=== PATIENT | female | born 2005 | race Caucasian/White ===

== ENCOUNTER 2024-10-26 13:47 | Outpatient (AMB) | payer MEDICAID, SELFPAY ==
--- NOTE | 2024-10-26 14:05 | OBCLNT_ITS ---
<Statement entered by Priya Jennings MD - 10/26/24 17:58> This patient was not seen today. She was sent to the lab and to have a transvaginal ultrasound as I had to go to attend the patient at the hospital. She will be rescheduled for 4 weeks. Vital Signs 10/26/24 14:06 Height 1.73 m Height Method Stated Weight 86.693 kg Weight Measurement Method Standing Scale BMI 29.0 BP 110/61 Blood Pressure Source Automatic Cuff Blood Pressure Location Left Upper Arm Position Sitting Respiration 14 Pulse 65 Pulse Source Monitor Temp 96.8 F Temp Source Oral Pulse Oximetry (%) 98 Oxygen Delivery Method Room Air Allergies/Home Meds Allergies & Medications Allergies No Known Allergies Allergy (Verified 10/26/24 14:08) Medication Reconciliation ferrous sulfate 300 mg (60 mg iron)/5 mL oral liquid 300 mg PO QDAY 10/26/24 [History Confirmed 10/26/24] folic acid 400 mcg tablet 0.4 mg PO QDAY 10/26/24 [History Confirmed 10/26/24] Intake Visit Data Collection New Patient or Established: New Patient (never been to [facility]) Reason for Visit:: care Seen by Clinical Staff ONLY (RN/MA): No Bull Driver Required: Yes Do You Feel Safe at Home: Yes Authorities Contacted: N/A PCP or OBGYN visit in last 3 months: No Hx Now: Yes Are you currently on any form of Control: No Last menstrual period: 08/21/24 Pain Present Currently: No Pain Scale Used: Caceres-Lomas/Numerical Pain scale:: 0 Smoking Status Smoking Status: Never smoker Questionnaires Covid-19 Vaccine Questionnaire Has patient been vacinated for Covid-19 Have you been vacinated for Covid-19: No PHQ-9 PHQ-2 Over the last 2 weeks, how often have you been bothered by any of the following problems? 1. Little interest or pleasure in doing things: not at all 2. Feeling down, depressed, or hopeless: not at all Total score: 0 PHQ-9 3. Trouble falling or staying asleep, or sleeping too much: Not at all 4. Feeling tired or having little energy: Not at all 5. Poor appetite or overeating: Not at all 6. Feeling bad about yourself - or that you are a failure or have let yourself or your family down: Not at all 7. Trouble concentrating on things, such as reading the newspaper or watching television: Not at all 8. Moving or speaking so slowly that other people could have noticed? - Or the opposite - being so fidgety or restless that you have been moving around a lot more than usual: not at all 9. Thoughts that you would be better off or of hurting yourself in some way: Not at all Total score: 0 Source: Developed by Drs. Miki Leigh, Smitha Nichole, Kenneth Moya and colleagues, with an educational miladis from [employer]. Depression screen completed yes Social History Living Situation History Marital Status: Lives With: Family Housing: House Tobacco History Smoking Status: Never smoker Second Hand Smoke Exposure: No Alcohol History Alcohol Intake: Former Alcohol Intake Frequency: holidays/special occasions only Substance Use History Substance Use: none Domestic Abuse History Do You Feel Safe at Home: Yes Past Medical History Past Medical History Have you ever been diagnosed with any of the following: Neurological Problems Cerebrovascular Accident (CVA): No Transient Ischemic Attacks (TIA): No Dementia: No Alzheimer's Disease: No Parkinson's Disease: No Brain Tumor: No Meningitis: No Seizures: No Epilepsy: No Multiple Sclerosis: No Cerebral Palsy: No Amyotrophic Lateral Sclerosis (ALS/Esperanza Gehrig's): No Guillain-[place] Syndrome: No Spina Bifida: No Paralysis: No Peripheral Neuropathy: No Teixeira's Palsy: No Subdural Hematoma: No Migraine: No Head Trauma: No Spinal Cord Injury: No Traumatic Brain Injury: No Cardiology Problems Myocardial Infarction: No Cardiac Arrhythmia: No Atrial Fibrillation: No Angina: No Heart Murmur: No Coronary Artery Disease: No Atherosclerotic Heart Disease: No Peripheral Vascular Disease: No Hypercholesterolemia: No Aneurysm: No Congestive Heart Failure: No Congenital Heart Disease: No Valvular Heart Disease: No Rheumatic Fever: No Cardiomyopathy: No Edema: No Pericarditis: No Cellulitis: No Hypertension: No Hypotension: No Varicose Veins: No Respiratory Problems Chronic Obstructive Pulmonary Disease (COPD): No Asthma: No Bronchitis: No Emphysema: No Pneumonia: No Pulmonary Fibrosis: No Tuberculosis: No Pulmonary Embolism: No Pulmonary Edema: No Sleep Apnea: No CPAP Dependent: No Respiratory Aspiration: No Dyspnea: No Orthopnea: No Hx Cough: No Cough: No Wheezing: No Chest Deformities: No Smoking: No Smoking Cessation Counseling: No Smoking Exposure: No Tobacco Use: No Clubbing: No Exposure to Respiratory Irritants: No Intubation: No Stomache/Intestinal Problems Liver Cancer: No Hepatitis: No Cirrhosis: No Pancreatic Cancer: No Pancreatitis: No Celiac Disease: No Gall Bladder Disease: No Gastrointestinal Bleed: No Esophageal Varices: No Justin's Esophagus: No Colitis: No Ulcerative Colitis: No Diverticulitis: No Diverticulosis: No Ulcer: No Colorectal Cancer: No Irritable Bowel: No Crohn's Disease: No Obstructive Bowel: No Hiatal Hernia: No Hemorrhoids: No Gastroesophageal Reflux Disease: No Polyps: No Obesity: No Genital/Urinary Problems Chronic Kidney Disease: No Renal Disease: No Kidney Stones: No Polycystic Kidney Disease: No Neurogenic Bladder: No Inguinal Hernia: No Dialysis: No Prostate Cancer: No Benign Prostatic Hyperplasia: No Reproductive Problems Breast Cancer: No Endometriosis: No Fibroids: No Genital Herpes: No Gonorrhea: No Pelvic Inflammatory Disease: No Polycystic Ovarian Syndrome: No Previous Pregnancies: No Syphilis: No Testicular Cancer: No Uterine Prolapse: No Musculoskeletal Problems Muscular Dystrophy: No Myasthenia Gravis: No Marfan's Syndrome: No Bone Cancer: No Arthritis: No Rheumatoid Arthritis: No Osteoporosis: No Degenerative Disk Disease: No Gout: No Scoliosis: No Carpal Tunnel Syndrome: No Fibromyalgia: No Fractures: No Degenerative Joint Disease: No Osteomyelitis: No Poliovirus: No Head,Eye,Nose,Throat Problems Cataracts: No Glaucoma: No Blind: No Retinal Detachment: No Macular Degeneration: No Chronic Ear Infections: No Deafness: No Eye Prosthesis: No Endocrine Problems Diabetes Mellitus Type 2: Yes (mother, father and grandfather) Hypoglycemia: No [place]'s Syndrome: No Art's Disease: No Hyperthyroidism: No Hypothyroidism: No Thyroid Cancer: No Parathyroid Disease: No Pituitary Disease: No Systemic Lupus Erythematosus: No Syndrome of Inappropriate Antidiuretic Hormone: No Adrenal Disease: No Graves' Disease: No Blood Problems Anemia: Yes (mother) Leukemia: No Hemophilia: No Thalassemia: No Sickle Cell Disease: Yes (mother) Clotting Problems: No Psychologic Problems Schizophrenia: No Recreational Drug Use: No Bipolar Disorder: No Depression: No Anxiety: No Behavior Problems: No Self-Mutilation: No Attention Deficit Disorder: No Attention Deficit Hyperactivity Disorder: No Depression: No Post Traumatic Stress Disorder: No Eating Disorder: No Other Problems Hospitalization: No Autoimmune Disease: No Down Syndrome: No Autism: No Developmental Delay: No Cosmetic Surgery: No Shingles: No Falls: No Blood Transfusions: No Blood Transfusion Reaction: No Anesthesia Reactions: No Organ Transplant: No Chemotherapy: No Radiation Therapy: No Hyperbaric Therapy: No MRSA: No VRSA: No Vancomycin-Resistant Enterococci: No Human Immunodeficiency Virus (HIV): No Chicken Pox: No Measles: No Mumps: No Rubella (Monegasque Measles): No Pertussis: No Klebsiella Pneumoniae Carbapenemase Producing Bacteria: No Clostridium Difficile: No Hepatitis A: No Hepatitis B: No Hepatitis C: No Communicable Disease: No Cancer: No Cervical Cancer: No Lung Cancer: No Ovarian Cancer: No Surgical History Angioplasty: No Appendectomy: No Bariatric Surgery: No Breast Surgery: No Cancer Surgery: No Carotid Endarterectomy: No Cholecystectomy: No Colectomy: No Colostomy: No Coronary Artery Bypass Graft: No Valve Replacement: No Herniorrhaphy: No Total Hip Replacement: No Total Knee Replacement: No Hysterectomy: No Pacemaker: No Sinus Surgery: No Splenectomy: No TAHBSO-Total Abdominal Hysterectomy: No Thyroidectomy: No Ureter Stent: No OB Initial Visit Menstrual History Menstrual reliability: definite Flow: normal Menstrual regularity: regular Monthly: Yes Age at menarche: 10 On control pills at conception: No Date of positive home test: 09/23/24 Associated symptoms (LMP): Reports vomiting OB History : 1 Para: 0 Hx # Pregnancies: 0 Hx Total # of Abortions (Spontaneous & Elective): 0 # of Living Children: 0 Infection History & Risk Evaluation History of STDs: none Varicella/chicken pox status: immunized Genetic Screening & History Genetic Screening/Teratology Counseling - Includes patient, baby's father, or anyone in either family with: 1. Patient's age 35 years or older as of estimated date of delivery: No 2. Thalassemia (Macedonian, Scottish, Mediterranean, or Background); MCV less than 80: No 3. Neural Tube Defect (Meningomyelocele, Spina Bifida, or Anencephaly): No 4. Congenital Heart Defect: No 5. Down Syndrome: No 6. Deangelo-Sachs (Ashkenazi Roman Catholic, Cajun, [place]awk [place]): No 7. Deya Disease (Ashkenazi Roman Catholic): No 8. Familial Dysautonomia (Ashkenazi Roman Catholic): No 9. Sickle Cell Disease or Trait (): No 10. Hemophilia or other blood disorders: No 11. Muscular Dystrophy: No 12. Cystic Fibrosis: No 13. Ayo's Chorea: No 14. Mental Retardation/Autism: No 15. Other inherited genetic or chromosomal disorder: No 16. Maternal Metabolic Disorder (EG,TYPE 1 Diabetes, PKU): No 17. Patient or baby's father had a child with defects not listed above: No 18. Recurrent loss or a stillbirth: No 19. Medications (including supplements, vitamins, herbs or otc drugs)/illicit/recreational drugs/alcohol since last menstrual period: No 20. Any other: No Infection History 1. Live with someone with TB or exposed to TB: No 2. Rash or viral illness since last menstrual period: No 3. Hepatitis B,C: No Other (see comments) Source: [employer] Review of Systems Gastrointestinal Gastrointestinal: Reports vomiting Office Procedures OB Clinic LOC & Office Proc's Nursing/Assessment Patient Status: Initial/New Patient OB Clinic Nursing Assessment: Medication Reconciliation, Update PMH in EMR and Vital Signs OB Clinic Coordination of Care: Complex Care and Chronic Disease 1-5, Consent,records obtained, informed consent, Education Simp Pt/Fam, Lab and Imaging orders, Results/Orders obtained and Staff clarify orders New Patient Charge New Patient Point Assignment: 1104 New Patient Point Charge: ASSISTANT GUEST SERVICES MANAGER Level 3 ([id number])
[2024-10-26 14:06] VITALS: BP 110/61; PULSE 65; RESP 14; TEMP 36; O2SAT 98; BMI 29.0
== END 2024-10-26 14:17 | disposition home or self-care (01) ==
LOC: HODSOBC 13:47
PROVIDERS: Supervising Provider Obstetrics & Gynecology; Visit Provider Obstetrics & Gynecology
DX: Z76.89 Persons encountering health services in other specified circumstances (principal)
CPT/HCPCS: 99203; G0463

== ENCOUNTER 2024-10-30 13:02 | Outpatient (AMB) | payer MEDICAID, SELFPAY ==
[2024-10-30 13:11] VITALS: BP 115/76; PULSE 69; RESP 14; TEMP 36.5; O2SAT 98; BMI 29.1
--- NOTE | 2024-10-30 13:11 | OBCLNT_ITS ---
Vital Signs 10/30/24 13:11 Height 1.73 m Height Method Stated Weight 87.146 kg Weight Measurement Method Standing Scale BMI 29.1 BP 115/76 Blood Pressure Source Automatic Cuff Blood Pressure Location Left Upper Arm Position Sitting Respiration 14 Pulse 69 Pulse Source Monitor Temp 97.7 F Temp Source Oral Pulse Oximetry (%) 98 Oxygen Delivery Method Room Air Allergies/Home Meds Allergies & Medications Allergies No Known Allergies Allergy (Verified 10/30/24 13:12) Medication Reconciliation ferrous sulfate 300 mg (60 mg iron)/5 mL oral liquid 300 mg PO QDAY 10/26/24 [History Confirmed 10/30/24] folic acid 400 mcg tablet 0.4 mg PO QDAY 10/26/24 [History Confirmed 10/30/24] Intake Visit Data Collection New Patient or Established: Established Patient (seen at [facility] within 3 years) Reason for Visit:: CARE Seen by Clinical Staff ONLY (RN/MA): No Mixing Machine Attendant Required: Yes Mixing Machine Attendant's name/title: Suzette Devries Do You Feel Safe at Home: Yes Authorities Contacted: N/A PCP or OBGYN visit in last 3 months: No Hx Now: Yes Are you currently on any form of Control: No Last menstrual period: 08/21/24 Pain Present Currently: No Pain Scale Used: Caceres-Lomas/Numerical Pain scale:: 0 Smoking Status Smoking Status: Never smoker Questionnaires Covid-19 Vaccine Questionnaire Has patient been vacinated for Covid-19 Have you been vacinated for Covid-19: No PHQ-9 PHQ-2 Over the last 2 weeks, how often have you been bothered by any of the following problems? 1. Little interest or pleasure in doing things: not at all 2. Feeling down, depressed, or hopeless: not at all Total score: 0 PHQ-9 3. Trouble falling or staying asleep, or sleeping too much: Not at all 4. Feeling tired or having little energy: Not at all 5. Poor appetite or overeating: Not at all 6. Feeling bad about yourself - or that you are a failure or have let yourself or your family down: Not at all 7. Trouble concentrating on things, such as reading the newspaper or watching television: Not at all 8. Moving or speaking so slowly that other people could have noticed? - Or the opposite - being so fidgety or restless that you have been moving around a lot more than usual: not at all 9. Thoughts that you would be better off or of hurting yourself in some way: Not at all Total score: 0 Source: Developed by Drs. Miki Leigh, Smitha Nichole, Kenneth Moya and colleagues, with an educational miladis from [employer]. Depression screen completed yes Social History Living Situation History Marital Status: Lives With: Family Housing: House Tobacco History Smoking Status: Never smoker Second Hand Smoke Exposure: No Alcohol History Alcohol Intake: Former Alcohol Intake Frequency: holidays/special occasions only Substance Use History Substance Use: none Domestic Abuse History Do You Feel Safe at Home: Yes Past Medical History Past Medical History Have you ever been diagnosed with any of the following: Neurological Problems Cerebrovascular Accident (CVA): No Transient Ischemic Attacks (TIA): No Dementia: No Alzheimer's Disease: No Parkinson's Disease: No Brain Tumor: No Meningitis: No Seizures: No Epilepsy: No Multiple Sclerosis: No Cerebral Palsy: No Amyotrophic Lateral Sclerosis (ALS/Esperanza Gehrig's): No Guillain-[place] Syndrome: No Spina Bifida: No Paralysis: No Peripheral Neuropathy: No Teixeira's Palsy: No Subdural Hematoma: No Migraine: No Head Trauma: No Spinal Cord Injury: No Traumatic Brain Injury: No Cardiology Problems Myocardial Infarction: No Cardiac Arrhythmia: No Atrial Fibrillation: No Angina: No Heart Murmur: No Coronary Artery Disease: No Atherosclerotic Heart Disease: No Peripheral Vascular Disease: No Hypercholesterolemia: No Aneurysm: No Congestive Heart Failure: No Congenital Heart Disease: No Valvular Heart Disease: No Rheumatic Fever: No Cardiomyopathy: No Edema: No Pericarditis: No Cellulitis: No Hypertension: No Hypotension: No Varicose Veins: No Respiratory Problems Chronic Obstructive Pulmonary Disease (COPD): No Asthma: No Bronchitis: No Emphysema: No Pneumonia: No Pulmonary Fibrosis: No Tuberculosis: No Pulmonary Embolism: No Pulmonary Edema: No Sleep Apnea: No CPAP Dependent: No Respiratory Aspiration: No Dyspnea: No Orthopnea: No Hx Cough: No Cough: No Wheezing: No Chest Deformities: No Smoking: No Smoking Cessation Counseling: No Smoking Exposure: No Tobacco Use: No Clubbing: No Exposure to Respiratory Irritants: No Intubation: No Stomache/Intestinal Problems Liver Cancer: No Hepatitis: No Cirrhosis: No Pancreatic Cancer: No Pancreatitis: No Celiac Disease: No Gall Bladder Disease: No Gastrointestinal Bleed: No Esophageal Varices: No Justin's Esophagus: No Colitis: No Ulcerative Colitis: No Diverticulitis: No Diverticulosis: No Ulcer: No Colorectal Cancer: No Irritable Bowel: No Crohn's Disease: No Obstructive Bowel: No Hiatal Hernia: No Hemorrhoids: No Gastroesophageal Reflux Disease: No Obesity: No Genital/Urinary Problems Renal Disease: No Kidney Stones: No Polycystic Kidney Disease: No Neurogenic Bladder: No Inguinal Hernia: No Dialysis: No Prostate Cancer: No Benign Prostatic Hyperplasia: No Reproductive Problems Breast Cancer: No Endometriosis: No Fibroids: No Genital Herpes: No Gonorrhea: No Pelvic Inflammatory Disease: No Polycystic Ovarian Syndrome: No Previous Pregnancies: No Syphilis: No Testicular Cancer: No Uterine Prolapse: No Musculoskeletal Problems Muscular Dystrophy: No Myasthenia Gravis: No Marfan's Syndrome: No Bone Cancer: No Arthritis: No Rheumatoid Arthritis: No Osteoporosis: No Degenerative Disk Disease: No Gout: No Scoliosis: No Carpal Tunnel Syndrome: No Fibromyalgia: No Fractures: No Degenerative Joint Disease: No Osteomyelitis: No Poliovirus: No Head,Eye,Nose,Throat Problems Cataracts: No Glaucoma: No Blind: No Retinal Detachment: No Macular Degeneration: No Chronic Ear Infections: No Deafness: No Eye Prosthesis: No Endocrine Problems Diabetes Mellitus Type 2: Yes (mother, father and grandfather) Hypoglycemia: No [place]'s Syndrome: No Art's Disease: No Hyperthyroidism: No Hypothyroidism: No Thyroid Cancer: No Parathyroid Disease: No Pituitary Disease: No Systemic Lupus Erythematosus: No Syndrome of Inappropriate Antidiuretic Hormone: No Adrenal Disease: No Graves' Disease: No Blood Problems Anemia: Yes (mother) Leukemia: No Hemophilia: No Thalassemia: No Sickle Cell Disease: Yes (mother) Clotting Problems: No Psychologic Problems Schizophrenia: No Recreational Drug Use: No Bipolar Disorder: No Depression: No Anxiety: No Behavior Problems: No Self-Mutilation: No Attention Deficit Disorder: No Attention Deficit Hyperactivity Disorder: No Depression: No Post Traumatic Stress Disorder: No Eating Disorder: No Other Problems Hospitalization: No Down Syndrome: No Autism: No Developmental Delay: No Cosmetic Surgery: No Shingles: No Falls: No Blood Transfusions: No Blood Transfusion Reaction: No Anesthesia Reactions: No Organ Transplant: No Chemotherapy: No Radiation Therapy: No Hyperbaric Therapy: No MRSA: No VRSA: No Vancomycin-Resistant Enterococci: No Human Immunodeficiency Virus (HIV): No Chicken Pox: No Measles: No Mumps: No Rubella (Greek Measles): No Pertussis: No Klebsiella Pneumoniae Carbapenemase Producing Bacteria: No Clostridium Difficile: No Hepatitis A: No Hepatitis B: No Hepatitis C: No Communicable Disease: No Cancer: No Cervical Cancer: No Lung Cancer: No Ovarian Cancer: No Surgical History Angioplasty: No Appendectomy: No Bariatric Surgery: No Breast Surgery: No Cancer Surgery: No Carotid Endarterectomy: No Cholecystectomy: No Colectomy: No Colostomy: No Coronary Artery Bypass Graft: No Valve Replacement: No Herniorrhaphy: No Total Hip Replacement: No Total Knee Replacement: No Hysterectomy: No Pacemaker: No Sinus Surgery: No Splenectomy: No TAHBSO-Total Abdominal Hysterectomy: No Thyroidectomy: No Ureter Stent: No History of Present Illness HPI Narrative Patient is a 19-year-old presenting for transfer of care from [place] at 10 weeks gestation. Last menstrual period was on 08/21/2024, with an estimated due date of 05/28/2025. Patient brought limited records, including an ultrasound performed on 10/07/2024 at 6 weeks and 5 days gestation. She reports experiencing morning sickness with vomiting. Patient denies any spotting, cramping, or other problems. She has no known long-term medical conditions. Blood group is A-positive, with a previous glucose test result of 70.8 mg/dL and hemoglobin level of 15.1. Diagnostic Test Results and Labs: - Ultrasound (10-07-2024): Performed at 6 weeks and 5 days gestation. - Blood tests from [place] (10-08-2024): - Blood group: A-positive - Glucose: 70.8 mg/dL - Hemoglobin: 15.1 g/dL - Blood work (10-30-2024): - Hepatitis B surface antigen: Negative - Hepatitis C: Negative - Hemoglobin: 15.3 g/dL - Rubella: Immune - RPR: Non-reactive - Blood group: A positive - Antibody screen: Negative - HIV: Negative OB Initial Visit Menstrual History Menstrual reliability: definite Flow: normal Menstrual regularity: regular Monthly: Yes Age at menarche: 10 On control pills at conception: No Date of positive home test: 09/23/24 Associated symptoms (LMP): Reports amenorrhea; Denies nausea, vomiting, fatigue, breast tenderness, urinary frequency, irritability, bloating or other OB History : 1 Para: 0 Hx # Pregnancies: 0 Hx Total # of Abortions (Spontaneous & Elective): 0 # of Living Children: 0 Infection History & Risk Evaluation History of STDs: none Genetic Screening & History Genetic Screening/Teratology Counseling - Includes patient, baby's father, or anyone in either family with: 1. Patient's age 35 years or older as of estimated date of delivery: No 2. Thalassemia (Icelandic, Icelandic, Mediterranean, or Background); MCV less than 80: No 3. Neural Tube Defect (Meningomyelocele, Spina Bifida, or Anencephaly): No 4. Congenital Heart Defect: No 5. Down Syndrome: No 6. Deangelo-Sachs (Ashkenazi Orthodox, Cajun, Amharic [place]): No 7. Deya Disease (Ashkenazi Orthodox): No 8. Familial Dysautonomia (Ashkenazi Orthodox): No 9. Sickle Cell Disease or Trait (): No 10. Hemophilia or other blood disorders: No 11. Muscular Dystrophy: No 12. Cystic Fibrosis: No 13. Springer's Chorea: No 14. Mental Retardation/Autism: No 15. Other inherited genetic or chromosomal disorder: No 16. Maternal Metabolic Disorder (EG,TYPE 1 Diabetes, PKU): No 17. Patient or baby's father had a child with defects not listed above: No 18. Recurrent loss or a stillbirth: No 19. Medications (including supplements, vitamins, herbs or otc drugs)/illicit /recreational drugs/alcohol since last menstrual period: No 20. Any other: No Infection History 1. Live with someone with TB or exposed to TB: No 2. Rash or viral illness since last menstrual period: No 3. Hepatitis B,C: No Other (see comments) Source: [employer] OB Flowsheet OB Flowsheet Initial Weight: Not Recorded Date -?-?-?-?-?-?-?-?-?-?-?-?- EGA Weight Edema CTX Effacement BP Fundal ht Pres Dilation Effacement Station Visit Note Alb Glu FHR Mov 10/30/24 -?-?-?-?-?-?-?-?-?-?-?-?- 10w 0d 87.146 kg 115/76 Plea se see notes Review of Systems Review of Systems Systems Reviewed: All systems reviewed, normal except as documented Constitutional Constitutional: Denies fatigue Gastrointestinal Gastrointestinal: Denies bloating, Denies nausea and Denies vomiting Genitourinary Genitourinary: Reports amenorrhea and Denies urinary frequency Psychiatric Psychiatric: Denies irritability Endocrine Endocrine: Denies fatigue Exam General Limitations: no limitations General Appearance: alert, in no apparent distress, comfortable, cooperative, healthy appearing, well developed and well groomed Head Head exam: atraumatic, normocephalic and normal inspection Neck Neck exam: Present normal inspection, full ROM and trachea midline Chest Chest inspection: Present normal inspection and symmetric chest wall rise Abdominal Abdominal exam: Present soft and normal bowel sounds Extremities Extremities exam: Present normal inspection and full ROM Back Back exam: Present normal inspection and full ROM Psych Psychiatric exam: Present normal affect and normal mood Skin Skin exam: Present warm, dry, intact and normal color Assessment & Plan Diagnosis / Problem List (1) Young primigravida in first trimester: Status: Acute Plan: , 10 weeks gestation: - Patient is 19-year-old at 10 weeks gestation based on LMP of 08/21/2024, VITO 05/28/2025. - Previous ultrasound at 6w5d on 10/07/2024 reviewed. - Recent labs: A+ blood type, glucose 70.8 mg/dL, hemoglobin 15.1 g/dL. - Patient reports nausea and vomiting. - Current exam revealed suboptimal ultrasound images. - Labs from 10/30/2024: hep B surface antigen negative, hep C negative, hemoglobin 15.3 g/dL, rubella immune, RPR non-reactive, blood type A+ with negative antibody screen, HIV negative. - First , no long-term medical problems such as asthma. Plan: - Schedule outpatient ultrasound for better imaging. - Await pending lab results: gonorrhea, chlamydia, and NIPT. - Continue vitamins; no additional iron supplementation needed due to good hemoglobin levels. - Follow-up appointment in one week after outpatient ultrasound. (2) Hyperemesis gravidarum: Status: Acute Plan: Prescribed Diclegis and ZOfran Review in 1 week ER precautions discussed (3) : Status: Acute Office Procedures OB Clinic LOC & Office Proc's Nursing/Assessment Patient Status: Established Patient OB Clinic Nursing Assessment: Medication Reconciliation, Update PMH in EMR and Vital Signs OB Clinic Coordination of Care: Complex Care and Chronic Disease 1-5, Consent,records obtained, informed consent, Education Simp Pt/Fam, 1 Ins Authorization, Lab and Imaging orders, Results/Orders obtained and Staff clarify orders Special Needs: Heart tones Established Patient Charge Established Patient Point Assignment: 150 Established Patient Point Charge: EP Level 4 (120-155) Antepartum Initial or Follow-up Antepartum Initial Visit: Yes Bedside Ultrasounds US Transabdominal >14 weeks at bedside: Yes
== END 2024-10-30 13:32 | disposition home or self-care (01) ==
LOC: HODSOBC 13:02
PROVIDERS: Supervising Provider Obstetrics & Gynecology; Visit Provider Obstetrics & Gynecology
DX: O09.891 Supervision of other high risk pregnancies, first trimester (principal); O21.0 Mild hyperemesis gravidarum; Z3A.10 10 weeks gestation of pregnancy
CPT/HCPCS: 76805; 99204; 99214; G0463

== ENCOUNTER 2024-11-06 10:50 | Outpatient (AMB) | payer MEDICAID, SELFPAY ==
--- NOTE | 2024-11-06 10:57 | AMB.OBVISIT ---
Vital Signs 11/06/24 10:58 Height 1.73 m Height Method Stated Weight 86.636 kg Weight Measurement Method Standing Scale BMI 28.9 BP 113/75 Blood Pressure Source Automatic Cuff Blood Pressure Location Left Upper Arm Position Sitting Respiration 16 Pulse 83 Pulse Source Monitor Temp 96.3 F L Temp Source Oral Pulse Oximetry (%) 96 Oxygen Delivery Method Room Air Allergies/Home Meds Allergies & Medications Allergies No Known Allergies Allergy (Verified 11/06/24 10:59) Medication Reconciliation ferrous sulfate 300 mg (60 mg iron)/5 mL oral liquid 300 mg PO QDAY 10/26/24 [History Confirmed 11/06/24] folic acid 400 mcg tablet 0.4 mg PO QDAY 10/26/24 [History Confirmed 11/06/24] doxylamine 10 mg-pyridoxine (vit B6) 10 mg tablet,delayed release (Diclegis) 1 tab PO QDAY 30 days #30 tabs 11/06/24 [Rx] ondansetron 4 mg disintegrating tablet 4 mg PO Q6H PRN nausea and vomiting 30 days #120 tabs 11/06/24 [Rx] vitamins no.119-iron fumarate 29 mg-folic acid 1 mg tablet 1 tab PO QDAY 90 days #90 tabs 11/06/24 [Rx] Intake Visit Data Collection New Patient or Established: Established Patient (seen at [facility] within 3 years) Reason for Visit:: OBI Seen by Clinical Staff ONLY (RN/MA): No Wraparound Facilitator Required: Yes Wraparound Facilitator's name/title: DARENROBERTO CARLOS HERBERT / MEDICAL ASSITANT Do You Feel Safe at Home: Yes Authorities Contacted: N/A PCP or OBGYN visit in last 3 months: Yes Date of Last PCP or OBGYN visit: 10/30/24 Hx Now: Yes Are you currently on any form of Control: No Pain Present Currently: No Pain Scale Used: Caceres-Lomas/Numerical Pain scale:: 0 Smoking Status Smoking Status: Never smoker Questionnaires Covid-19 Vaccine Questionnaire Has patient been vacinated for Covid-19 Have you been vacinated for Covid-19: Yes PHQ-9 PHQ-2 Over the last 2 weeks, how often have you been bothered by any of the following problems? 1. Little interest or pleasure in doing things: not at all 2. Feeling down, depressed, or hopeless: not at all Total score: 0 PHQ-9 3. Trouble falling or staying asleep, or sleeping too much: Not at all 4. Feeling tired or having little energy: Not at all 5. Poor appetite or overeating: Not at all 6. Feeling bad about yourself - or that you are a failure or have let yourself or your family down: Not at all 7. Trouble concentrating on things, such as reading the newspaper or watching television: Not at all 8. Moving or speaking so slowly that other people could have noticed? - Or the opposite - being so fidgety or restless that you have been moving around a lot more than usual: not at all 9. Thoughts that you would be better off or of hurting yourself in some way: Not at all Total score: 0 If you checked off any problems, how difficult have these problems made it for you to do your work, take care of things at home, or get along with other people?: not difficult at all Source: Developed by Drs. Miki Leigh, Smitha Nichole, Kenneth Moya and colleagues, with an educational miladis from [employer]. Depression screen completed yes Social History Living Situation History Marital Status: Single Lives With: Family Housing: House Tobacco History Smoking Status: Never smoker Second Hand Smoke Exposure: No Alcohol History Alcohol Intake: Former Alcohol Intake Frequency: holidays/special occasions only Substance Use History Substance Use: none Domestic Abuse History Do You Feel Safe at Home: Yes Past Medical History Past Medical History Have you ever been diagnosed with any of the following: Neurological Problems Cerebrovascular Accident (CVA): No Transient Ischemic Attacks (TIA): No Dementia: No Alzheimer's Disease: No Parkinson's Disease: No Brain Tumor: No Meningitis: No Seizures: No Epilepsy: No Multiple Sclerosis: No Cerebral Palsy: No Amyotrophic Lateral Sclerosis (ALS/Esperanza Gehrig's): No Guillain-Girdletree Syndrome: No Spina Bifida: No Paralysis: No Peripheral Neuropathy: No Teixeira's Palsy: No Subdural Hematoma: No Migraine: No Head Trauma: No Spinal Cord Injury: No Traumatic Brain Injury: No Cardiology Problems Myocardial Infarction: No Cardiac Arrhythmia: No Atrial Fibrillation: No Angina: No Heart Murmur: No Coronary Artery Disease: No Atherosclerotic Heart Disease: No Peripheral Vascular Disease: No Hypercholesterolemia: No Aneurysm: No Congestive Heart Failure: No Congenital Heart Disease: No Valvular Heart Disease: No Rheumatic Fever: No Cardiomyopathy: No Edema: No Pericarditis: No Cellulitis: No Hypertension: No Hypotension: No Varicose Veins: No Respiratory Problems Chronic Obstructive Pulmonary Disease (COPD): No Asthma: No Bronchitis: No Emphysema: No Pneumonia: No Pulmonary Fibrosis: No Tuberculosis: No Pulmonary Embolism: No Pulmonary Edema: No Sleep Apnea: No CPAP Dependent: No Respiratory Aspiration: No Dyspnea: No Orthopnea: No Hx Cough: No Cough: No Wheezing: No Chest Deformities: No Smoking: No Smoking Cessation Counseling: No Smoking Exposure: No Tobacco Use: No Clubbing: No Exposure to Respiratory Irritants: No Intubation: No Stomache/Intestinal Problems Liver Cancer: No Hepatitis: No Cirrhosis: No Pancreatic Cancer: No Pancreatitis: No Celiac Disease: No Gall Bladder Disease: No Gastrointestinal Bleed: No Esophageal Varices: No Justin's Esophagus: No Colitis: No Ulcerative Colitis: No Diverticulitis: No Diverticulosis: No Ulcer: No Colorectal Cancer: No Irritable Bowel: No Crohn's Disease: No Obstructive Bowel: No Hiatal Hernia: No Hemorrhoids: No Gastroesophageal Reflux Disease: No Obesity: No Genital/Urinary Problems Renal Disease: No Kidney Stones: No Polycystic Kidney Disease: No Neurogenic Bladder: No Inguinal Hernia: No Dialysis: No Prostate Cancer: No Benign Prostatic Hyperplasia: No Reproductive Problems Breast Cancer: No Endometriosis: No Fibroids: No Genital Herpes: No Gonorrhea: No Pelvic Inflammatory Disease: No Polycystic Ovarian Syndrome: No Previous Pregnancies: No Syphilis: No Testicular Cancer: No Uterine Prolapse: No Musculoskeletal Problems Muscular Dystrophy: No Myasthenia Gravis: No Marfan's Syndrome: No Bone Cancer: No Arthritis: No Rheumatoid Arthritis: No Osteoporosis: No Degenerative Disk Disease: No Gout: No Scoliosis: No Carpal Tunnel Syndrome: No Fibromyalgia: No Fractures: No Degenerative Joint Disease: No Osteomyelitis: No Poliovirus: No Head,Eye,Nose,Throat Problems Cataracts: No Glaucoma: No Blind: No Retinal Detachment: No Macular Degeneration: No Chronic Ear Infections: No Deafness: No Eye Prosthesis: No Endocrine Problems Diabetes Mellitus Type 2: Yes (mother, father and grandfather) Hypoglycemia: No Ching's Syndrome: No Art's Disease: No Hyperthyroidism: No Hypothyroidism: No Thyroid Cancer: No Parathyroid Disease: No Pituitary Disease: No Systemic Lupus Erythematosus: No Syndrome of Inappropriate Antidiuretic Hormone: No Adrenal Disease: No Graves' Disease: No Blood Problems Anemia: Yes (mother) Leukemia: No Hemophilia: No Thalassemia: No Sickle Cell Disease: Yes (mother) Clotting Problems: No Psychologic Problems Schizophrenia: No Recreational Drug Use: No Bipolar Disorder: No Depression: No Anxiety: No Behavior Problems: No Self-Mutilation: No Attention Deficit Disorder: No Attention Deficit Hyperactivity Disorder: No Depression: No Post Traumatic Stress Disorder: No Eating Disorder: No Other Problems Hospitalization: No Down Syndrome: No Autism: No Developmental Delay: No Cosmetic Surgery: No Shingles: No Falls: No Blood Transfusions: No Blood Transfusion Reaction: No Anesthesia Reactions: No Organ Transplant: No Chemotherapy: No Radiation Therapy: No Hyperbaric Therapy: No MRSA: No VRSA: No Vancomycin-Resistant Enterococci: No Human Immunodeficiency Virus (HIV): No Chicken Pox: No Measles: No Mumps: No Rubella (Icelandic Measles): No Pertussis: No Klebsiella Pneumoniae Carbapenemase Producing Bacteria: No Clostridium Difficile: No Hepatitis A: No Hepatitis B: No Hepatitis C: No Communicable Disease: No Cancer: No Cervical Cancer: No Lung Cancer: No Ovarian Cancer: No Surgical History Angioplasty: No Appendectomy: No Bariatric Surgery: No Breast Surgery: No Cancer Surgery: No Carotid Endarterectomy: No Cholecystectomy: No Colectomy: No Colostomy: No Coronary Artery Bypass Graft: No Valve Replacement: No Herniorrhaphy: No Total Hip Replacement: No Total Knee Replacement: No Hysterectomy: No Pacemaker: No Sinus Surgery: No Splenectomy: No TAHBSO-Total Abdominal Hysterectomy: No Thyroidectomy: No Ureter Stent: No History of Present Illness HPI Narrative The patient reports no nausea for the last 3 days. The patient denies any bleeding or spotting. Review of Systems Review of Systems Systems Reviewed: All systems reviewed, normal except as documented Visit VITO Calculator Estimated Delivery Date Method Current WG Current Estimate 05/28/25 LMP (Certain) 11w 0d Other Estimates 06/02/25 Ultrasound #1 10w 2d Initial Weight: Not Recorded Date <del>?</del> EGA Weight Edema CTX Effacement BP Fundal ht Pres Dilation Effacement Station Visit Note Alb Glu FHR Mov 10/30/24 <del>?</del> 10w 0d 87.146 kg 115/76 Please see notes Exam General Limitations: no limitations General Appearance: alert, in no apparent distress, comfortable, cooperative, healthy appearing, well developed and well groomed Head Head exam: atraumatic, normocephalic and normal inspection Eye Eye exam: Present normal appearance, PERRL and EOMI ENT ENT exam: Present normal exam, normal oropharynx and mucous membranes moist Neck Neck exam: Present normal inspection, full ROM and trachea midline Card Cardiovascular exam: Present regular rate, normal rhythm and normal heart sounds Abdominal Abdominal exam: Present soft and normal bowel sounds Exp OB exam: Present other (- Abdomen: Ultrasound performed. Fetus visualized with movement observed. heart rate measured at 174 bpm.) Extremities Extremities exam: Present normal inspection and full ROM Back Back exam: Present normal inspection and full ROM Psych Psychiatric exam: Present normal affect and normal mood Skin Skin exam: Present warm, dry, intact and normal color Assessment & Plan Diagnosis / Problem List (1) : Status: Acute (2) Hyperemesis gravidarum: Status: Acute (3) Young primigravida in first trimester: Status: Acute Plan: 19yo @11w0d by LMP VITO 05/28/2025 c/w 626d sono Patient is at 8 weeks and 5 days gestation based on today's ultrasound. However, a previous ultrasound from October 13 at 6 weeks and 6 days is considered more accurate for dating. heartbeat was observed at 174 bpm. No reported nausea for the past 3 days. No bleeding or spotting reported. - Due date set as May 28 by LMP c/w based on 6-week ultrasound - Follow-up appointment scheduled in 4 weeks - Additional blood tests to be performed at next appointment - Prescription for nausea medication provided - Ultrasound images to be scanned into medical record Additional Plan Follow Up: 4 Weeks Office Procedures OB Clinic LOC & Office Proc's Nursing/Assessment Patient Status: Established Patient OB Clinic Nursing Assessment: BP Monitoring, Medication Reconciliation, Update PMH in EMR and Vital Signs OB Clinic Coordination of Care: Consent,records obtained, informed consent, Education Simp Pt/Fam and Staff clarify orders Special Needs: Heart tones Established Patient Charge Established Patient Point Assignment: 105 Established Patient Point Charge: EP Level 3 (80-115) Bedside Ultrasounds US Transabdominal <14 weeks at bedside: Yes
[2024-11-06 10:58] VITALS: BP 113/75; PULSE 83; RESP 16; TEMP 35.7; O2SAT 96; BMI 28.9
== END 2024-11-06 11:32 | disposition home or self-care (01) ==
LOC: HODSOBC 10:50
PROVIDERS: PCP Obstetrics & Gynecology; Referring Provider Obstetrics & Gynecology; Supervising Provider Obstetrics & Gynecology; Visit Provider Obstetrics & Gynecology
DX: O09.891 Supervision of other high risk pregnancies, first trimester (principal); Z3A.11 11 weeks gestation of pregnancy; O21.0 Mild hyperemesis gravidarum
CPT/HCPCS: 76801; 99213; G0463

== ENCOUNTER → 2024-11-26 | Outpatient (CLI) | payer MEDICAID, SELFPAY ==
--- NOTE | 2024-11-26 15:00 | XR_ITS ---
Examination: Complete OB ultrasound, less than 14 weeks, transabdominal Date and time of exam: November 26, 2024 at 1510 hours INDICATIONS: Encounter for supervision of normal Technique: Obstetrical ultrasound images less than 14 weeks performed via transabdominal imaging Findings: A normal shaped single intrauterine gestation is present in the uterus. pole 7.7 cm corresponds to 13 weeks 5 days gestational age Cardiac motion 157 BPM Ultrasonographic survey of visible and placental structures unremarkable. Amniotic fluid volume appears appropriate for this estimated gestational age. Right ovary 2.5 cm arterial flow Left ovary obscured by bowel gas IMPRESSION: Viable intrauterine gestation 13 weeks 5 days.
== END | disposition home or self-care (01) ==
PROVIDERS: PCP Family Medicine; Referring Provider Obstetrics & Gynecology; Visit Provider Obstetrics & Gynecology
DX: Z34.90 Encounter for supervision of normal pregnancy, unspecified, unspecified trimester (principal)
CPT/HCPCS: 76801

== ENCOUNTER 2024-12-04 09:47 | Outpatient (AMB) | payer MEDICAID, SELFPAY ==
[2024-12-04 09:58] VITALS: BP 138/83; PULSE 98; RESP 18; TEMP 36; O2SAT 99; BMI 29.2
--- NOTE | 2024-12-04 09:58 | OBCLNT_ITS ---
Vital Signs 12/04/24 09:58 Height 1.73 m Height Method Stated Weight 87.543 kg Weight Measurement Method Standing Scale BMI 29.2 BP 138/83 H Blood Pressure Source Automatic Cuff Blood Pressure Location Left Upper Arm Position Sitting Respiration 18 Pulse 98 Pulse Source Monitor Temp 96.8 F Temp Source Oral Pulse Oximetry (%) 99 Oxygen Delivery Method Room Air Allergies/Home Meds Allergies & Medications Allergies No Known Allergies Allergy (Verified 12/04/24 09:59) Medication Reconciliation ferrous sulfate 300 mg (60 mg iron)/5 mL oral liquid 300 mg PO QDAY 10/26/24 [History Confirmed 12/04/24] folic acid 400 mcg tablet 0.4 mg PO QDAY 10/26/24 [History Confirmed 12/04/24] doxylamine 10 mg-pyridoxine (vit B6) 10 mg tablet,delayed release (Diclegis) 1 tab PO QDAY 30 days #30 tabs 11/06/24 [Rx Confirmed 12/04/24] ondansetron 4 mg disintegrating tablet 4 mg PO Q6H PRN nausea and vomiting 30 days #120 tabs 11/06/24 [Rx Confirmed 12/04/24] vitamins no.119-iron fumarate 29 mg-folic acid 1 mg tablet 1 tab PO QDAY 90 days #90 tabs 11/06/24 [Rx Confirmed 12/04/24] Intake Visit Data Collection New Patient or Established: Established Patient (seen at [facility] within 3 years) Reason for Visit:: OBC Seen by Clinical Staff ONLY (RN/MA): No 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 Kiln Car Repairer's name/title: DAREN HERBERT / NATUROP[employer]IC [employer]OG[employer] PROVIDER Do You Feel Safe at Home: Yes Authorities Contacted: N/A PCP or OBGYN visit in last 3 months: Yes Date of Last PCP or OBGYN visit: 11/26/24 Hx Now: Yes Are you currently on any form of Control: No Pain Present Currently: No Pain Scale Used: Caceres-Lomas/Numerical Pain scale:: 0 Smoking Status Smoking Status: Never smoker Questionnaires Covid-19 Vaccine Questionnaire Has patient been vacinated for Covid-19 Have you been vacinated for Covid-19: Yes PHQ-9 PHQ-2 Over the last 2 weeks, how often have you been bothered by any of the following problems? 1. Little interest or pleasure in doing things: not at all PHQ-9 3. Trouble falling or staying asleep, or sleeping too much: Not at all 4. Feeling tired or having little energy: Not at all 5. Poor appetite or overeating: Not at all 6. Feeling bad about yourself - or that you are a failure or have let yourself or your family down: Not at all 7. Trouble concentrating on things, such as reading the newspaper or watching television: Not at all 8. Moving or speaking so slowly that other people could have noticed? - Or the opposite - being so fidgety or restless that you have been moving around a lot more than usual: not at all 9. Thoughts that you would be better off or of hurting yourself in some way: Not at all If you checked off any problems, how difficult have these problems made it for you to do your work, take care of things at home, or get along with other people?: not difficult at all Source: Developed by Drs. Miki Leigh, Smitha Nichole, Kenneth Moya and colleagues, with an educational miladis from [employer]. Social History Living Situation History Lives With: Family Housing: House Tobacco History Smoking Status: Never smoker Second Hand Smoke Exposure: No Alcohol History Alcohol Intake: Former Alcohol Intake Frequency: holidays/special occasions only Substance Use History Substance Use: none Domestic Abuse History Do You Feel Safe at Home: Yes Past Medical History Past Medical History Have you ever been diagnosed with any of the following: Neurological Problems Cerebrovascular Accident (CVA): No Transient Ischemic Attacks (TIA): No Dementia: No Alzheimer's Disease: No Parkinson's Disease: No Brain Tumor: No Meningitis: No Seizures: No Epilepsy: No Multiple Sclerosis: No Cerebral Palsy: No Amyotrophic Lateral Sclerosis (ALS/Esperanza Gehrig's): No Guillain-[place] Syndrome: No Spina Bifida: No Paralysis: No Peripheral Neuropathy: No Teixeira's Palsy: No Subdural Hematoma: No Migraine: No Head Trauma: No Spinal Cord Injury: No Traumatic Brain Injury: No Cardiology Problems Myocardial Infarction: No Cardiac Arrhythmia: No Atrial Fibrillation: No Angina: No Heart Murmur: No Coronary Artery Disease: No Atherosclerotic Heart Disease: No Peripheral Vascular Disease: No Hypercholesterolemia: No Aneurysm: No Congestive Heart Failure: No Congenital Heart Disease: No Valvular Heart Disease: No Rheumatic Fever: No Cardiomyopathy: No Edema: No Pericarditis: No Cellulitis: No Hypertension: No Hypotension: No Varicose Veins: No Respiratory Problems Chronic Obstructive Pulmonary Disease (COPD): No Asthma: No Bronchitis: No Emphysema: No Pneumonia: No Pulmonary Fibrosis: No Tuberculosis: No Pulmonary Embolism: No Pulmonary Edema: No Sleep Apnea: No CPAP Dependent: No Respiratory Aspiration: No Dyspnea: No Orthopnea: No Hx Cough: No Cough: No Wheezing: No Chest Deformities: No Smoking: No Smoking Cessation Counseling: No Smoking Exposure: No Tobacco Use: No Clubbing: No Exposure to Respiratory Irritants: No Intubation: No Stomache/Intestinal Problems Liver Cancer: No Hepatitis: No Cirrhosis: No Pancreatic Cancer: No Pancreatitis: No Celiac Disease: No Gall Bladder Disease: No Gastrointestinal Bleed: No Esophageal Varices: No Justin's Esophagus: No Colitis: No Ulcerative Colitis: No Diverticulitis: No Diverticulosis: No Ulcer: No Colorectal Cancer: No Irritable Bowel: No Crohn's Disease: No Obstructive Bowel: No Hiatal Hernia: No Hemorrhoids: No Gastroesophageal Reflux Disease: No Obesity: No Genital/Urinary Problems Renal Disease: No Kidney Stones: No Polycystic Kidney Disease: No Neurogenic Bladder: No Inguinal Hernia: No Dialysis: No Reproductive Problems Breast Cancer: No Endometriosis: No Fibroids: No Genital Herpes: No Gonorrhea: No Pelvic Inflammatory Disease: No Polycystic Ovarian Syndrome: No Previous Pregnancies: No Syphilis: No Uterine Prolapse: No Musculoskeletal Problems Muscular Dystrophy: No Myasthenia Gravis: No Marfan's Syndrome: No Bone Cancer: No Arthritis: No Rheumatoid Arthritis: No Osteoporosis: No Degenerative Disk Disease: No Gout: No Scoliosis: No Carpal Tunnel Syndrome: No Fibromyalgia: No Fractures: No Degenerative Joint Disease: No Osteomyelitis: No Poliovirus: No Head,Eye,Nose,Throat Problems Cataracts: No Glaucoma: No Blind: No Retinal Detachment: No Macular Degeneration: No Chronic Ear Infections: No Deafness: No Eye Prosthesis: No Endocrine Problems Diabetes Mellitus Type 2: Yes (mother, father and grandfather) Hypoglycemia: No Reeder's Syndrome: No Art's Disease: No Hyperthyroidism: No Hypothyroidism: No Thyroid Cancer: No Parathyroid Disease: No Pituitary Disease: No Systemic Lupus Erythematosus: No Syndrome of Inappropriate Antidiuretic Hormone: No Adrenal Disease: No Graves' Disease: No Blood Problems Anemia: Yes (mother) Leukemia: No Hemophilia: No Thalassemia: No Sickle Cell Disease: Yes (mother) Clotting Problems: No Psychologic Problems Schizophrenia: No Recreational Drug Use: No Bipolar Disorder: No Depression: No Anxiety: No Behavior Problems: No Self-Mutilation: No Attention Deficit Disorder: No Attention Deficit Hyperactivity Disorder: No Depression: No Post Traumatic Stress Disorder: No Eating Disorder: No Other Problems Hospitalization: No Down Syndrome: No Autism: No Developmental Delay: No Cosmetic Surgery: No Shingles: No Falls: No Blood Transfusions: No Blood Transfusion Reaction: No Anesthesia Reactions: No Organ Transplant: No Chemotherapy: No Radiation Therapy: No Hyperbaric Therapy: No MRSA: No VRSA: No Vancomycin-Resistant Enterococci: No Human Immunodeficiency Virus (HIV): No Chicken Pox: No Measles: No Mumps: No Rubella (Macedonian Measles): No Pertussis: No Klebsiella Pneumoniae Carbapenemase Producing Bacteria: No Clostridium Difficile: No Hepatitis A: No Hepatitis B: No Hepatitis C: No Communicable Disease: No Cancer: No Cervical Cancer: No Lung Cancer: No Ovarian Cancer: No Surgical History Angioplasty: No Appendectomy: No Bariatric Surgery: No Breast Surgery: No Cancer Surgery: No Carotid Endarterectomy: No Cholecystectomy: No Colectomy: No Colostomy: No Coronary Artery Bypass Graft: No Valve Replacement: No Herniorrhaphy: No Total Hip Replacement: No Total Knee Replacement: No Hysterectomy: No Pacemaker: No Sinus Surgery: No Splenectomy: No TAHBSO-Total Abdominal Hysterectomy: No Thyroidectomy: No Ureter Stent: No History of Present Illness HPI Narrative Genesis Liu presents for an obstetric follow-up visit with ongoing nausea and vomiting during . She reports persistent vomiting despite medication use, indicating that she has to take the medication at all times. The patient also complains of itching, though she denies any vaginal discharge. The patient expresses interest in gender reveal plans, mentioning her desire to travel to [place] in December for this purpose. She prefers to receive the gender information in a sealed envelope rather than via email, as she wants to make a special revelation with her partner. No CTX/LOF/VB Review of Systems Review of Systems Systems Reviewed: All systems reviewed, normal except as documented Visit VITO Calculator Estimated Delivery Date Method Current WG Current Estimate 05/28/25 LMP (Certain) 16w 6d Other Estimates 06/02/25 Ultrasound #1 16w 1d Initial Weight: Not Recorded Date -?-?-?-?-?-?-?-?-?-?-?-?- EGA Weight Edema CTX Effacement BP Fundal ht Pres Dilation Effacement Station Visit Note Alb Glu FHR Mov 10/30/24 -?-?-?-?-?-?-?-?-?-?-?-?- 10w 0d 87.146 kg 115/76 Plea se see notes 12/04/24 -?-?-?-?-?-?-?-?-?-?-?-?- 15w 0d 87.543 kg 138/83 Hype remesis gravidarum. - Continue current antiemetic medication as prescribed - Educate patient that medication can be taken continuously as needed - Follow up on symptom control at next v isit Vaginal pruritus - Prescribe topical cream for symptomati c relief Routine care Assessment: Patient is in early pregnanc y, with a normal heart rate of 160 bpm. A referral for an anatomy scan ultrasound at 20 weeks has been initiated. Plan: - Confirm referral for 20-week anatomy s can ultrasound - Offer non-invasive testing (N IPT) for sex determination - Patient requests results in a sealed envelope for gender reveal purposes - Educate patient on safe travel during early - Schedule follow-up visit. Exam General Limitations: no limitations General Appearance: alert, in no apparent distress, comfortable, cooperative, healthy appearing, well developed and well groomed Chest Chest inspection: Present normal inspection and symmetric chest wall rise Abdominal Abdominal exam: Present soft and normal bowel sounds Psych Psychiatric exam: Present normal affect and normal mood Skin Skin exam: Present warm, dry, intact and normal color Assessment & Plan Diagnosis / Problem List (1) : Status: Acute (2) Young primigravida in first trimester: Status: Acute (3) Hyperemesis gravidarum: Status: Acute Plan Problem-Based Assessment and Plan Genesis Liu, female, presenting with persistent vomiting and vaginal itching. Hyperemesis gravidarum Assessment: Patient reports persistent vomiting despite medication use. This suggests a diagnosis of hyperemesis gravidarum, a severe form of nausea and vomiting in . The patient's symptoms appear to be ongoing and not adequately controlled with current treatment. Plan: - Continue current antiemetic medication as prescribed - Educate patient that medication can be taken continuously as needed - Follow up on symptom control at next visit Vaginal pruritus Assessment: Patient reports vaginal itching without discharge. This could be due to various causes including hormonal changes in , mild vaginal infections, or skin irritation. Plan: - Prescribe topical cream for symptomatic relief - Provide vaginal gel for additional treatment - Reassess symptoms at next visit Routine care Assessment: Patient is in early , with a normal heart rate of 160 bpm. A referral for an anatomy scan ultrasound at 20 weeks has been initiated. Plan: - Confirm referral for 20-week anatomy scan ultrasound - Offer non-invasive testing (NIPT) for sex determination - Patient requests results in a sealed envelope for gender reveal purposes - Educate patient on safe travel during early - Schedule follow-up visit Pt Education Educated the patient on labor signs, including regular contractions, lower back pain, and changes in vaginal discharge. Advised avoiding heavy lifting and getting adequate rest. Instructed to contact the office immediately if any signs occur. Discussed the importance of a balanced diet rich in folic acid, iron, and calcium, and provided a list of recommended and to-avoid foods. Emphasized avoiding high-sugar foods to reduce gestational diabetes risk. Encouraged hydration and frequent, small meals for energy. Office Procedures OB Clinic LOC & Office Proc's Nursing/Assessment Patient Status: Established Patient OB Clinic Nursing Assessment: BP Monitoring, Medication Reconciliation, Update PMH in EMR and Vital Signs OB Clinic Coordination of Care: Consent,records obtained, informed consent, Education Simp Pt/Fam and Staff clarify orders Special Needs: Heart tones Established Patient Charge Established Patient Point Assignment: 105 Established Patient Point Charge: EP Level 3 (80-115)
== END 2024-12-04 10:18 | disposition home or self-care (01) ==
LOC: HODSOBC 09:47
PROVIDERS: PCP Obstetrics & Gynecology; Referring Provider Obstetrics & Gynecology; Supervising Provider Obstetrics & Gynecology; Visit Provider Obstetrics & Gynecology
DX: O21.0 Mild hyperemesis gravidarum (principal); Z3A.15 15 weeks gestation of pregnancy; O26.892 Other specified pregnancy related conditions, second trimester; L29.2 Pruritus vulvae
CPT/HCPCS: 99213; G0463

== ENCOUNTER 2024-12-26 11:35 | Outpatient (AMB) | payer MEDICAID, SELFPAY ==
[2024-12-26 11:53] VITALS: BP 134/79; PULSE 95; RESP 18; TEMP 36.6; BMI 30.2
--- NOTE | 2024-12-26 11:53 | OBCLNT_ITS ---
Vital Signs 12/26/24 11:53 Height 1.73 m Height Method Stated Weight 90.378 kg Weight Measurement Method Standing Scale BMI 30.2 BP 134/79 H Blood Pressure Source Automatic Cuff Blood Pressure Location Right Upper Arm Position Sitting Respiration 18 Pulse 95 Pulse Source Monitor Temp 97.8 F Temp Source Temporal Artery Scan Allergies/Home Meds Allergies & Medications Allergies No Known Allergies Allergy (Verified 12/26/24 11:55) Medication Reconciliation ferrous sulfate 300 mg (60 mg iron)/5 mL oral liquid 300 mg PO QDAY 10/26/24 [History Confirmed 12/26/24] vitamins no.119-iron fumarate 29 mg-folic acid 1 mg tablet 1 tab PO QD AY 90 days #90 tabs 11/06/24 [Rx Confirmed 12/26/24] Intake Visit Data Collection New Patient or Established: Established Patient (seen at [facility] within 3 years) Reason for Visit:: OBC Do You Feel Safe at Home: Yes Authorities Contacted: N/A PCP or OBGYN visit in last 3 months: Yes Pain Present Currently: No Smoking Status Smoking Status: Never smoker Questionnaires Covid-19 Vaccine Questionnaire Has patient been vacinated for Covid-19 Have you been vacinated for Covid-19: No PHQ-9 PHQ-2 Over the last 2 weeks, how often have you been bothered by any of the following problems? 1. Little interest or pleasure in doing things: not at all 2. Feeling down, depressed, or hopeless: not at all Total score: 0 PHQ-9 8. Moving or speaking so slowly that other people could have noticed? - Or the opposite - being so fidgety or restless that you have been moving around a lot more than usual: not at all Source: Developed by Drs. Miki Leigh, Smitha Nichole, Kenneth Moya and colleagues, with an educational miladis from [employer]. Depression screen completed yes Social History Living Situation History Lives With: Family Housing: House Tobacco History Smoking Status: Never smoker Second Hand Smoke Exposure: No Alcohol History Alcohol Intake: Former Alcohol Intake Frequency: holidays/special occasions only Substance Use History Substance Use: none Domestic Abuse History Do You Feel Safe at Home: Yes Past Medical History Past Medical History Have you ever been diagnosed with any of the following: Neurological Problems Cerebrovascular Accident (CVA): No Transient Ischemic Attacks (TIA): No Dementia: No Alzheimer's Disease: No Parkinson's Disease: No Brain Tumor: No Meningitis: No Seizures: No Epilepsy: No Multiple Sclerosis: No Cerebral Palsy: No Amyotrophic Lateral Sclerosis (ALS/Esperanza Gehrig's): No Guillain-[place] Syndrome: No Spina Bifida: No Paralysis: No Peripheral Neuropathy: No Teixeira's Palsy: No Subdural Hematoma: No Migraine: No Head Trauma: No Spinal Cord Injury: No Traumatic Brain Injury: No Cardiology Problems Myocardial Infarction: No Cardiac Arrhythmia: No Atrial Fibrillation: No Angina: No Heart Murmur: No Coronary Artery Disease: No Atherosclerotic Heart Disease: No Peripheral Vascular Disease: No Hypercholesterolemia: No Aneurysm: No Congestive Heart Failure: No Congenital Heart Disease: No Valvular Heart Disease: No Rheumatic Fever: No Cardiomyopathy: No Edema: No Pericarditis: No Cellulitis: No Hypertension: No Hypotension: No Varicose Veins: No Respiratory Problems Chronic Obstructive Pulmonary Disease (COPD): No Asthma: No Bronchitis: No Emphysema: No Pneumonia: No Pulmonary Fibrosis: No Tuberculosis: No Pulmonary Embolism: No Pulmonary Edema: No Sleep Apnea: No CPAP Dependent: No Respiratory Aspiration: No Dyspnea: No Orthopnea: No Hx Cough: No Cough: No Wheezing: No Chest Deformities: No Smoking: No Smoking Cessation Counseling: No Smoking Exposure: No Tobacco Use: No Clubbing: No Exposure to Respiratory Irritants: No Intubation: No Stomache/Intestinal Problems Liver Cancer: No Hepatitis: No Cirrhosis: No Pancreatic Cancer: No Pancreatitis: No Celiac Disease: No Gall Bladder Disease: No Gastrointestinal Bleed: No Esophageal Varices: No Justin's Esophagus: No Colitis: No Ulcerative Colitis: No Diverticulitis: No Diverticulosis: No Ulcer: No Colorectal Cancer: No Irritable Bowel: No Crohn's Disease: No Obstructive Bowel: No Hiatal Hernia: No Hemorrhoids: No Gastroesophageal Reflux Disease: No Obesity: No Genital/Urinary Problems Renal Disease: No Kidney Stones: No Polycystic Kidney Disease: No Neurogenic Bladder: No Inguinal Hernia: No Dialysis: No Reproductive Problems Breast Cancer: No Endometriosis: No Fibroids: No Genital Herpes: No Gonorrhea: No Pelvic Inflammatory Disease: No Polycystic Ovarian Syndrome: No Previous Pregnancies: No Syphilis: No Uterine Prolapse: No Musculoskeletal Problems Muscular Dystrophy: No Myasthenia Gravis: No Marfan's Syndrome: No Bone Cancer: No Arthritis: No Rheumatoid Arthritis: No Osteoporosis: No Degenerative Disk Disease: No Gout: No Scoliosis: No Carpal Tunnel Syndrome: No Fibromyalgia: No Fractures: No Degenerative Joint Disease: No Osteomyelitis: No Poliovirus: No Head,Eye,Nose,Throat Problems Cataracts: No Glaucoma: No Blind: No Retinal Detachment: No Macular Degeneration: No Chronic Ear Infections: No Deafness: No Eye Prosthesis: No Endocrine Problems Diabetes Mellitus Type 2: Yes (mother, father and grandfather) Hypoglycemia: No Ching's Syndrome: No Art's Disease: No Hyperthyroidism: No Hypothyroidism: No Thyroid Cancer: No Parathyroid Disease: No Pituitary Disease: No Systemic Lupus Erythematosus: No Syndrome of Inappropriate Antidiuretic Hormone: No Adrenal Disease: No Graves' Disease: No Blood Problems Anemia: Yes (mother) Leukemia: No Hemophilia: No Thalassemia: No Sickle Cell Disease: Yes (mother) Clotting Problems: No Psychologic Problems Schizophrenia: No Recreational Drug Use: No Bipolar Disorder: No Depression: No Anxiety: No Behavior Problems: No Self-Mutilation: No Attention Deficit Disorder: No Attention Deficit Hyperactivity Disorder: No Depression: No Post Traumatic Stress Disorder: No Eating Disorder: No Other Problems Hospitalization: No Down Syndrome: No Autism: No Developmental Delay: No Cosmetic Surgery: No Shingles: No Falls: No Blood Transfusions: No Blood Transfusion Reaction: No Anesthesia Reactions: No Organ Transplant: No Chemotherapy: No Radiation Therapy: No Hyperbaric Therapy: No MRSA: No VRSA: No Vancomycin-Resistant Enterococci: No Human Immunodeficiency Virus (HIV): No Chicken Pox: No Measles: No Mumps: No Rubella (French Measles): No Pertussis: No Klebsiella Pneumoniae Carbapenemase Producing Bacteria: No Clostridium Difficile: No Hepatitis A: No Hepatitis B: No Hepatitis C: No Communicable Disease: No Cancer: No Cervical Cancer: No Lung Cancer: No Ovarian Cancer: No Surgical History Angioplasty: No Appendectomy: No Bariatric Surgery: No Breast Surgery: No Cancer Surgery: No Carotid Endarterectomy: No Cholecystectomy: No Colectomy: No Colostomy: No Coronary Artery Bypass Graft: No Valve Replacement: No Herniorrhaphy: No Total Hip Replacement: No Total Knee Replacement: No Hysterectomy: No Pacemaker: No Sinus Surgery: No Splenectomy: No TAHBSO-Total Abdominal Hysterectomy: No Thyroidectomy: No Ureter Stent: No History of Present Illness HPI Narrative Genesis Liu is a 19-year-old at 18 weeks and 1 day gestation presenting for a routine visit and review of genetic lab work. The patient reports no specific complaints or concerns during this visit. She is scheduled for an upcoming trip to [place] in December, which may impact her care schedule. No changes in overall health status, new symptoms, or concerns about movement were reported during this encounter. No contractions/ LOF/VB, reports good FM No TORIBIO/VC/RUQ/Epig pain Review of Systems Review of Systems Systems Reviewed: All systems reviewed, normal except as documented Visit OB Visit Log OB Flowsheet Initial Weight: Not Recorded Date -?-?-?-?-?-?-?-?-?-?-?-?- EGA Weight Edema CTX Effacement BP Fundal ht Pres Dilation Effacement Station Visit Note Alb Glu FHR Mov 10/30/24 -?-?-?-?-?-?-?-?-?-?-?-?- 10w 0d 87.146 kg 115/76 Plea se see notes 12/04/24 -?-?-?-?-?-?-?-?-?-?-?-?- 15w 0d 87.543 kg 138/83 Hype remesis gravidarum. - Continue current antiemetic medication as prescribed - Educate patient that medication can be taken continuously as needed - Follow up on symptom control at next v isit Vaginal pruritus - Prescribe topical cream for symptomati c relief Routine care Assessment: Patient is in early pregnanc y, with a normal heart rate of 160 bpm. A referral for an anatomy scan ultrasound at 20 weeks has been initiated. Plan: - Confirm referral for 20-week anatomy s can ultrasound - Offer non-invasive testing (N IPT) for sex determination - Patient requests results in a sealed envelope for gender reveal purposes - Educate patient on safe travel during early - Schedule follow-up visit. 12/26/24 -?-?-?-?-?-?-?-?-?-?-?-?- 18w 1d 90.378 kg 134/79 No C TX/LOF/VB. Reports good FM. No TORIBIO/VS, Epig/RUQ pain. No new symptoms or concerns. Planning up coming trip to [place] in December. FHR: 140 bpm (normal). NIPT: Negative for aneuploidy, male fetu s, 9% fraction. Labs (10/29/2024): Hep B/C, HIV, GC/CT neg ative. Rubella immune. Blood type A+, Ab screen negative. Assessment & Plan: at 18w1d, routine visit with normal labs and reassuring genetic screening. Provide copy of lab and NIPT results Schedule follow-up after patient?s May t ravel Ultrasound to be completed after return from [place] Continue routine care Reviewed signs of labor and when to seek care Counseled on rest, diet, hydration, and avoiding high-sugar foods 155 active VITO Calculator Estimated Delivery Date Method Current WG Current Estimate 05/28/25 LMP (Certain) 18w 2d Other Estimates 06/02/25 Ultrasound #1 17w 4d Exam General General Appearance: alert, in no apparent distress and healthy appearing Head Head exam: atraumatic Neck Neck exam: Present normal inspection and trachea midline Chest Chest inspection: Present normal inspection and symmetric chest wall rise External exam: Present normal external exam; Absent tenderness Neuro Neurological exam: Present oriented X3 Psych Psychiatric exam: Present normal affect and normal mood Assessment & Plan Diagnosis / Problem List (1) : Status: Acute (2) Hyperemesis gravidarum: Status: Acute (3) Young primigravida in first trimester: Status: Acute Plan Problem List , first trimester Assessment - Intrauterine at 18 weeks 1 day gestation - ( 1, Para 0) - NIPT results: negative aneuploidy screening, male fetus, fraction 9% - Initial lab results (10-29-2024): Hepatitis B negative, Hepatitis C negative, RPR non-reactive, Rubella immune, Blood type A positive, Antibody screen negative, HIV negative, Gonorrhea and Chlamydia negative - heart rate 140 bpm, within normal limits - Previous ultrasound reported as normal with dates matching Plan - Schedule follow-up appointment after patient returns from [facility] - Provide patient with test results Educated the patient on labor signs, including regular contractions, lower back pain, and changes in vaginal discharge. Advised avoiding heavy lifting and getting adequate rest. Instructed to contact the office immediately if any signs occur. Discussed the importance of a balanced diet rich in folic acid, iron, and calcium, and provided a list of recommended and to-avoid foods. Emphasized avoiding high-sugar foods to reduce gestational diabetes risk. Encouraged hydration and frequent, small meals for energy.. Office Procedures OB Clinic LOC & Office Proc's Nursing/Assessment Patient Status: Established Patient OB Clinic Nursing Assessment: BP Monitoring, Medication Reconciliation, Update PMH in EMR and Vital Signs OB Clinic Coordination of Care: Complex Care and Chronic Disease 1-5, Education Complex Pt/Fam and Staff clarify orders Special Needs: Heart tones Established Patient Charge Established Patient Point Assignment: 130 Established Patient Point Charge: EP Level 4 (120-155)
== END 2024-12-26 12:14 | disposition home or self-care (01) ==
LOC: HODSOBC 11:35
PROVIDERS: PCP Obstetrics & Gynecology; Referring Provider Obstetrics & Gynecology; Supervising Provider Obstetrics & Gynecology; Visit Provider Obstetrics & Gynecology
DX: O09.612 Supervision of young primigravida, second trimester (principal); O09.892 Supervision of other high risk pregnancies, second trimester; O21.0 Mild hyperemesis gravidarum; Z3A.18 18 weeks gestation of pregnancy
CPT/HCPCS: 99214; G0463

== ENCOUNTER 2025-02-15 09:25 | Outpatient (AMB) | payer MEDICAID, SELFPAY ==
[2025-02-15 09:32] VITALS: BP 126/75; PULSE 91; RESP 17; TEMP 36.3; O2SAT 98; BMI 32.1
--- NOTE | 2025-02-15 09:32 | OBCLNT_ITS ---
Vital Signs 02/15/25 09:32 Height 1.73 m Height Method Measured Weight 96.332 kg Weight Measurement Method Standing Scale BMI 32.1 BP 126/75 Blood Pressure Source Automatic Cuff Blood Pressure Location Right Upper Arm Position Sitting Respiration 17 Pulse 91 Pulse Source Monitor Temp 97.3 F Temp Source Temporal Artery Scan Pulse Oximetry (%) 98 Oxygen Delivery Method Room Air Allergies/Home Meds Allergies & Medications Allergies No Known Allergies Allergy (Verified 03/12/25 11:45) Medication Reconciliation ferrous sulfate 300 mg (60 mg iron)/5 mL oral liquid 300 mg PO QDAY 10/26/24 [History Confirmed 03/10/25] vitamins with calcium no.72-iron 27 mg-folic acid 1 mg tablet ( Vitamins Plus Low Iron) 1 tab PO QDAY 90 days #90 tabs 02/20/25 [Rx Confirmed 03/10/25] famotidine 20 mg tablet (Pepcid) 20 mg PO QDAY #20 tabs 03/12/25 [Rx] Intake Visit Data Collection New Patient or Established: Established Patient (seen at [facility] within 3 years) Reason for Visit:: OBC Seen by Clinical Staff ONLY (RN/MA): No Ladle Cleaner Required: Yes Do You Feel Safe at Home: Yes Authorities Contacted: N/A PCP or OBGYN visit in last 3 months: Yes Date of Last PCP or OBGYN visit: 12/26/24 Hx Now: Yes Are you currently on any form of Control: No Pain Present Currently: No Pain Scale Used: Caceres-Lomas/Numerical Pain scale:: 0 Smoking Status Smoking Status: Never smoker Questionnaires Covid-19 Vaccine Questionnaire Has patient been vacinated for Covid-19 Have you been vacinated for Covid-19: Yes PHQ-9 PHQ-2 Over the last 2 weeks, how often have you been bothered by any of the following problems? 1. Little interest or pleasure in doing things: not at all 2. Feeling down, depressed, or hopeless: not at all Total score: 0 PHQ-9 3. Trouble falling or staying asleep, or sleeping too much: Not at all 4. Feeling tired or having little energy: Not at all 5. Poor appetite or overeating: Not at all 6. Feeling bad about yourself - or that you are a failure or have let yourself or your family down: Not at all 7. Trouble concentrating on things, such as reading the newspaper or watching television: Not at all 8. Moving or speaking so slowly that other people could have noticed? - Or the opposite - being so fidgety or restless that you have been moving around a lot more than usual: not at all 9. Thoughts that you would be better off or of hurting yourself in some way: Not at all Total score: 0 If you checked off any problems, how difficult have these problems made it for you to do your work, take care of things at home, or get along with other people?: not difficult at all Source: Developed by Drs. Miki Leigh, Smitha Nichole, Kenneth Moya and colleagues, with an educational miladis from [employer]. 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543 kg 138/83 Hyperemesis gravidarum. - Continue current antiemetic medication as prescribed - Educate patient that medication can be taken continuously as needed - Follow up on symptom control at next v isit Vaginal pruritus - Prescribe topical cream for symptomati c relief Routine care Assessment: Patient is in early pregnanc y, with a normal heart rate of 160 bpm. A referral for an anatomy scan ultrasound at 20 weeks has been initiated. Plan: - Confirm referral for 20-week anatomy s can ultrasound - Offer non-invasive testing (N IPT) for sex determination - Patient requests results in a sealed envelope for gender reveal purposes - Educate patient on safe travel during early - Schedule follow-up visit. 12/26/24 -?-?-?-?-?-?-?-?-?-?-?-?- 18w 1d 90.378 kg 134/79 155 active No CTX/LOF/VB. Reports good FM. No TORIBIO/VS, Epig/RUQ pain. No new symptoms or concerns. Planning up coming trip to [place] in December. FHR: 140 bpm (normal). NIPT: Negative for aneuploidy, male fetu s, 9% fraction. Labs (10/29/2024): Hep B/C, HIV, GC/CT neg ative. Rubella immune. Blood type A+, Ab screen negative. Assessment & Plan: at 18w1d, routine visit with normal labs and reassuring genetic screening. Provide copy of lab and NIPT results Schedule follow-up after patient?s May t ravel Ultrasound to be completed after return from [place] Continue routine care Reviewed signs of labor and when to seek care Counseled on rest, diet, hydration, and avoiding high-sugar foods 02/15/25 -?-?-?-?-?-?-?-?-?-?-?-?- 25w 3d 96.332 kg 126/75 absent unknown 163 active at 25w3d here for routine care. FHR 163 bpm. Sono at 24w3d with normal anatomy, EFW 670g. Prior scans in [place] normal. Pap and labs from Jul reviewed, normal. Plan: Schedule GTT, call [place] for anatomy scan, return in 4w VITO Calculator Estimated Delivery Date Method Current WG Current Estimate 05/28/25 LMP (Certain) 30w 5d Other Estimates 06/02/25 Ultrasound #1 30w 0d Office Procedures OB Clinic LOC & Office Proc's Nursing/Assessment Patient Status: Established Patient OB Clinic Nursing Assessment: Medication Reconciliation, Update PMH in EMR and V ital Signs OB Clinic Coordination of Care: Complex Care and Chronic Disease 1-5, Consent,records obtained, informed consent, Lab and Imaging orders and Staff clarify orders Special Needs: Heart tones Established Patient Charge Established Patient Point Assignment: 115 Assessment & Plan Diagnosis / Problem List (1) Encounter for other screening for genetic and chromosomal anomalies: Status: Acute (2) Hyperemesis gravidarum: Status: Acute (3) : Status: Acute
== END 2025-02-15 09:47 | disposition home or self-care (01) ==
LOC: HODSOBC 09:25
PROVIDERS: Supervising Provider Obstetrics & Gynecology; Visit Provider Obstetrics & Gynecology

== ENCOUNTER 2025-03-10 00:30 | Observation (INO) | payer MEDICAID, SELFPAY ==
[2025-03-10] VITALS (14 sets, daily range): BP systolic 128–133; BP diastolic 63–73; PULSE 82–95; RESP 18–98; TEMP 37.1; O2SAT 95–98; BMI 37.0
== END 2025-03-10 01:55 | disposition home or self-care (01) ==
PROVIDERS: Admitting Provider Obstetrics & Gynecology; Visit Provider Obstetrics & Gynecology
DX: O26.893 Other specified pregnancy related conditions, third trimester (principal); Z3A.28 28 weeks gestation of pregnancy; M54.6 Pain in thoracic spine
CPT/HCPCS: 59025; 59899

== ENCOUNTER 2025-03-12 11:40 | Emergency (ER) | payer MEDICAID, SELFPAY ==
[2025-03-12 11:42] VITALS: BMI 37.0
--- NOTE | 2025-03-12 11:47 | XR_ITS ---
Examination: Complete OB ultrasound greater than 14 weeks Date and time of exam: March 12, 2025 at 12:16 PM INDICATIONS: Abdominal pain and vomiting blood today Findings: Viable intrauterine single fetus with single amniotic sac presentation breech spine maternal right Cardiac motion 150 BPM Placenta fundal posterior grade 1 Umbilical cord insertion seen Amniotic fluid index 8.7 cm Cervix 3.2 cm closed Ovaries obscured by bowel gas. Composite estimated gestational age based on BPD, head circumference, abdominal circumference, femur length is 29 weeks 4 days Estimated weight 1321 g. Survey of intracranial anatomy, spinal anatomy, abdominal anatomy, four-chamber heart performed with no abnormalities identified. Impression: Viable intrauterine gestation breech presentation.
[2025-03-12 11:54] VITALS: BP 129/81; PULSE 84; RESP 19; TEMP 36.7; O2SAT 96
[2025-03-12] MEDS: ONDANSETRON ODT 4 MG TABRAP PO (11:58)
[2025-03-12 12:18] LABS: Basophils # (Auto) 0.0 Thou/mm3 (0.0-0.2); Basophils % (Auto) 0 % (0-2.5); Eosinophils # (Auto) 0.1 Thou/mm3 (0.0-0.5); Eosinophils % (Auto) 1 % (0-10); Hematocrit 37.8 % (36.0-46.0); Hemoglobin 13.2 g/dL (12.0-16.0); Immature Granulocytes Auto 0.05 Thou/mm3 (0.00-0.00); Lymphocytes # (Auto) 2.0 Thou/mm3 (1.0-4.8); Lymphocytes % (Auto) 20 % (10-50); Mean Corpuscular HGB Conc 34.9 g/dl (31.0-37.0); Mean Corpuscular Hemoglobin 30.1 pg (25.0-35.0); Mean Corpuscular Volume 86 fL (80-100); Monocytes # (Auto) 0.5 Thou/mm3 (0.0-0.8); Monocytes % (Auto) 5 % (0-12); Neutrophils # (Auto) 7.7 Thou/mm3 (1.8-7.7); Neutrophils % (Auto) 75 % (37-80); Nucleated Red Blood Cell # 0.00 Thou/mm3 (0.00-0.00); Nucleated Red Blood Cell % 0 /100 WBC (0); Platelet Count 190 Thou/mm3 (140-440); RDW Standard Deviation 38.6 fL (36.4-46.3); Red Blood Count 4.39 Miln/mm3 (4.00-5.20); White Blood Count 10.3 Thou/mm3 (3.6-11.0)
[2025-03-12 12:22] LABS: Collection Type, Urine Voided
[2025-03-12 12:29] LABS: Alanine Aminotransferase 25 U/L (10-49); Albumin, Serum 3.8 gm/dL (3.5-5.0); Albumin/Globulin Ratio 1.5 (1.2-2.2); Alkaline Phosphatase 89 U/L (46-116); Anion Gap 11 (7-16); Aspartate Amino Transferase 22 U/L (0-34); BUN/Creatinine Ratio 10 Ratio (12-20); Bilirubin,Total 0.5 mg/dL (0.3-1.2); Blood Urea Nitrogen 6 mg/dL (9-23); Calcium 9.0 mg/dL (8.3-10.6); Calcium (Corrected) 9.2 mg/dL (8.5-10.1); Carbon Dioxide 22.4 mMol/L (20.0-31.0); Chloride 107 mMol/L (98-107); Creatinine (Component) 0.6 mg/dL (0.6-1.3); Estimated Creatinine Clearance 167.2 mL/min (>60); Globulin 2.6 gm/dL (2.3-3.5); Glucose 129 mg/dL (74-106); Lipase 49 U/L (12-53); Osmolality,Calculated 279 (275-295); Potassium 3.8 mMol/L (3.4-5.1); Sodium 140 mMol/L (136-145); Total Protein 6.4 gm/dL (5.7-8.2); eGFR > 60 See Note
[2025-03-12 12:36] LABS: Amorphous Crystals,Urine Present (Absent); Bacteria,Urine Rare; Bilirubin,Urine Negative (Negative); Blood,Urine Negative (Negative); Clarity,Urine Turbid (Clear/Hazy); Color,Urine Yellow (Lt Yel-Yel); Glucose, Urine Negative (Negative); Ketones,Urine Negative (Negative); Leukocyte Esterase,Urine Positive (Negative); Nitrite,Urine Negative (Negative); PH,Urine 7.0 (5.0-7.0); Protein,Urine Negative (Neg - Trace); RBC,Urine 4 /hpf (0-3); Specific Gravity,Urine 1.019 (1.001-1.035); Squamous Epithelial Cell,Urine 9 /hpf (0-5); Urobilinogen,Urine Negative mg/dL (0.0-1.0); WBC,Urine 8 /hpf (0-5)
--- NOTE | 2025-03-12 14:50 | PD.EDNV ---
Nausea/Vomit./Diarrhea-RME/HPI General Chief complaint: Nausea/Vomiting/Diarrhea Stated complaint: VOMITED BLOOD THIS AM; SENT BY DR. MÁRQUEZ; PREG 29W Time Seen by Provider: 03/12/25 11:46 Source: patient Arrival date/time: 03/12/25 11:40 Mode of arrival: ambulatory Limitations: no limitations RME / HPI RME / HPI Narrative: 20-year-old female who is A0 is here today after she had a single episode of nausea and vomiting. She is approximately 29 weeks . She has no abdominal pain or pelvic pain. No vaginal discharge. No vaginal bleeding. No dysuria or urinary frequency. No fevers or chills. She has no other acute complaints Related Data Home Medications ?Medication ?Instructions ?Recorded ?Confirmed ferrous sulfate 300 mg (60 mg 300 mg PO QDAY 10/26/24 03/10/25 iron)/5 mL oral liquid Previous Rx's ?Medication ?Instructions ?Recorded vitamin with calcium 1 tab PO QDAY 90 days #90 tabs 02/20/25 no.72-iron 27 mg-folic acid 1 mg tablet ( Vitamins Plus Low Iron) famotidine 20 mg tablet (Pepcid) 20 mg PO QDAY #20 tabs 03/12/25 ondansetron HCl 4 mg tablet 4 mg PO TID PRN nausea and 03/12/25 vomiting 3 days #10 tabs Allergies Allergy/AdvReac Type Severity Reaction Status Date / Time No Known Allergies Allergy Verified 03/12/25 11:45 Review of Systems Review of Systems Systems Reviewed: All systems reviewed, normal except as documented ED Exam General Limitations: Present no limitations General appearance: Present alert and in no apparent distress Head Head exam: Present atraumatic Eye Eye exam: Present normal appearance, PERRL and EOMI ENT ENT exam: Present normal exam, normal oropharynx and mucous membranes moist Neck Neck exam: Present normal inspection, full ROM and trachea midline Chest Chest inspection: Present normal inspection and symmetric chest wall rise Respiratory Respiratory exam: Present normal lung sounds bilaterally Cardiovascular Cardiovascular exam: Present regular rate, normal rhythm and normal heart sounds Abdominal Exam Abdominal exam: Present soft and normal bowel sounds Extremities Exam Extremities exam: Present normal inspection and full ROM Back Exam Back exam: Present normal inspection and full ROM Neurological Exam Neurological exam: Present alert and oriented X3 Psychiatric Psychiatric exam: Present normal affect and normal mood Skin Skin exam: Present warm, dry, intact and normal color Course Quality Measures none Orders Category Date Time Status US OB >= 14 weeks Fetus Stat Exams 03/12/25 11:47 Completed CBC Stat Lab 03/12/25 12:00 Completed CMP [Comprehensive Metabolic Panel] Stat Lab 03/12/25 12:00 Completed Lipase Stat Lab 03/12/25 12:00 Completed UA [Urinalysis] Stat Lab 03/12/25 12:00 Completed Urine Culture Stat Lab 03/12/25 12:00 Received Ondansetron Odt [Zofran Odt] Med 03/12/25 11:47 Discontinued 4 mg PO X1 ONE Vital Signs Vital signs: Vital Signs Temperature 98.1 F 03/12/25 11:54 Pulse Rate 84 03/12/25 11:54 Respiratory Rate 19 03/12/25 11:54 Blood Pressure 129/81 03/12/25 11:54 Pulse Oximetry (%) 96 03/12/25 11:54 Oxygen Delivery Method Room Air 03/12/25 11:54 Nausea/Vomiting/Diarrhea MDM Narrative MDM Narrative:: 20-year-old female who is A0 is here today after she had a single episode of nausea and vomiting. She is approximately 29 weeks . She has no abdominal pain or pelvic pain. No vaginal discharge. No vaginal bleeding. No dysuria or urinary frequency. No fevers or chills. She has no other acute complaints On exam, patient is nontoxic-appearing and in no visible signs of stress. She has had no emesis throughout the ER course. Her work appears essentially unremarkable. She will be discharged with a prescription of Pepcid and Zofran. She states she has a follow-up appoint with her doctor. 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 Return anytime for any worsening changes. Patient data External records reviewed:: None Clinical information provided by:: patient Social determinants that could affect healthcare access:: none Patient has the following chronic illnesses:: n/a How is presenting disease/condition affected by chronic disease/condition?: no chronic disease Evaluation data The following diagnostics were reviewed and interpreted by me:: lab results (No leukocytosis or anemia. No elevated liver enzymes. No metabolic derangement.) and radiology exam(s) (Ultrasound reveals viable uterine fetus with a heart rate of 150 bpm.) Lab and/or radiology exams considered but not ordered:: n/a Interpretation Summary: Workup was unremarkable Medications / Prescriptions Medications / Prescriptions considered but not ordered:: n/a Medication administrations:: Medication Administration History Discontinued Medications Ondansetron HCl (Ondansetron Odt 4 Mg Tabrap) 4 mg PO X1 ONE; Protocol Stop: 03/12/25 11:48 Last Admin: 03/12/25 11:58 Dose: 4 mg Documented By: TENNILLE See above Consultations Consultation(s) initiated? (list below): No Diagnosis Nausea Differential Diagnosis: gastroenteritis and dehydration Most likely diagnosis given after review of the tests above:: Nausea and vomiting Admission Indicated Admission indicated?: not indicated Admission Request Was there a request for admission?: No Disposition Plan Disposition Plan: Discharge Discharge Attestation Discharge Attestation: The patient and all family members were given an opportunity to ask questions and understood the discharge instructions. Discharge instructions specifically effects, indications for sooner follow up or return to the emergency department, and the expected course of current diagnosis. Patient condition: Stable Discharge Plan Plan Patient Disposition: HOME (Self Care) Patient condition on transfer: Stable Prescriptions/Referrals Prescriptions/Med Rec: New famotidine [Pepcid] 20 mg tablet 20 mg PO QDAY Qty: 20 0RF ondansetron HCl 4 mg tablet 4 mg PO TID PRN (Reason: nausea and vomiting) 3 Days Qty: 10 0RF No Action ferrous sulfate 300 mg (60 mg iron)/5 mL liquid 300 mg PO QDAY Vitamin Plus Low Iron 27 mg iron- 1 mg tablet 1 tab PO QDAY 90 Days Qty: 90 6RF Referrals: No Primary/Family,Physician [Primary Care Provider] - In 1 week Problem List Clinical Impression: Acid reflux Patient/Caregiver Discharge Instructions Education Materials: ED GERD (Adult) Additional Instructions: - Use the provided medications as prescribed. - Follow-up with your primary doctor within the next 1 to 2 weeks. - Please return to the emergency room at anytime for any worsening or emergent changes. Print Language: Croatian Stand Alone Forms: [facility] Award Info., Patient Portal Info Letter
== END 2025-03-12 15:01 | disposition home or self-care (01) ==
PROVIDERS: Physician Assistant Medical; Emergency Provider Emergency Medicine
DX: O99.613 Diseases of the digestive system complicating pregnancy, third trimester (principal); K21.9 Gastro-esophageal reflux disease without esophagitis; Z3A.29 29 weeks gestation of pregnancy
CPT/HCPCS: 36415; 76805; 80053; 81001; 83690; 85025; 87086; 99284; Q0162

== ENCOUNTER 2025-03-26 08:44 | Outpatient (AMB) | payer MEDICAID, SELFPAY ==
[2025-03-26 08:56] VITALS: BP 115/103; PULSE 104; RESP 17; TEMP 35.9; O2SAT 97; BMI 37.4
--- NOTE | 2025-03-26 08:56 | OBCLNT_ITS ---
Vital Signs 03/26/25 08:56 Height 1.63 m Height Method Stated Weight 99.45 kg Weight Measurement Method Standing Scale BMI 37.4 BP 115/103 H Blood Pressure Source Automatic Cuff Blood Pressure Location Right Upper Arm Position Sitting Respiration 17 Pulse 104 H Pulse Source Monitor Temp 96.7 F L Temp Source Temporal Artery Scan Pulse Oximetry (%) 97 Oxygen Delivery Method Room Air Allergies/Home Meds Allergies & Medications Allergies No Known Allergies Allergy (Verified 03/26/25 08:59) Medication Reconciliation ferrous sulfate 300 mg (60 mg iron)/5 mL oral liquid 300 mg PO QDAY 10/26/24 [History Confirmed 03/26/25] vitamins with calcium no.72-iron 27 mg-folic acid 1 mg tablet ( Vitamins Plus Low Iron) 1 tab PO QDAY 90 days #90 tabs 02/20/25 [Rx Confirmed 03/26/25] blood sugar diagnostic (Blood Glucose Test strips) #100 ea 03/26/25 [Rx] blood-glucose meter #1 ea 03/26/25 [Rx] fluconazole 150 mg tablet 150 mg PO Q3D 2 doses #2 tabs 03/26/25 [Rx] lancets 21 gauge #100 ea 03/26/25 [Rx] omeprazole 40 mg capsule,delayed release 40 mg PO QDAY 30 days #30 caps 03/26/25 [Rx] Intake Visit Data Collection New Patient or Established: Established Patient (seen at [facility] within 3 years) Reason for Visit:: OBC Seen by Clinical Staff ONLY (RN/MA): No 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 Flea Market Seller's name/title: ANSELMO SHARMA Do You Feel Safe at Home: Yes Authorities Contacted: N/A PCP or OBGYN visit in last 3 months: Yes Date of Last PCP or OBGYN visit: 03/12/25 Hx Now: Yes Are you currently on any form of Control: No Pain Present Currently: No Pain Scale Used: Caceres-Lomas/Numerical Pain scale:: 0 Smoking Status Smoking Status: Never smoker Questionnaires Covid-19 Vaccine Questionnaire Has patient been vacinated for Covid-19 Have you been vacinated for Covid-19: No PHQ-9 PHQ-2 Over the last 2 weeks, how often have you been bothered by any of the following problems? 1. Little interest or pleasure in doing things: not at all 2. Feeling down, depressed, or hopeless: not at all Total score: 0 PHQ-9 3. Trouble falling or staying asleep, or sleeping too much: Not at all 4. Feeling tired or having little energy: Not at all 5. Poor appetite or overeating: Not at all 6. Feeling bad about yourself - or that you are a failure or have let yourself or your family down: Not at all 7. Trouble concentrating on things, such as reading the newspaper or watching television: Not at all 8. Moving or speaking so slowly that other people could have noticed? - Or the opposite - being so fidgety or restless that you have been moving around a lot more than usual: not at all 9. Thoughts that you would be better off or of hurting yourself in some way: Not at all Total score: 0 If you checked off any problems, how difficult have these problems made it for you to do your work, take care of things at home, or get along with other people?: not difficult at all Source: Developed by Drs. Miki Leigh, Smitha Nichole, Kenneth Moya and colleagues, with an educational miladis from [employer] 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-?-?- 15w 0d 87.543 kg 138/83 Hyperemesis gravidarum. - Continue current antiemetic medication as prescribed - Educate patient that medication can be taken continuously as needed - Follow up on symptom control at next v isit Vaginal pruritus - Prescribe topical cream for symptomati c relief Routine care Assessment: Patient is in early pregnanc y, with a normal heart rate of 160 bpm. A referral for an anatomy scan ultrasound at 20 weeks has been initiated. Plan: - Confirm referral for 20-week anatomy s can ultrasound - Offer non-invasive testing (N IPT) for sex determination - Patient requests results in a sealed envelope for gender reveal purposes - Educate patient on safe travel during early - Schedule follow-up visit. 12/26/24 -?-?-?-?-?-?-?--?-?-?-?-?- 18w 1d 90.378 kg 134/79 155 active No CTX/LOF/VB. Reports good FM. No TORIBIO/VS, Epig/RUQ pain. No new symptoms or concerns. Planning up coming trip to [place] in December. FHR: 140 bpm (normal). NIPT: Negative for aneuploidy, male fetu s, 9% fraction. Labs (10/29/2024): Hep B/C, HIV, GC/CT neg ative. Rubella immune. Blood type A+, Ab screen negative. Assessment & Plan: at 18w1d, routine visit with normal labs and reassuring genetic screening. Provide copy of lab and NIPT results Schedule follow-up after patient?s May t ravel Ultrasound to be completed after return from [place] Continue routine care Reviewed signs of labor and when to seek care Counseled on rest, diet, hydration, and avoiding high-sugar foods 02/15/25 -?-?-?-?-?-?-?-?-?-?-?-?- 25w 3d 96.332 kg 126/75 absent unknown 163 active at 25w3d here for routine care. FHR 163 bpm. Sono at 24w3d with normal anatomy, EFW 670g. Prior scans in [place] normal. Pap and labs from [facility] reviewed, normal. Plan: Schedule GTT, call Cheryl for anatomy scan, return in 4w 03/26/25 -?-?-?-?-?-?-?-?-?-?-?-?- 31w 0d 99.45 kg 115/103 occasional unknown 155 active Gestational diabetes mellitus diagnosed at 31 weeks gestation based on a 1-hour glucose tolerance test result of 186 mg/dL. Patient reports recent fasting blood glucose of 80 mg/dL and 2-hour postprandial glucose of 104 mg/dL. Symptomatic gastroesophageal reflux disease (GERD) reported, with previous treatment deemed insufficient. Suspected vulvovaginal candidiasis, likely secondary to elevated blood glucose levels, with patient reporting vaginal discharge upon digital examination. Mild scoliosis noted on previous imaging studies - Start treatment for gestational diabetes immediately - Provide glucometer prescription - Patient to check blood glucose fasting and 1 hour after eating for 7 days - Prescribe stronger medication for acid reflux - Treat for yeast infection - Prescribe medication for yeast infecti on - Complete disability forms after patien t checks eligibility at [employer] office - Follow up in one week for glucose chris miles - Perform additional labs due to elevate d glucose - Advise patient to come to hospital if decreased movement persists after drinking something sweet [employer] Calculator Estimated Delivery Date Method Current WG Current Estimate 05/28/25 LMP (Certain) 31w 0d Other Estimates 06/02/25 Ultrasound #1 30w 2d Notes Visit Date: 03/26/25 Last Updated by: Quoc Cristobal MD Problem List - Gestational diabetes mellitus - Gastroesophageal reflux disease - Vulvovaginal candidiasis - Scoliosis Office Procedures OB Clinic LOC & Office Proc's Nursing/Assessment Patient Status: Established Patient OB Clinic Nursing Assessment: Medication Reconciliation, Update PMH in EMR and Vital Signs OB Clinic Coordination of Care: Complex Care and Chronic Disease 1-5, Consent,records obtained, informed consent, Education Simp Pt/Fam and Staff clarify orders Special Needs: Heart tones Established Patient Charge Established Patient Point Assignment: 115 Established Patient Point Charge: EP Level 3 (80-115) Assessment & Plan Diagnosis / Problem List (1) Gestational diabetes: Status: Acute (2) Aminah vaginitis: Status: Acute (3) GERD without esophagitis: Status: Acute
== END 2025-03-26 09:29 | disposition home or self-care (01) ==
LOC: HODSOBC 08:44
PROVIDERS: Supervising Provider Obstetrics & Gynecology; Visit Provider Obstetrics & Gynecology
DX: O09.893 Supervision of other high risk pregnancies, third trimester (principal); O24.419 Gestational diabetes mellitus in pregnancy, unspecified control; O98.813 Other maternal infectious and parasitic diseases complicating pregnancy, third trimester; B37.31 Acute candidiasis of vulva and vagina; O99.613 Diseases of the digestive system complicating pregnancy, third trimester; K21.9 Gastro-esophageal reflux disease without esophagitis; O99.891 Other specified diseases and conditions complicating pregnancy; M41.9 Scoliosis, unspecified; Z3A.31 31 weeks gestation of pregnancy
CPT/HCPCS: 99213; G0463

== ENCOUNTER 2025-04-02 11:15 | Outpatient (AMB) | payer MEDICAID, SELFPAY ==
[2025-04-02 11:32] VITALS: BP 121/79; PULSE 101; RESP 17; TEMP 36.4; O2SAT 97; BMI 37.3
--- NOTE | 2025-04-02 11:32 | OBCLNT_ITS ---
Vital Signs 04/02/25 11:32 Height 1.63 m Height Method Stated Weight 98.997 kg Weight Measurement Method Standing Scale BMI 37.3 BP 121/79 Blood Pressure Source Automatic Cuff Blood Pressure Location Right Upper Arm Position Sitting Respiration 17 Pulse 101 H Pulse Source Monitor Temp 97.6 F Temp Source Temporal Artery Scan Pulse Oximetry (%) 97 Oxygen Delivery Method Room Air Allergies/Home Meds Allergies & Medications Allergies No Known Allergies Allergy (Verified 06/07/25 22:46) Medication Reconciliation No Known Home Medications 06/08/25 [History Confirmed 06/08/25] Intake Visit Data Collection New Patient or Established: Established Patient (seen at [facility] within 3 years) Reason for Visit:: OBC 32W Seen by Clinical Staff ONLY (RN/MA): No Discount Clerk Required: Yes Do You Feel Safe at Home: Yes Authorities Contacted: N/A PCP or OBGYN visit in last 3 months: Yes Date of Last PCP or OBGYN visit: 03/26/25 Hx Now: Yes Are you currently on any form of Control: No Pain Present Currently: No Pain Scale Used: Caceres-Lomas/Numerical Pain scale:: 0 Smoking Status Smoking Status: Never smoker Questionnaires Covid-19 Vaccine Questionnaire Has patient been vacinated for Covid-19 Have you been vacinated for Covid-19: No PHQ-9 PHQ-2 Over the last 2 weeks, how often have you been bothered by any of the following problems? 1. Little interest or pleasure in doing things: not at all 2. Feeling down, depressed, or hopeless: not at all Total score: 0 PHQ-9 3. Trouble falling or staying asleep, or sleeping too much: Not at all 4. Feeling tired or having little energy: Not at all 5. Poor appetite or overeating: Not at all 6. Feeling bad about yourself - or that you are a failure or have let yourself or your family down: Not at all 7. Trouble concentrating on things, such as reading the newspaper or watching television: Not at all 8. Moving or speaking so slowly that other people could have noticed? - Or the opposite - being so fidgety or restless that you have been moving around a lot more than usual: not at all 9. Thoughts that you would be better off or of hurting yourself in some wa y: Not at all Total score: 0 If you checked off any problems, how difficult have these problems made it for you to do your work, take care of things at home, or get along with other people?: not difficult at all Source: Developed by Drs. Miki Leigh, Smitha Nichole, Kenneth Moya and colleagues, with an educational miladis from [employer]. 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543 kg 138/83 Hyperemesis gravidarum. - Continue current antiemetic medication as prescribed - Educate patient that medication can be taken continuously as needed - Follow up on symptom control at next v isit Vaginal pruritus - Prescribe topical cream for symptomati c relief Routine care Assessment: Patient is in early pregnanc y, with a normal heart rate of 160 bpm. A referral for an anatomy scan ultrasound at 20 weeks has been initiated. Plan: - Confirm referral for 20-week anatomy s can ultrasound - Offer non-invasive testing (N IPT) for sex determination - Patient requests results in a sealed envelope for gender reveal purposes - Educate patient on safe travel during early - Schedule follow-up visit. 12/26/24 -?-?-?-?-?-?-?-?-?-?-?-?- 18w 1d 90.378 kg 134/79 155 active No CTX/LOF/VB. Reports good FM. No TORIBIO/VS, Epig/RUQ pain. No new symptoms or concerns. Planning up coming trip to [place] in December. FHR: 140 bpm (normal). NIPT: Negative for aneuploidy, male fetu s, 9% fraction. Labs (10/29/2024): Hep B/C, HIV, GC/CT neg ative. Rubella immune. Blood type A+, Ab screen negative. Assessment & Plan: at 18w1d, routine visit with normal labs and reassuring genetic screening. Provide copy of lab and NIPT results Schedule follow-up after patient?s May t ravel Ultrasound to be completed after return from [place] Continue routine care Reviewed signs of labor and when to seek care Counseled on rest, diet, hydration, and avoiding high-sugar foods 02/15/25 -?-?-?-?-?-?-?-?-?-?-?-?- 25w 3d 96.332 kg 126/75 absent unknown 163 active at 25w3d here for routine care. FHR 163 bpm. Sono at 24w3d with normal anatomy, EFW 670g. Prior scans in [place] normal. Pap and labs from [facility] reviewed, normal. Plan: Schedule GTT, call [place] for anatomy scan, return in 4w 03/26/25 -?-?-?-?-?-?-?-?-?-?-?-?- 31w 0d 99.45 kg 115/103 occasional unknown 155 active Gestational diabetes mellitus diagnosed at 31 weeks gestation based on a 1-hour glucose tolerance test result of 186 mg/dL. Patient reports recent fasting blood glucose of 80 mg/dL and 2-hour postprandial glucose of 104 mg/dL. Symptomatic gastroesophageal reflux disease (GERD) reported, with previous treatment deemed insufficient. Suspected vulvovaginal candidiasis, likely secondary to elevated blood glucose levels, with patient reporting vaginal discharge upon digital examination. Mild scoliosis noted on previous imaging studies - Start treatment for gestational diabetes immediately - Provide glucometer prescription - Patient to check blood glucose fasting and 1 hour after eating for 7 days - Prescribe stronger medication for acid reflux - Treat for yeast infection - Prescribe medication for yeast infecti on - Complete disability forms after patien t checks eligibility at [employer] office - Follow up in one week for glucose chris miles - Perform additional labs due to elevate d glucose - Advise patient to come to hospital if decreased movement persists after drinking something sweet 04/02/25 -?-?-?-?-?-?-?-?-?-?-?-?- 32w 0d 98.997 kg 121/79 occasional unknown 32 160 active - Recently diagnosed with gestational diabetes mellitus (GDM) - Given glucometer for blood glucose m onitoring - Patient reports adherence to prescri bed diet for blood sugar control - Fasting glucose readings reported as 89, 75, 86, 88 mg/dL (all below 100 mg/dL) - One post-prandial reading of 125 mg/ dL after consuming milk and cookies - Weight loss of 1 pound noted since las t visit - Patient reports reducing intake of t ortillas, milk, and sweet foods - Sleep disturbance reported - Difficulty sleeping on one side due to discomfort - Musculoskeletal discomfort - Experiences pubic pain - Reports sensation of bones grinding - History of acid reflux, treated with o meprazole - Recent treatment for vaginal yeast infection Plan - Follow up in 2 weeks - Continue current gestational diabetes management with diet and glucose monitoring - Apply hot packs for spinal discomfort - Provide patient with contact number jas Luna (presumably for further care coordination) - Review and process disability forms 04/16/25 -?-?-?-?-?-?-?-?-?-?-?-?- 34w 0d 100.471 kg 131/80 occasional unknown 35 165 active - She reports ongoing bone pain during : - Aggravated by sitting on hard surfac es - No specific treatment available - Patient experienced hiccups: - Resolved on its own - Advised that it may be related to de hydration - Blood sugar management: - Patient is monitoring blood glucose levels - One elevated reading noted (158 mg/d L) - Overall, blood sugar numbers reported as good - Continue monitoring blood sugar levels - Drink plenty of water to prevent dehyd ration - Use cushioned seating to alleviate bon e pain during - Return to hospital if hiccups pe rsist - Follow up for next visit (lennox ing not specified) 05/01/25 -?-?-?-?-?-?-?-?-?-?-?-?- 36w 1d 101.661 kg 124/77 occasional unknown 16 3 active Patient reports experiencing pelvic pressure and pain, which may be indicative of early labor contractions. No reported vaginal leaking or bleeding, but patient notes white vaginal discharge. heart rate auscultated at 163 bpm, which is within normal limits. Patient exhibits signs of fluid retention, including facial and hand edema. Back pain also reported. All symptoms appear consistent with normal third-trimester progression. Plan - GBS swab performed - Return to hospital if experiencing con tractions - Follow up appointment scheduled in one week - For back pain: recommend warm showers and sleeping on side 05/14/25 -?-?-?-?-?-?-?-?-?-?-?-?- 38w 0d 100.357 kg 119/76 occasional unknown 39 155 active Ankita Rudolph, , presents for routine visit at 36 weeks and 1 day gestation. No contractions, LOF, VB and reports goo d FM. Denies TORIBIO, VC, and epigastric pain. Plan - Complete full anemia panel today - Start iron supplementation - Consider IV iron if levels are very lo w - Conduct lab work at [facility] on omorrow morning (closes at 3 PM) - Follow up in one week 05/21/25 -?-?-?-?-?-?-?-?-?-?-?-?- 39w 0d 102.285 kg 126/81 occasional cephalic 41 145 active - She experienced bleeding 2 days ago and was evaluated at [facility]. - Was told there was no internal bleed ing and baby was fine. - Has had discharge since the bleeding episode, which she describes as normal. - Denies any further bleeding since th e initial episode. - She reports having frequent headaches and cramping. - Headaches have been bothersome. - Cramping is ongoing. - She describes feeling very uncomfortab le and states she is not comfortable anymore at this stage of . - She had monitoring today with normal heart rate of 14 5 bpm. Plan - Induction of labor moved to tomorrow ( 05/22/2025) - Patient to call Labor and Delivery at 8am tomorrow - No further appointments scheduled [facility] Calculator Estimated Delivery Date Method Current WG Current Estimate 05/28/25 LMP (Certain) 42w 0d Other Estimates 06/02/25 Ultrasound #1 41w 2d Notes Visit Date: 04/02/25 Last Updated by: Quoc Cristobal MD - Date: 03/27/2025 - CMP: - Glucose: 84 mg/dL - BUN: 6 mg/dL - Creatinine: 0.57 mg/dL - Sodium: 136 mEq/L - Potassium: 4.2 mEq/L - Chloride: 103 mEq/L - Carbon dioxide: 21 mEq/L - Calcium: 8.8 mg/dL - Total protein: 5.9 g/dL - Albumin: 3.4 g/dL - Globulin: 2.5 g/dL - Bilirubin: 0.3 mg/dL - Alkaline phosphatase: 102 U/L - AST: 22 U/L - ALT: 27 U/L - CBC: - Hemoglobin: 13.0 g/dL - Hemoglobin A1c: 5.5% - DSH: 1.5 - Free T4: 0.81 - Uric acid: 3.1 mg/dL - LDH: 162 U/L Visit Date: 03/26/25 Last Updated by: Quoc Cristobal MD Problem List - Gestational diabetes mellitus - Gastroesophageal reflux disease - Vulvovaginal candidiasis - Scoliosis Assessment & Plan Diagnosis / Problem List (1) Pancreatitis: Status: Acute Qualifiers: Chronicity: acute Pancreatitis type: unspecified pancreatitis type Acute pancreatitis complication: no infection or necrosis Qualified Code(s): K85.90 - Acute pancreatitis without necrosis or infection, unspecified (2) Arrest of dilation, delivered, current hospitalization: Status: Acute (3) delivery delivered: Status: Acute Plan Problem List - Gestational diabetes mellitus - Gastroesophageal reflux disease - Vulvovaginal candidiasis - , 33 weeks gestation - Pubic symphysis pain Assessment 33-week patient with newly diagnosed gestational diabetes mellitus (GDM) demonstrating good glycemic control based on reported blood glucose readings (fasting below 100 mg/dL, postprandial below 125 mg/dL). Recent laboratory results show normal glucose (84 mg/dL), HbA1c (5.5%), and other metabolic parameters within normal limits. Patient reports acid reflux, treated with omeprazole, and a recently treated vaginal yeast infection. Patient expe riencing -related discomforts including difficulty sleeping on one side due to nerve pressure, and pubic pain attributed to normal changes. Slight weight loss of 1 pound noted, likely due to dietary modifications for GDM management. Plan - Follow up in 2 weeks - Continue current gestational diabetes management with diet and glucose monitoring - Apply hot packs for spinal discomfort - Provide patient with contact number for [place] (presumably for further care coordination) - Review and process disability forms 1. Progress Reviewed gestational age, growth, and heart rate. Planned frequent visits (every 2 weeks until 36 weeks, then weekly). 2. Instructed patient to monitor movements and report decreases immediately. 3. Testing Counseled on routine third-trimester labs per guidelines. Discussed potential need for ultrasound or monitoring based on risk factors. 4. Preeclampsia Precaution Educated on preeclampsia signs: severe headache, vision changes, right upper quadrant pain, sudden swelling. Advised urgent reporting of symptoms and discussed blood pressure monitoring if high risk. 5. Labor Precautions Reviewed labor signs: regular contractions, pelvic pressure, back pain, bleeding, or fluid leakage. Instructed to seek immediate care for these symptoms. 6. Lifestyle and Delivery Preparation Reinforced vitamins, nutrition, and safe activity. Discussed plan, pain management, and . Advised on labor preparation (e.g., hospital bag) and expectations. 7. Psychosocial Support Assessed emotional well-being and offered resources for mental health or parenting support.
== END 2025-04-02 11:42 | disposition home or self-care (01) ==
LOC: HODSOBC 11:15
PROVIDERS: Supervising Provider Obstetrics & Gynecology; Visit Provider Obstetrics & Gynecology
DX: O09.893 Supervision of other high risk pregnancies, third trimester (principal); O24.410 Gestational diabetes mellitus in pregnancy, diet controlled; K21.9 Gastro-esophageal reflux disease without esophagitis; O99.613 Diseases of the digestive system complicating pregnancy, third trimester; Z3A.32 32 weeks gestation of pregnancy
CPT/HCPCS: 99213; G0463

== ENCOUNTER 2025-04-16 09:57 | Outpatient (AMB) | payer MEDICAID, SELFPAY ==
[2025-04-16 10:11] VITALS: BP 131/80; PULSE 93; RESP 18; TEMP 36.2; O2SAT 97; BMI 37.8
--- NOTE | 2025-04-16 10:11 | OBCLNT_ITS ---
Vital Signs 04/16/25 10:11 Height 1.63 m Height Method Stated Weight 100.471 kg Weight Measurement Method Standing Scale BMI 37.8 BP 131/80 H Blood Pressure Source Automatic Cuff Blood Pressure Location Left Upper Arm Position Sitting Respiration 18 Pulse 93 Pulse Source Monitor Temp 97.1 F Temp Source Oral Pulse Oximetry (%) 97 Oxygen Delivery Method Room Air Allergies/Home Meds Allergies & Medications Allergies No Known Allergies Allergy (Verified 05/03/25 23:08) Medication Reconciliation ferrous sulfate 300 mg (60 mg iron)/5 mL oral liquid 300 mg PO QDAY 10/26/24 [History Confirmed 05/03/25] Held on 05/03/25. Instructions: patient states she is not taking medication anymore vitamins with calcium no.72-iron 27 mg-folic acid 1 mg tablet ( Vitamins Plus Low Iron) 1 tab PO QDAY 90 days #90 tabs 02/20/25 [Rx Confirmed 05/03/25] blood sugar diagnostic (Blood Glucose Test strips) #100 ea 03/26/25 [Rx Confirmed 05/01/25] blood-glucose meter #1 ea 03/26/25 [Rx Confirmed 05/01/25] fluconazole 150 mg tablet 150 mg PO Q3D 2 doses #2 tabs 03/26/25 [Rx Confirmed 05/01/25] lancets 21 gauge #100 ea 03/26/25 [Rx Confirmed 05/01/25] omeprazole 40 mg capsule,delayed release 40 mg PO QDAY 30 days #30 caps 03/26/25 [Rx Confirmed 05/03/25] Intake Visit Data Collection New Patient or Established: Established Patient (seen at [facility] within 3 years) Reason for Visit:: CARE Seen by Clinical Staff ONLY (RN/MA): No Safety Inspector Required: Yes Safety Inspector's name/title: DAREN HERBERT Do You Feel Safe at Home: Yes Authorities Contacted: N/A PCP or OBGYN visit in last 3 months: Yes Hx Now: Yes Are you currently on any form of Control: No Pain Present Currently: Yes Pain Location: Back Pain Scale Used: Caceres-Lomas/Numerical Pain scale:: 4 Smoking Status Smoking Status: Never smoker Questionnaires Covid-19 Vaccine Questionnaire Has patient been vacinated for Covid-19 Have you been vacinated for Covid-19: Yes PHQ-9 PHQ-2 Over the last 2 weeks, how often have you been bothered by any of the following problems? 1. Little interest or pleasure in doing things: not at all 2. Feeling down, depressed, or hopeless: not at all Total score: 0 PHQ-9 3. Trouble falling or staying asleep, or sleeping too much: Not at all 4. Feeling tired or having little energy: Not at all 5. Poor appetite or overeating: Not at all 6. Feeling bad about yourself - or that you are a failure or have let yourself or your family down: Not at all 7. Trouble concentrating on things, such as reading the newspaper or watching television: Not at all 8. Moving or speaking so slowly that other people could have noticed? - Or the opposite - being so fidgety or restless that you have been moving around a lot more than usual: not at all 9. Thoughts that you would be better off or of hurting yourself in some way: Not at all Total score: 0 Source: Developed by Drs. Miki Leigh, Smitha Nichole, Kenneth Moya and colleagues, with an educational miladis from [employer]. 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543 kg 138/83 Hyperemesis gravidarum. - Continue current antiemetic medication as prescribed - Educate patient that medication can be taken continuously as needed - Follow up on symptom control at next v isit Vaginal pruritus - Prescribe topical cream for symptomati c relief Routine care Assessment: Patient is in early pregnanc y, with a normal heart rate of 160 bpm. A referral for an anatomy scan ultrasound at 20 weeks has been initiated. Plan: - Confirm referral for 20-week anatomy s can ultrasound - Offer non-invasive testing (N IPT) for sex determination - Patient requests results in a sealed envelope for gender reveal purposes - Educate patient on safe travel during early - Schedule follow-up visit. 12/26/24 -?-?-?-?-?-?-?-?-?-?-?-?- 18w 1d 90.378 kg 134/79 155 active No CTX/LOF/VB. Reports good FM. No TORIBIO/VS, Epig/RUQ pain. No new symptoms or concerns. Planning up coming trip to [place] in December. FHR: 140 bpm (normal). NIPT: Negative for aneuploidy, male fetu s, 9% fraction. Labs (10/29/2024): Hep B/C, HIV, GC/CT neg ative. Rubella immune. Blood type A+, Ab screen negative. Assessment & Plan: at 18w1d, routine visit with normal labs and reassuring genetic screening. Provide copy of lab and NIPT results Schedule follow-up after patient?s May t alli Ultrasound to be completed after return from [place] Continue routine care Reviewed signs of labor and when to seek care Counseled on rest, diet, hydration, and avoiding high-sugar foods 02/15/25 -?-?-?-?-?-?-?-?-?-?-?-?- 25w 3d 96.332 kg 126/75 absent unknown 163 active at 25w3d here for routine care. FHR 163 bpm. Sono at 24w3d with normal anatomy, EFW 670g. Prior scans in [place] normal. Pap and labs from [facility] reviewed, normal. Plan: Schedule GTT, call [facility] for anatomy scan, return in 4w 03/26/25 -?-?-?-?-?-?-?-?-?-?-?-?- 31w 0d 99.45 kg 115/103 occasional unknown 155 active Gestational diabetes mellitus diagnosed at 31 weeks gestation based on a 1-hour glucose tolerance test result of 186 mg/dL. Patient reports recent fasting blood glucose of 80 mg/dL and 2-hour postprandial glucose of 104 mg/dL. Symptomatic gastroesophageal reflux disease (GERD) reported, with previous treatment deemed insufficient. Suspected vulvovaginal candidiasis, likely secondary to elevated blood glucose levels, with patient reporting vaginal discharge upon digital examination. Mild scoliosis noted on previous imaging studies - Start treatment for gestational diabetes immediately - Provide glucometer prescription - Patient to check blood glucose fasting and 1 hour after eating for 7 days - Prescribe stronger medication for acid reflux - Treat for yeast infection - Prescribe medication for yeast infecti on - Complete disability forms after patien t checks eligibility at [employer] office - Follow up in one week for glucose chris miles - Perform additional labs due to elevate d glucose - Advise patient to come to hospital if decreased movement persists after drinking something sweet 04/16/25 -?-?-?-?-?-?-?-?-?-?-?-?- 34w 0d 100.471 kg 131/80 occasional unknown 35 165 active - She reports ongoing bone pain during : - Aggravated by sitting on hard surfac es - No specific treatment available - Patient experienced hiccups: - Resolved on its own - Advised that it may be related to de hydration - Blood sugar management: - Patient is monitoring blood glucose levels - One elevated reading noted (158 mg/d L) - Overall, blood sugar numbers reported as good - Continue monitoring blood sugar levels - Drink plenty of water to prevent dehyd ration - Use cushioned seating to alleviate bon e pain during - Return to hospital if hiccups pe rsist - Follow up for next visit (lennox ing not specified) 05/01/25 -?-?-?-?-?-?-?-?-?-?-?-?- 36w 1d 101.661 kg 124/77 occasional unknown 16 3 active Patient reports experiencing pelvic pressure and pain, which may be indicative of early labor contractions. No reported vaginal leaking or bleeding, but patient notes white vaginal discharge. heart rate auscultated at 163 bpm, which is within normal limits. Patient exhibits signs of fluid retention, including facial and hand edema. Back pain also reported. All symptoms appear consistent with normal third-trimester progression. Plan - GBS swab performed - Return to hospital if experiencing con tractions - Follow up appointment scheduled in one week - For back pain: recommend warm showers and sleeping on side [facility] Calculator Estimated Delivery Date Method Current WG Current Estimate 05/28/25 LMP (Certain) 37w 0d Other Estimates 06/02/25 Ultrasound #1 36w 2d Notes Visit Date: 03/26/25 Last Updated by: Quoc Cristobal MD Problem List - Gestational diabetes mellitus - Gastroesophageal reflux disease - Vulvovaginal candidiasis - Scoliosis Office Procedures OB Clinic LOC & Office Proc's Nursing/Assessment Patient Status: Established Patient OB Clinic Nursing Assessment: Medication Reconciliation, Update PMH in EMR and Vital Signs OB Clinic Coordination of Care: Complex Care and Chronic Disease 1-5, Consent,records obtained, informed consent, Education Simp Pt/Fam, Lab and Imaging orders and Staff clarify orders Special Needs: Heart tones Established Patient Charge Established Patient Point Assignment: 130 Established Patient Point Charge: EP Level 4 (120-155) Assessment & Plan Diagnosis / Problem List (1) Supervision of high risk , unspecified, third trimester: Status: Acute
== END 2025-04-16 11:06 | disposition home or self-care (01) ==
LOC: HODSOBC 09:57
PROVIDERS: Supervising Provider Obstetrics & Gynecology; Visit Provider Obstetrics & Gynecology
DX: O09.893 Supervision of other high risk pregnancies, third trimester (principal); O24.419 Gestational diabetes mellitus in pregnancy, unspecified control; Z3A.34 34 weeks gestation of pregnancy; Z79.899 Other long term (current) drug therapy
CPT/HCPCS: 99214; G0463

== ENCOUNTER 2025-05-01 11:00 | Outpatient (AMB) | payer MEDICAID, SELFPAY ==
[2025-05-01 11:15] VITALS: BP 124/77; PULSE 86; RESP 16; TEMP 36.1; O2SAT 97; BMI 38.2
--- NOTE | 2025-05-01 11:15 | OBCLNT_ITS ---
Vital Signs 05/01/25 11:15 Height 1.63 m Height Method Stated Weight 101.661 kg Weight Measurement Method Standing Scale BMI 38.2 BP 124/77 Blood Pressure Source Automatic Cuff Blood Pressure Location Left Upper Arm Position Sitting Respiration 16 Pulse 86 Pulse Source Monitor Temp 96.9 F Temp Source Oral Pulse Oximetry (%) 97 Oxygen Delivery Method Room Air Allergies/Home Meds Allergies & Medications Allergies No Known Allergies Allergy (Verified 05/01/25 11:16) Medication Reconciliation ferrous sulfate 300 mg (60 mg iron)/5 mL oral liquid 300 mg PO QDAY 10/26/24 [History Confirmed 05/01/25] vitamins with calcium no.72-iron 27 mg-folic acid 1 mg tablet ( Vitamins Plus Low Iron) 1 tab PO QDAY 90 days #90 tabs 02/20/25 [Rx Confirmed 05/01/25] blood sugar diagnostic (Blood Glucose Test strips) #100 ea 03/26/25 [Rx Confirmed 05/01/25] blood-glucose meter #1 ea 03/26/25 [Rx Confirmed 05/01/25] fluconazole 150 mg tablet 150 mg PO Q3D 2 doses #2 tabs 03/26/25 [Rx Confirmed 05/01/25] lancets 21 gauge #100 ea 03/26/25 [Rx Confirmed 05/01/25] omeprazole 40 mg capsule,delayed release 40 mg PO QDAY 30 days #30 caps 03/26/25 [Rx Confirmed 05/01/25] Intake Visit Data Collection New Patient or Established: Established Patient (seen at [facility] within 3 years) Reason for Visit:: CARE/ NEEDS GBS Seen by Clinical Staff ONLY (RN/MA): No Head Of Marketing Analytics Required: Yes Head Of Marketing Analytics's name/title: CARE Do You Feel Safe at Home: Yes Authorities Contacted: N/A PCP or OBGYN visit in last 3 months: Yes Hx Now: Yes Are you currently on any form of Control: No Pain Present Currently: No Pain Scale Used: Caceres-Lomas/Numerical Pain scale:: 0 Smoking Status Smoking Status: Never smoker Questionnaires Covid-19 Vaccine Questionnaire Has patient been vacinated for Covid-19 Have you been vacinated for Covid-19: Yes PHQ-9 PHQ-2 Over the last 2 weeks, how often have you been bothered by any of the following problems? 1. Little interest or pleasure in doing things: not at all 2. Feeling down, depressed, or hopeless: not at all Total score: 0 PHQ-9 3. Trouble falling or staying asleep, or sleeping too much: Not at all 4. Feeling tired or having little energy: Not at all 5. Poor appetite or overeating: Not at all 6. Feeling bad about yourself - or that you are a failure or have let yourself or your family down: Not at all 7. Trouble concentrating on things, such as reading the newspaper or watching television: Not at all 8. Moving or speaking so slowly that other people could have noticed? - Or the opposite - being so fidgety or restless that you have been moving around a lot more than usual: not at all 9. Thoughts that you would be better off or of hurting yourself in some way: Not at all Total score: 0 Source: Developed by Drs. Miki Leigh, Smitha Nichole, Kenneth Moya and colleagues, with an educational miladis from [employer]. Depression screen completed yes Social History Living Situation History Lives With: Family Housing: House Tobacco History Smoking Status: Never smoker Second Hand Smoke Exposure: No Alcohol History Alcohol Intake: Former Alcohol Intake Frequency: holidays/special occasions only Substance Use History Substance Use: none Domestic Abuse History Do You Feel Safe at Home: Yes VASCULAR TECH: Past Medical History Past Medical History: No Hx Hypothyroidism, No Hx Hyperthyroidism, No Hx Breast Cancer, No Hx Hypertension, No Hx Cancer, Yes Hx Anemia (mother), No Hx Renal Disease, Yes Hx Diabetes Mellitus Type 2 (mother, father and grandfather), No Hx Hysterectomy and No Hx Polycystic Ovarian Syndrome Care OB Visit Log OB Flowsheet Initial Weight: Not Recorded Date -?-?-?-?-?-?-?-?-?-?-?-?- EGA Weight BP Alb Glu CTX Pres Fundal ht FHR Mov Dilation Station Effacement Hx Notes Visit Note 10/30/24 -?-?-?-?-?-?-?-?-?-?-?-?- 10w 0d 87.146 kg 115/76 Please see notes 12/04/24 -?-?-?-?-?-?-?-?-?-?-?-?- 15w 0d 87.543 kg 138/83 Hyperemesis gravidarum. - Continue current antiemetic medication as prescribed - Educate patient that medication can be taken continuously as needed - Follow up on symptom control at next v isit Vaginal pruritus - Prescribe topical cream for symptomati c relief Routine care Assessment: Patient is in early pregnanc y, with a normal heart rate of 160 bpm. A referral for an anatomy scan ultrasound at 20 weeks has been initiated. Plan: - Confirm referral for 20-week anatomy s can ultrasound - Offer non-invasive testing (N IPT) for sex determination - Patient requests results in a sealed envelope for gender reveal purposes - Educate patient on safe travel during early - Schedule follow-up visit. 12/26/24 -?-?-?-?-?-?-?-?-?-?-?-?- 18w 1d 90.378 kg 134/79 155 active No CTX/LOF/VB. Reports good FM. No TORIBIO/VS, Epig/RUQ pain. No new symptoms or concerns. Planning up coming trip to [place] in December. FHR: 140 bpm (normal). NIPT: Negative for aneuploidy, male fetu s, 9% fraction. Labs (10/29/2024): Hep B/C, HIV, GC/CT neg ative. Rubella immune. Blood type A+, Ab screen negative. Assessment & Plan: at 18w1d, routine visit with normal labs and reassuring genetic screening. Provide copy of lab and NIPT results Schedule follow-up after patient?s May t ravel Ultrasound to be completed after return from [place] Continue routine care Reviewed signs of labor and when to seek care Counseled on rest, diet, hydration, and avoiding high-sugar foods 02/15/25 -?-?-?-?-?-?-?-?-?-?-?-?- 25w 3d 96.332 kg 126/75 absent unknown 163 active at 25w3d here for routine care. FHR 163 bpm. Sono at 24w3d with normal anatomy, EFW 670g. Prior scans in [place] normal. Pap and labs from [facility] reviewed, normal. Plan: Schedule GTT, call [place] for anatomy scan, return in 4w 03/26/25 -?-?-?-?-?-?-?-?-?-?-?-?- 31w 0d 99.45 kg 115/103 occasional unknown 155 active Gestational diabetes mellitus diagnosed at 31 weeks gestation based on a 1-hour glucose tolerance test result of 186 mg/dL. Patient reports recent fasting blood glucose of 80 mg/dL and 2-hour postprandial glucose of 104 mg/dL. Symptomatic gastroesophageal reflux disease (GERD) reported, with previous treatment deemed insufficient. Suspected vulvovaginal candidiasis, likely secondary to elevated blood glucose levels, with patient reporting vaginal discharge upon digital examination. Mild scoliosis noted on previous imaging studies - Start treatment for gestational diabetes immediately - Provide glucometer prescription - Patient to check blood glucose fasting and 1 hour after eating for 7 days - Prescribe stronger medication for acid reflux - Treat for yeast infection - Prescribe medication for yeast infecti on - Complete disability forms after anne holcomb checks eligibility at [employer] office - Follow up in one week for glucose chris ginger - Perform additional labs due to elevate d glucose - Advise patient to come to hospital if decreased movement persists after drinking something sweet 05/01/25 -?-?-?-?-?-?-?-?-?-?-?-?- 36w 1d 101.661 kg 124/77 occasional unknown 16 3 active Patient reports experiencing pelvic pressure and pain, which may be indicative of early labor contractions. No reported vaginal leaking or bleeding, but patient notes white vaginal discharge. heart rate auscultated at 163 bpm, which is within normal limits. Patient exhibits signs of fluid retention, including facial and hand edema. Back pain also reported. All symptoms appear consistent with normal third-trimester progression. Plan - GBS swab performed - Return to hospital if experiencing con tractions - Follow up appointment scheduled in one week - For back pain: recommend warm showers and sleeping on side [facility] Calculator Estimated Delivery Date Method Current WG Current Estimate 05/28/25 LMP (Certain) 36w 1d Other Estimates 06/02/25 Ultrasound #1 35w 3d Notes Visit Date: 03/26/25 Last Updated by: Quoc Cristobal MD Problem List - Gestational diabetes mellitus - Gastroesophageal reflux disease - Vulvovaginal candidiasis - Scoliosis Office Procedures OB Clinic LOC & Office Proc's Nursing/Assessment Patient Status: Established Patient OB Clinic Nursing Assessment: Medication Reconciliation, Update PMH in EMR and Vital Signs OB Clinic Coordination of Care: Complex Care and Chronic Disease 1-5, Cons ent,records obtained, informed consent, Education Simp Pt/Fam, 1 Ins Authorization, Lab and Imaging orders, Results/Orders obtained and Staff clarify orders Special Needs: Heart tones Miscellaneous Interventions: Culture Specimen Collection Established Patient Charge Established Patient Point Assignment: 165 Established Patient Point Charge: EP Level 5 (160-above) Assessment & Plan Diagnosis / Problem List (1) GERD without esophagitis: Status: Acute (2) Aminah vaginitis: Status: Acute (3) Gestational diabetes: Status: Acute (4) Encounter for other screening for genetic and chromosomal anomalies: Status: Acute (5) Supervision of high risk , unspecified, third trimester: Status: Acute
== END 2025-05-01 11:30 | disposition home or self-care (01) ==
LOC: HODSOBC 11:00
PROVIDERS: Supervising Provider Obstetrics & Gynecology; Visit Provider Obstetrics & Gynecology
DX: O09.893 Supervision of other high risk pregnancies, third trimester (principal); O24.419 Gestational diabetes mellitus in pregnancy, unspecified control; O98.813 Other maternal infectious and parasitic diseases complicating pregnancy, third trimester; B37.31 Acute candidiasis of vulva and vagina; O99.613 Diseases of the digestive system complicating pregnancy, third trimester; K21.9 Gastro-esophageal reflux disease without esophagitis; O99.891 Other specified diseases and conditions complicating pregnancy; M41.9 Scoliosis, unspecified; Z3A.36 36 weeks gestation of pregnancy; Z13.79 Encounter for other screening for genetic and chromosomal anomalies
CPT/HCPCS: 99215; G0463

== ENCOUNTER 2025-05-02 15:15 | Observation (INO) | payer MEDICAID, SELFPAY ==
[2025-05-02 15:32] VITALS: BMI 37.1
[2025-05-02 15:40] VITALS: PULSE 82; RESP 16; RESP 98; TEMP 37.1
--- NOTE | 2025-05-02 15:49 | XR_ITS ---
Examination: age Limited Technique: Limited transabdominal sonographic images pelvis Date and time: May 02, 2025, 1559 hrs. Indications: Leaking amniotic fluid today Findings: Viable intrauterine gestation Cardiac motion 147 BPM Amniotic fluid index 7.7 cm Impression: Amniotic fluid index 7.7 cm
[2025-05-02 16:30] VITALS: BP 127/76; PULSE 82; RESP 16; TEMP 37.1; O2SAT 98
[2025-05-02 16:42] LABS: ROM Kit Exp Date# 011828; ROM Kit Lot # 58104371; ROM Swab Mixed By: PATTC1; Swb Mxed in Solvent 1 min? Yes
[2025-05-02 16:46] LABS: Rupture of Fetal Membranes Negative (Negative)
--- NOTE | 2025-05-02 17:05 | ESPR_ITS ---
Documentation for date of: 05/02/25 OB Labor Progress Note Pelvic Exam Dilation (cm): FT Effacement (%): THICK station: -3 Assessment and Plan Comments: Triage Note Genesis is a 20yo with SIUP at 36&2wk presenting to L&D for vaginal leakage of fluid. She notes no painful/regular ctx, no vaginal bleeding. Normal movement. complicated by: - Gestational diabetes mellitus - Gastroesophageal reflux disease - Vulvovaginal candidiasis - Scoliosis ROS negative other than what was described above. Vitals wnl, afebrile General: well developed, well nourished, no acute distress, conversant Cardiac: normal heart rate Lungs: breathing without distress Abdomen: soft, gravid, non-tender, no rebound or guarding Extremities: no pain with palpation of calves Per RN: No gross leakage of fluid or pooling with collection of AmniSure NST: Reactive, +accels, no decels, mod joseph Marcola: no regular ctx pattern Labs: AmniSure Test: Negative Radiology: Examination: age Limited Technique: Limited transabdominal sonographic images pelvis Date and time: May 02, 2025, 1559 hrs. Indications: Leaking amniotic fluid today Findings: Viable intrauterine gestation Cardiac motion 147 BPM Amniotic fluid index 7.7 cm Impression: Amniotic fluid index 7.7 cm Assessment: Genesis is a 20yo with SIUP at 36&2wk with no evidence of ROM. Vitals wnl, benign exam. Reassuring status based on NST/MILTON (modified BPP). Plan: -Continue routine follow up with OBGYN within 1 week -Return precautions discussed Franca Ferreira MD
== END 2025-05-02 17:16 | disposition home or self-care (01) ==
LOC: S4SX 15:29
PROVIDERS: Admitting Provider Obstetrics & Gynecology; Visit Provider Obstetrics & Gynecology
DX: Z03.71 Encounter for suspected problem with amniotic cavity and membrane ruled out (principal); Z3A.36 36 weeks gestation of pregnancy
CPT/HCPCS: 59025; 59899; 76815; 84112

== ENCOUNTER 2025-05-03 22:02 | Observation (INO) | payer MEDICAID, SELFPAY ==
[2025-05-03] VITALS (22 sets, daily range): BP systolic 115–146; BP diastolic 56–78; PULSE 64–94; RESP 18–98; TEMP 36.7; O2SAT 98–100; BMI 38.2
[2025-05-03 23:08] LABS: ROM Kit Exp Date# 1/18/28; ROM Kit Lot # 58104371; Swb Mxed in Solvent 1 min? Yes
[2025-05-03 23:09] LABS: ROM Swab Mixed By: TA; Rupture of Fetal Membranes Negative (Negative)
[2025-05-04 00:13] VITALS: BP 117/70; PULSE 71
== END 2025-05-04 00:42 | disposition home or self-care (01) ==
PROVIDERS: Admitting Provider Obstetrics & Gynecology; Visit Provider Obstetrics & Gynecology
DX: O26.893 Other specified pregnancy related conditions, third trimester (principal); Z3A.36 36 weeks gestation of pregnancy; R10.9 Unspecified abdominal pain
CPT/HCPCS: 59899; 84112

== ENCOUNTER 2025-05-07 16:04 | Observation (INO) | payer MEDICAID, SELFPAY ==
[2025-05-07 16:13] VITALS: BMI 38.3
[2025-05-07 16:21] VITALS: BP 125/72; PULSE 98
[2025-05-07 16:31] VITALS: BP 125/72; PULSE 98; RESP 16; RESP 98; TEMP 36.8
[2025-05-07 17:33] LABS: ROM Kit Exp Date# 011828; ROM Kit Lot # 58104371; ROM Swab Mixed By: CP; Swb Mxed in Solvent 1 min? Yes
[2025-05-07 17:34] LABS: Rupture of Fetal Membranes Negative (Negative)
== END 2025-05-07 17:10 | disposition home or self-care (01) ==
PROVIDERS: Admitting Provider Obstetrics & Gynecology; Visit Provider Obstetrics & Gynecology
DX: O36.8190 Decreased fetal movements, unspecified trimester, not applicable or unspecified (principal); Z3A.00 Weeks of gestation of pregnancy not specified
CPT/HCPCS: 59025; 59899; 84112

== ENCOUNTER 2025-05-13 19:40 | Observation (INO) | payer MEDICAID, SELFPAY ==
[2025-05-13] VITALS (15 sets, daily range): BP systolic 112–117; BP diastolic 66–76; PULSE 70–88; RESP 18–98; TEMP 36.8; O2SAT 98–99; BMI 38.4
[2025-05-13 20:17] LABS: ROM Kit Exp Date# 01/18/28; ROM Kit Lot # 58104371; ROM Swab Mixed By: JS; Rupture of Fetal Membranes Negative (Negative); Swb Mxed in Solvent 1 min? Yes
== END 2025-05-13 21:20 | disposition home or self-care (01) ==
PROVIDERS: Admitting Provider Obstetrics & Gynecology; Visit Provider Obstetrics & Gynecology
DX: Z34.03 Encounter for supervision of normal first pregnancy, third trimester (principal); Z3A.37 37 weeks gestation of pregnancy
CPT/HCPCS: 59025; 59899; 84112

== ENCOUNTER 2025-05-14 15:05 | Outpatient (AMB) | payer MEDICAID, SELFPAY ==
--- NOTE | 2025-05-14 15:20 | OBCLNT_ITS ---
Vital Signs 05/14/25 15:22 Height 1.63 m Height Method Stated Weight 100.357 kg Weight Measurement Method Standing Scale BMI 37.8 BP 119/76 Blood Pressure Source Automatic Cuff Blood Pressure Location Left Upper Arm Position Sitting Respiration 16 Pulse 76 Pulse Source Monitor Temp 97.2 F Temp Source Oral Pulse Oximetry (%) 98 Oxygen Delivery Method Room Air Allergies/Home Meds Allergies & Medications Allergies No Known Allergies Allergy (Verified 05/14/25 15:29) Medication Reconciliation ferrous sulfate 300 mg (60 mg iron)/5 mL oral liquid 300 mg PO QDAY 10/26/24 [History Confirmed 05/14/25] Held on 05/03/25. Instructions: patient states she is not taking medication anymore vitamins with calcium no.72-iron 27 mg-folic acid 1 mg tablet ( Vitamins Plus Low Iron) 1 tab PO QDAY 90 days #90 tabs 02/20/25 [Rx Confirmed 05/14/25] blood sugar diagnostic (Blood Glucose Test strips) #100 ea 03/26/25 [Rx Confirmed 05/14/25] blood-glucose meter #1 ea 03/26/25 [Rx Confirmed 05/14/25] lancets 21 gauge #100 ea 03/26/25 [Rx Confirmed 05/14/25] omeprazole 40 mg capsule,delayed release 40 mg PO QDAY 30 days #30 caps 03/26/25 [Rx Confirmed 05/14/25] Intake Visit Data Collection New Patient or Established: Established Patient (seen at [facility] within 3 years) Reason for Visit:: [facility] Seen by Clinical Staff ONLY (RN/MA): No Powderer Required: No Do You Feel Safe at Home: Yes Authorities Contacted: N/A PCP or OBGYN visit in last 3 months: Yes Date of Last PCP or OBGYN visit: 05/13/25 Hx Now: Yes Are you currently on any form of Control: No Pain Present Currently: No Pain Scale Used: Caceres-Lomas/Numerical Pain scale:: 0 Smoking Status Smoking Status: Never smoker Questionnaires Covid-19 Vaccine Questionnaire Has patient been vacinated for Covid-19 Have you been vacinated for Covid-19: Yes PHQ-9 PHQ-2 Over the last 2 weeks, how often have you been bothered by any of the following problems? 1. Little interest or pleasure in doing things: not at all 2. Feeling down, depressed, or hopeless: not at all Total score: 0 PHQ-9 3. Trouble falling or staying asleep, or sleeping too much: Not at all 4. Feeling tired or having little energy: Not at all 5. Poor appetite or overeating: Not at all 6. Feeling bad about yourself - or that you are a failure or have let yourself or your family down: Not at all 7. Trouble concentrating on things, such as reading the newspaper or watching television: Not at all 8. Moving or speaking so slowly that other people could have noticed? - Or the opposite - being so fidgety or restless that you have been moving around a lot more than usual: not at all 9. Thoughts that you would be better off or of hurting yourself in some way: Not at all Total score: 0 If you checked off any problems, how difficult have these problems made it for you to do your work, take care of things at home, or get along with other people?: not difficult at all Source: Developed by Drs. Miki Leigh, Smitha Nichole, Kenneth Moya and colleagues, with an educational miladis from [employer]. 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: Past Medical History Past Medical History: No Hx Hypothyroidism, No Hx Hyperthyroidism, No Hx Breast Cancer, No Hx Hypertension, No Hx Cancer, Yes Hx Anemia (mother), No Hx Renal D isease, Yes Hx Diabetes Mellitus Type 2 (mother, father and grandfather), No Hx Hysterectomy and No Hx Polycystic Ovarian Syndrome Care OB Visit Log OB Flowsheet Initial Weight: Not Recorded Date -?-?-?-?-?-?-?-?-?-?-?-?- EGA Weight BP Alb Glu CTX Pres Fundal ht FHR Mov Dilation Station Effacement Hx Notes Visit Note 10/30/24 -?-?-?-?-?-?-?-?-?-?-?-?- 10w 0d 87.146 kg 115/76 Please see notes 04/08/25 -?-?-?-?-?-?-?-?-?-?-?-?- 15w 0d 87.543 kg 138/83 Hyperemesis gravidarum. - Continue current antiemetic medication as prescribed - Educate patient that medication can be taken continuously as needed - Follow up on symptom control at next v isit Vaginal pruritus - Prescribe topical cream for symptomati c relief Routine care Assessment: Patient is in early pregnanc y, with a normal heart rate of 160 bpm. A referral for an anatomy scan ultrasound at 20 weeks has been initiated. Plan: - Confirm referral for 20-week anatomy s can ultrasound - Offer non-invasive testing (N IPT) for sex determination - Patient requests results in a sealed envelope for gender reveal purposes - Educate patient on safe travel during early - Schedule follow-up visit. 12/26/24 -?-?-?-?-?-?-?-?-?-?-?-?- 18w 1d 90.378 kg 134/79 155 active No CTX/LOF/VB. Reports good FM. No TROIBIO/VS, Epig/RUQ pain. No new symptoms or concerns. Planning up coming trip to [place] in December. FHR: 140 bpm (normal). NIPT: Negative for aneuploidy, male fetu s, 9% fraction. Labs (10/29/2024): Hep B/C, HIV, GC/CT neg ative. Rubella immune. Blood type A+, Ab screen negative. Assessment & Plan: at 18w1d, routine visit with normal labs and reassuring genetic screening. Provide copy of lab and NIPT results Schedule follow-up after patient?s May t ravbailey Ultrasound to be completed after return from [place] Continue routine care Reviewed signs of labor and when to seek care Counseled on rest, diet, hydration, and avoiding high-sugar foods 02/15/25 -?-?-?-?-?-?-?-?-?-?-?-?- 25w 3d 96.332 kg 126/75 absent unknown 163 active at 25w3d here for routine care. FHR 163 bpm. Sono at 24w3d with normal anatomy, EFW 670g. Prior scans in [place] normal. Pap and labs from [place] reviewed, normal. Plan: Schedule GTT, call [facility] for anatomy scan, return in 4w 03/26/25 -?-?-?-?-?-?-?-?-?-?-?-?- 31w 0d 99.45 kg 115/103 occasional unknown 155 active Gestational diabetes mellitus diagnosed at 31 weeks gestation based on a 1-hour glucose tolerance test result of 186 mg/dL. Patient reports recent fasting blood glucose of 80 mg/dL and 2-hour postprandial glucose of 104 mg/dL. Symptomatic gastroesophageal reflux disease (GERD) reported, with previous treatment deemed insufficient. Suspected vulvovaginal candidiasis, likely secondary to elevated blood glucose levels, with patient reporting vaginal discharge upon digital examination. Mild scoliosis noted on previous imaging studies - Start treatment for gestational diabetes immediately - Provide glucometer prescription - Patient to check blood glucose fasting and 1 hour after eating for 7 days - Prescribe stronger medication for acid reflux - Treat for yeast infection - Prescribe medication for yeast infecti on - Complete disability forms after anne t checks eligibility at [employer] office - Follow up in one week for glucose chris miles - Perform additional labs due to elevate d glucose - Advise patient to come to hospital if decreased movement persists after drinking something sweet 04/16/25 -?-?-?-?-?-?-?-?-?-?-?-?- 34w 0d 100.471 kg 131/80 occasional unknown 35 165 active - She reports ongoing bone pain during : - Aggravated by sitting on hard surfac es - No specific treatment available - Patient experienced hiccups: - Resolved on its own - Advised that it may be related to de hydration - Blood sugar management: - Patient is monitoring blood glucose levels - One elevated reading noted (158 mg/d L) - Overall, blood sugar numbers reported as good - Continue monitoring blood sugar levels - Drink plenty of water to prevent dehyd ration - Use cushioned seating to alleviate bon e pain during - Return to hospital if hiccups pe rsist - Follow up for next visit (lennox ing not specified) 05/01/25 -?-?-?-?-?-?-?-?-?-?-?-?- 36w 1d 101.661 kg 124/77 occasional unknown 16 3 active Patient reports experiencing pelvic pressure and pain, which may be indicative of early labor contractions. No reported vaginal leaking or bleeding, but patient notes white vaginal discharge. heart rate auscultated at 163 bpm, which is within normal limits. Patient exhibits signs of fluid retention, including facial and hand edema. Back pain also reported. All symptoms appear consistent with normal third-trimester progression. Plan - GBS swab performed - Return to hospital if experiencing con tractions - Follow up appointment scheduled in one week - For back pain: recommend warm showers and sleeping on side 05/14/25 -?-?-?-?-?-?-?-?-?-?-?-?- 38w 0d 100.357 kg 119/76 occasional unknown 39 155 active Ankita Rudolph, , presents for routine visit at 36 weeks and 1 day gestation. No contractions, LOF, VB and reports goo d FM. Denies TORIBIO, VC, and epigastric pain. Plan - Complete full anemia panel today - Start iron supplementation - Consider IV iron if levels are very lo w - Conduct lab work at [facility] on [address] t omorrow morning (closes at 3 PM) - Follow up in one week [facility] Calculator Estimated Delivery Date Method Current WG Current Estimate 05/28/25 LMP (Certain) 38w 5d Other Estimates 06/02/25 Ultrasound #1 38w 0d Notes Visit Date: 03/26/25 Last Updated by: Quoc Cristobal MD Problem List - Gestational diabetes mellitus - Gastroesophageal reflux disease - Vulvovaginal candidiasis - Scoliosis Office Procedures OB Clinic LOC & Office Proc's Nursing/Assessment Patient Status: Established Patient OB Clinic Nursing Assessment: Medication Reconciliation, Update PMH in EMR and Vital Signs OB Clinic Coordination of Care: Education Complex Pt/Fam, Consent,records obtained, informed consent, Lab and Imaging orders, Results/Orders obtained and Staff clarify orders Special Needs: Heart tones Established Patient Charge Established Patient Point Assignment: 115 Established Patient Point Charge: EP Level 3 (80-115) Assessment & Plan Diagnosis / Problem List (1) Supervision of high risk , unspecified, third trimester: Status: Acute (2) GERD without esophagitis: Status: Acute
[2025-05-14 15:22] VITALS: BP 119/76; PULSE 76; RESP 16; TEMP 36.2; O2SAT 98; BMI 37.8
== END 2025-05-14 15:31 | disposition home or self-care (01) ==
LOC: HODSOBC 15:05
PROVIDERS: Supervising Provider Obstetrics & Gynecology; Visit Provider Obstetrics & Gynecology
DX: O09.893 Supervision of other high risk pregnancies, third trimester (principal); O99.613 Diseases of the digestive system complicating pregnancy, third trimester; K21.9 Gastro-esophageal reflux disease without esophagitis; O24.419 Gestational diabetes mellitus in pregnancy, unspecified control; Z3A.38 38 weeks gestation of pregnancy
CPT/HCPCS: 99213; G0463

== ENCOUNTER 2025-05-19 17:48 | Observation (INO) | payer MEDICAID, SELFPAY ==
[2025-05-19] VITALS (33 sets, daily range): BP systolic 104–124; BP diastolic 56–83; PULSE 67–91; RESP 18–98; TEMP 36.8; O2SAT 97–99; BMI 39.8
--- NOTE | 2025-05-19 18:40 | XR_ITS ---
Examination: Complete OB ultrasound greater than 14 weeks Date and time of exam: May 19, 20252013 hrs. Indications: Vaginal bleeding today, labor evaluation Findings: Viable intrauterine single fetus with single amniotic sac presentation cephalic spine anterior Cardiac motion 145 BPM Placenta fundal grade 2 Umbilical cord insertion seen. Amniotic fluid 10.9 cm Cervix 3.1 cm Ovaries obscured by bowel gas. Composite estimated gestational age based on BPD, head circumference, abdominal circumference, femur length is 38 weeks 0 days Estimated weight 3364 g. Survey of intracranial anatomy, spinal anatomy, abdominal anatomy, four-chamber heart performed with no abnormalities identified. Impression: Viable intrauterine gestations volume presentation.
--- NOTE | 2025-05-19 18:40 | XR_ITS ---
Examination: Biophysical profile, ultrasound Date and time of exam: May 19, 2025, 195 hrs. Indications: Onset vaginal bleeding today Technique: Multiple transabdominal sonographic images of the pelvis abdomen obtained. Attention is directed to the breathing movement, gross body movement, amniotic fluid volume and tone. Findings: Amniotic fluid index 10.9 cm Total biophysical profile is 8 of 8. breathing movement is 2. Gross body movement is 2. tone is 2. Qualitative amniotic fluid volume is 2 Impression: Biophysical profile is 8 of 8.
== END 2025-05-19 21:25 | disposition home or self-care (01) ==
PROVIDERS: Admitting Provider Advanced Practice Midwife; PCP Advanced Practice Midwife; Visit Provider Advanced Practice Midwife
DX: O47.1 False labor at or after 37 completed weeks of gestation (principal); Z3A.38 38 weeks gestation of pregnancy
CPT/HCPCS: 59025; 59899; 76805; 76819

== ENCOUNTER 2025-05-21 08:27 | Outpatient (AMB) | payer MEDICAID, SELFPAY ==
--- NOTE | 2025-05-21 08:34 | OBCLNT_ITS ---
Vital Signs 05/21/25 08:36 Height 1.63 m Height Method Stated Weight 102.285 kg Weight Measurement Method Standing Scale BMI 38.5 BP 126/81 Blood Pressure Source Automatic Cuff Blood Pressure Location Left Upper Arm Position Sitting Respiration 18 Pulse 92 Pulse Source Monitor Temp 96.8 F Temp Source Oral Pulse Oximetry (%) 96 Oxygen Delivery Method Room Air Allergies/Home Meds Allergies & Medications Allergies No Known Allergies Allergy (Verified 05/21/25 08:37) Medication Reconciliation ferrous sulfate 300 mg (60 mg iron)/5 mL oral liquid 300 mg PO QDAY 10/26/24 [History Confirmed 05/21/25] vitamins with calcium no.72-iron 27 mg-folic acid 1 mg tablet ( Vitamins Plus Low Iron) 1 tab PO QDAY 90 days #90 tabs 02/20/25 [Rx Confirmed 05/21/25] blood sugar diagnostic (Blood Glucose Test strips) #100 ea 03/26/25 [Rx Confirmed 05/21/25] blood-glucose meter #1 ea 03/26/25 [Rx Confirmed 05/21/25] lancets 21 gauge #100 ea 03/26/25 [Rx Confirmed 05/21/25] omeprazole 40 mg capsule,delayed release 40 mg PO QDAY 30 days #30 caps 03/26/25 [Rx Confirmed 05/21/25] Intake Visit Data Collection New Patient or Established: Established Patient (seen at [facility] within 3 years) Reason for Visit:: CARE Seen by Clinical Staff ONLY (RN/MA): No 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 1. Little interest or pleasure in doing things: not at all 2. Feeling down, depressed, or hopeless: not at all Total score: 0 PHQ-9 3. Trouble falling or staying asleep, or sleeping too much: Not at all 4. Feeling tired or having little energy: Not at all 5. Poor appetite or overeating: Not at all 6. Feeling bad about yourself - or that you are a failure or have let yourself or your family down: Not at all 7. Trouble concentrating on things, such as reading the newspaper or watching television: Not at all 8. Moving or speaking so slowly that other people could have noticed? - Or the opposite - being so fidgety or restless that you have been moving around a lot more than usual: not at all 9. Thoughts that you would be better off or of hurting yourself in some way: Not at all Total score: 0 Source: Developed by Drs. Miki Leigh, Smitha Nichole, Kenneth Moya and colleagues, with an educational miladis from [employer]. 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543 kg 138/83 Hyperemesis gravidarum. - Continue current antiemetic medication as prescribed - Educate patient that medication can be taken continuously as needed - Follow up on symptom control at next v isit Vaginal pruritus - Prescribe topical cream for symptomati c relief Routine care Assessment: Patient is in early pregnanc y, with a normal heart rate of 160 bpm. A referral for an anatomy scan ultrasound at 20 weeks has been initiated. Plan: - Confirm referral for 20-week anatomy s can ultrasound - Offer non-invasive testing (N IPT) for sex determination - Patient requests results in a sealed envelope for gender reveal purposes - Educate patient on safe travel during early - Schedule follow-up visit. 12/26/24 -?-?-?-?-?-?-?-?-?-?-?-?- 18w 1d 90.378 kg 134/79 155 active No CTX/LOF/VB. Reports good FM. No TORIBIO/VS, Epig/RUQ pain. No new symptoms or concerns. Planning up coming trip to [place] in December. FHR: 140 bpm (normal). NIPT: Negative for aneuploidy, male fetu s, 9% fraction. Labs (10/29/2024): Hep B/C, HIV, GC/CT neg ative. Rubella immune. Blood type A+, Ab screen negative. Assessment & Plan: at 18w1d, routine visit with normal labs and reassuring genetic screening. Provide copy of lab and NIPT results Schedule follow-up after patient?s May t ravel Ultrasound to be completed after return from [place] Continue routine care Reviewed signs of labor and when to seek care Counseled on rest, diet, hydration, and avoiding high-sugar foods 02/15/25 -?-?-?-?-?-?-?-?-?-?-?-?- 25w 3d 96.332 kg 126/75 absent unknown 163 active at 25w3d here for routine care. FHR 163 bpm. Sono at 24w3d with normal anatomy, EFW 670g. Prior scans in [place] normal. Pap and labs from Jul reviewed, normal. Plan: Schedule GTT, call [place] for anatomy scan, return in 4w 03/26/25 -?-?-?-?-?-?-?-?-?-?-?-?- 31w 0d 99.45 kg 115/103 occasional unknown 155 active Gestational diabetes mellitus diagnosed at 31 weeks gestation based on a 1-hour glucose tolerance test result of 186 mg/dL. Patient reports recent fasting blood glucose of 80 mg/dL and 2-hour postprandial glucose of 104 mg/dL. Symptomatic gastroesophageal reflux disease (GERD) reported, with previous treatment deemed insufficient. Suspected vulvovaginal candidiasis, likely secondary to elevated blood glucose levels, with patient reporting vaginal discharge upon digital examination. Mild scoliosis noted on previous imaging studies - Start treatment for gestational d iabetes immediately - Provide glucometer prescription - Patient to check blood glucose fasting and 1 hour after eating for 7 days - Prescribe stronger medication for acid reflux - Treat for yeast infection - Prescribe medication for yeast infecti on - Complete disability forms after anne t checks eligibility at [facility] office - Follow up in one week for glucose chris miles - Perform additional labs due to elevate d glucose - Advise patient to come to hospital if decreased movement persists after drinking something sweet 04/16/25 -?-?-?-?-?-?-?-?-?-?-?-?- 34w 0d 100.471 kg 131/80 occasional unknown 35 165 active - She reports ongoing bone pain during : - Aggravated by sitting on hard surfac es - No specific treatment available - Patient experienced hiccups: - Resolved on its own - Advised that it may be related to de hydration - Blood sugar management: - Patient is monitoring blood glucose levels - One elevated reading noted (158 mg/d L) - Overall, blood sugar numbers reported as good - Continue monitoring blood sugar levels - Drink plenty of water to prevent dehyd ration - Use cushioned seating to alleviate bon e pain during - Return to hospital if hiccups pe rsist - Follow up for next visit (lennox ing not specified) 05/01/25 -?-?-?-?-?-?-?-?-?--?-?-?- 36w 1d 101.661 kg 124/77 occasional unknown 16 3 active Patient reports experiencing pelvic pressure and pain, which may be indicative of early labor contractions. No reported vaginal leaking or bleeding, but patient notes white vaginal discharge. heart rate auscultated at 163 bpm, which is within normal limits. Patient exhibits signs of fluid retention, including facial and hand edema. Back pain also reported. All symptoms appear consistent with normal third-trimester progression. Plan - GBS swab performed - Return to hospital if experiencing con tractions - Follow up appointment scheduled in one week - For back pain: recommend warm showers and sleeping on side 05/14/25 -?-?-?-?-?-?-?-?-?-?-?-?- 38w 0d 100.357 kg 119/76 occasional unknown 39 155 active Ankita Rudolph, , presents for routine visit at 36 weeks and 1 day gestation. No contractions, LOF, VB and reports goo d FM. Denies TORIBIO, VC, and epigastric pain. Plan - Complete full anemia panel today - Start iron supplementation - Consider IV iron if levels are very lo w - Conduct lab work at [facility] on [address] t omorrow morning (closes at 3 PM) - Follow up in one week 05/21/25 -?-?-?-?-?-?-?-?-?-?-?-?- 39w 0d 102.285 kg 126/81 occasional cephalic 41 145 active - She experienced bleeding 2 days ago and was evaluated at Labor and Delivery. - Was told there was no internal bleed ing and baby was fine. - Has had discharge since the bleeding episode, which she describes as normal. - Denies any further bleeding since th e initial episode. - She reports having frequent headaches and cramping. - Headaches have been bothersome. - Cramping is ongoing. - She describes feeling very uncomfortab le and states she is not comfortable anymore at this stage of . - She had monitoring today with normal heart rate of 14 5 bpm. Plan - Induction of labor moved to tomorrow ( 05/22/2025) - Patient to call Labor and Delivery at 8am tomorrow - No further appointments scheduled [facility] Calculator Estimated Delivery Date Method Current WG Current Estimate 05/28/25 LMP (Certain) 39w 0d Other Estimates 06/02/25 Ultrasound #1 38w 2d Notes Visit Date: 03/26/25 Last Updated by: Quoc Cristobal MD Problem List - Gestational diabetes mellitus - Gastroesophageal reflux disease - Vulvovaginal candidiasis - Scoliosis Office Procedures OB Clinic LOC & Office Proc's Nursing/Assessment Patient Status: Established Patient OB Clinic Nursing Assessment: Medication Reconciliation, Update PMH in EMR and Vital Signs OB Clinic Coordination of Care: Complex Care and Chronic Disease 1-5, Consent,records obtained, informed consent, Education Simp Pt/Fam, 1 Ins Authorization, Lab and Imaging orders, Results/Orders obtained and Staff clarify orders Special Needs: Heart tones Established Patient Charge Established Patient Point Assignment: 150 Established Patient Point Charge: EP Level 4 (120-155) Assessment & Plan Diagnosis / Problem List (1) Supervision of high risk , unspecified, third trimester: Status: Acute Plan Problem List - Gestational diabetes mellitus - , 39 weeks - Vaginal bleeding during - Headache - Uterine cramping Assessment at 39 weeks 0 days gestation with gestational diabetes mellitus (GDM), presenting with recent history of bleeding 2 days ago, which has since resolved. Patient reports ongoing discomfort, frequent headaches, and cramping. Recent evaluation at Labor and Delivery confirmed no internal bleeding and normal status. Patient also notes vaginal discharge, which is considered normal at this stage of . heart rate was documented as 145 bpm, which is within normal range. Blood pressure was reported as good, despite the patient's complaints of headaches. Plan - Induction of labor moved to tomorrow (05/22/2025) - Patient to call Labor and Delivery at 8am tomorrow - No further appointments scheduled 1. Progress Reviewed gestational age (39 weeks 0 days), growth, and heart rate (145 bpm normal). Patient is with GDM scheduled for induction. 2. Instructed patient to monitor movements and report decreases immediately. 3. Testing Patient had recent L&D monitoring today with normal results. No further testing indicated at this gestational age. 4. Preeclampsia Precaution Patient reports headaches but blood pressure is normal. Educated on preeclampsia signs: severe headache, vision changes, right upper quadrant pain, sudden swelling. Advised urgent reporting of symptoms. 5. Labor Precautions Patient experienced bleeding 2 days ago, evaluated at L&D with reassuring findings. Currently experiencing cramping which is normal preparation for labor. Normal discharge noted. 6. Lifestyle and Delivery Preparation Induction moved from Tuesday05/25/2025 to tomorrow due to patient discomfort. Patient to call at 8am for admission instructions. 7. Psychosocial Support Patient expressing discomfort and readiness for delivery at term gestation. Reassurance provided regarding normal [id number] symptoms.
[2025-05-21 08:36] VITALS: BP 126/81; PULSE 92; RESP 18; TEMP 36; O2SAT 96; BMI 38.5
== END 2025-05-21 10:37 | disposition home or self-care (01) ==
LOC: HODSOBC 08:27
PROVIDERS: Supervising Provider Obstetrics & Gynecology; Visit Provider Obstetrics & Gynecology
DX: O09.893 Supervision of other high risk pregnancies, third trimester (principal); O24.419 Gestational diabetes mellitus in pregnancy, unspecified control; Z3A.39 39 weeks gestation of pregnancy
CPT/HCPCS: 99214; G0463

== ENCOUNTER 2025-05-22 18:00 | Observation (INO) | payer MEDICAID, SELFPAY ==
[2025-05-22 18:15] VITALS: BP 121/62; PULSE 96; RESP 18; RESP 97; TEMP 36.8; O2SAT 97
--- NOTE | 2025-05-22 19:36 | PD.EVENT ---
Documentation for date of: 05/22/25 Event Note Event Note: The patient is a 20-year-old at 39 and 1 sevenths weeks all care uncomplicated Dr. Cristobal. Patient may have gestational diabetes. Her 1 hour glucose was 186 her hemoglobin A1c was 5.2. She never had a 3-hour test. She was supposed to be induced and was called off the induction schedule today. She presented to the ER not feeling well this evening around 1700. Her blood sugar was 119. NST was reactive. The patient was found to be irregular logan. It seemed like she was having a panic attack. Her pulse was high as was her respirations. The patient was quite worried about the wellbeing of her baby. Once the triage nurse was able to talk to the patient and calm her down she looked much better. She was afraid that the baby somehow was going to have problems if her induction was called off. From reading her clinic notes, it seems like the patient like has been quite uncomfortable this and that is why Dr. Cristobal had scheduled her induction. Her cervix was 1 cm earlier in the week. Today she is 2 to 3 cm dilated 70-2 with a high station. The board is quite busy so the patient will not be admitted tonight. She is not in active labor. She was given labor precautions and the opportunity to ask any questions. Her mother is at bedside. They live close to the hospital. She was told to go home rest sit on the labor ball take a warm bath to see if she kicks into labor if she does she can come back otherwise she will call tomorrow to see if there is an induction spot available. All questions were answered.
== END 2025-05-22 19:35 | disposition home or self-care (01) ==
PROVIDERS: Admitting Provider Obstetrics & Gynecology; Visit Provider Obstetrics & Gynecology
DX: O26.893 Other specified pregnancy related conditions, third trimester (principal); Z3A.39 39 weeks gestation of pregnancy; R20.2 Paresthesia of skin
CPT/HCPCS: 59025; 59899

== ENCOUNTER 2025-05-23 08:04 | Inpatient (IN) | payer MEDICAID, SELFPAY ==
--- NOTE | 2025-05-06 23:13 | PC.NURSE ---
2153:Pt. called to Labor & Delivery, reports she has had decreased movement since this morning 05/06/2025, pt. reports she has drank water all day and has not helped. Labor and kick count precautions provided to the pt. Pt. was advised to come to L&D to get evaluated. Pt. reported she will make her way in.
[2025-05-23] VITALS (33 sets, daily range): BP systolic 109–133; BP diastolic 57–78; PULSE 63–86; RESP 15; TEMP 36.6–36.9; O2SAT 96–100; BMI 38.1
--- NOTE | 2025-05-23 08:17 | XR_ITS ---
Examination: Complete OB ultrasound greater than 14 weeks Date and time of exam: May 23, 2025 0831 hours INDICATIONS: Pelvic pressure today, preop labor induction today Findings: Viable intrauterine single fetus with single amniotic sac presentation cephalic Cardiac motion 145 BPM Placenta posterior grade 3 Umbilical cord insertion 3 vessel seen Amniotic fluid index 6.6 cm spine maternal right Right ovary 4.4 cm arterial flow Left ovary 4.1 cm arterial flow. Composite estimated gestational age based on BPD, head circumference, abdominal circumference, femur length is 30 weeks 4 days Estimated weight 3555 g. Survey of intracranial anatomy, spinal anatomy, abdominal anatomy, four-chamber heart performed with no abnormalities identified. Impression: Viable intrauterine gestation cephalic presentation.
--- NOTE | 2025-05-23 08:49 | ESHP_ITS ---
Documentation for date of: 05/23/25 OB Labor/Induct. HPI History of Present Illness Chief complaint: Induction of labor : 1 Para: 0 Term pregnancies: 0 pregnancies: 0 Living children: 0 History of Abortions: Spontaneous and Elective: 0 History of sections: No History of : No History of present illness: Genesis Liu presents with significant discomfort, ongoing vaginal bleeding for 2 days, headaches, and cramping at 39 weeks and 2 days gestation. She is a presenting for induction of labor. Despite these symptoms, she reports adequate movements. The patient denies any visual changes or epigastric pain. Her has been significant for severe hyperemesis and gestational diabetes, which is currently diet-controlled with reported good glycemic control. Her due date was initially set for June 02 based on early ultrasound but was later updated to May 28, 2025, based on her last menstrual period. The patient has been receiving care at the [facility]. Her has been closely monitored, with labs reviewed and reported as reassuring. The patient's NIPT test results were negative, indicating a male fetus. She is a 37-year-old female with an obstetric history of A0 L0. She is currently on a clear liquid diet and has been given Cervidil for cervical ripening. ROS: Positive for discomfort, headaches, vaginal bleeding, and cramping. Negative for visual changes and epigastric pain, limited to pertinent complaints. - labs: - Hepatitis B: Negative - Hepatitis C: Negative - VDRL/RPR: Non-reactive - Rubella: Immune - Blood group: A-positive - Antibody screen: Negative - HIV: Negative - Gonorrhea: Negative - Chlamydia: Negative - NIPT: Negative, male fetus - Ultrasound (TueMay 23 2025): - Estimated weight: 3555 grams - Survey of overall anatomy: Within normal limits - presentation: Cephalic Past Medical History Surgical History SURGICAL: Negative Section Meds Home Medications and Allergies Home Medications ?Medication ?Instructions ?Recorded ?Confirmed ?Type ferrous sulfate 300 mg (60 mg 300 mg PO QDAY 10/26/24 05/23/25 History iron)/5 mL oral liquid Allergies Allergy/AdvReac Type Severity Reaction Status Date / Time No Known Allergies Allergy Verified 05/23/25 08:52 OB Exam Physical Exam Vital signs: Pulse BP 85 130/72 05/23/25 08:18 05/23/25 08:18 Constitutional Constitutional: no acute distress Routine HEENT Exam Head: Present normocephalic and atraumatic Eye: Present EOMI and PERRL ENT: Present mucous membranes moist Routine Neck Exam Neck: Present supple and trachea midline Routine Cardiovascular Exam Cardiovascular: Present RRR Routine Abdominal Exam Abdominal: Present soft and normoactive bowel sounds Detailed Labor and Delivery Exam Dilation (cm): 2 Effacement (%): 50 Cervix position: posterior station: -3 Consistency: medium Presentation: Vertex Membranes: intact Baseline heart rate: 145 monitor accelerations: 15x15 monitor decelerations: None Routine Extremities Exam Extremities: Present full ROM Routine Skin Exam Skin: Present intact, dry and warm Routine Neurological Exam Neurological: Present alert, oriented X3 and CN II-XII intact Routine Psychiatric Exam Psychiatric: Present normal affect and normal thought process OB Results Labs 05/23/25 08:36 OB Assessment & Plan Assessment and Plan (1) Supervision of high risk , unspecified, third trimester: Status: Acute Assessment and plan: at 39 weeks and 2 days: - at 39 weeks and 2 days gestation presenting for induction of labor. - complicated by severe hyperemesis and gestational diabetes (diet- controlled). - Recent complaints include significant discomfort, vaginal bleeding for 2 days, headaches, and cramping. - Adequate movements reported, denies visual changes or epigastric pain. - Cervix 2 cm dilated, 50% effaced, and posterior with cephalic presentation. - Ultrasound shows estimated weight of 3555 grams with normal anatomy survey. Plan: - Admit to inpatient for induction of labor. - Start IV fluids: LR at 125 cc/hr. - Order labs: CBC, type and screen, RPR. - Initiate cervical ripening with Cervidil. - Proceed to oxytocin when Tucker score is favorable. - Implement continuous maternal- monitoring. - Offer epidural anesthesia when desired by patient. - Maintain clear liquid diet. - Anticipate vaginal delivery. Gestational diabetes (diet-controlled): - Patient has gestational diabetes that is currently diet-controlled. - Reports good glycemic control. Plan: - Continue current diet management. - Monitor fingerstick blood glucose every 6 hours during labor. (2) Gestational diabetes: Status: Acute
[2025-05-23 08:56] LABS: Basophils # (Auto) 0.0 Thou/mm3 (0.0-0.2); Basophils % (Auto) 0 % (0-2.5); Eosinophils # (Auto) 0.0 Thou/mm3 (0.0-0.5); Eosinophils % (Auto) 0 % (0-10); Hematocrit 38.4 % (36.0-46.0); Hemoglobin 12.9 g/dL (12.0-16.0); Immature Granulocytes Auto 0.03 Thou/mm3 (0.00-0.00); Lymphocytes # (Auto) 2.0 Thou/mm3 (1.0-4.8); Lymphocytes % (Auto) 22 % (10-50); Mean Corpuscular HGB Conc 33.6 g/dl (31.0-37.0); Mean Corpuscular Hemoglobin 28.7 pg (25.0-35.0); Mean Corpuscular Volume 85 fL (80-100); Monocytes # (Auto) 0.4 Thou/mm3 (0.0-0.8); Monocytes % (Auto) 5 % (0-12); Neutrophils # (Auto) 6.4 Thou/mm3 (1.8-7.7); Neutrophils % (Auto) 72 % (37-80); Nucleated Red Blood Cell # 0.00 Thou/mm3 (0.00-0.00); Nucleated Red Blood Cell % 0 /100 WBC (0); Platelet Count 152 Thou/mm3 (140-440); RDW Standard Deviation 41.1 fL (36.4-46.3); Red Blood Count 4.50 Miln/mm3 (4.00-5.20); White Blood Count 8.9 Thou/mm3 (3.6-11.0)
[2025-05-23 09:35] LABS: Syphilis Nonreactive (Nonreactive)
[2025-05-23] MEDS: RINGERS LACTATED 1000 ML 1,000 ML 100 ML IV (20:10)
[2025-05-24] VITALS (184 sets, daily range): BP systolic 101–147; BP diastolic 53–86; PULSE 61–109; RESP 16–19; TEMP 36.6–37.7; O2SAT 93–100
[2025-05-24] MEDS: RINGERS LACTATED 1000 ML 1,000 ML 100 ML IV ×4 (03:32→17:52)
--- NOTE | 2025-05-24 07:35 | ESPR_ITS ---
Documentation for date of: 05/24/25 OB Labor Progress Note Pain Control Pain control: tolerating well Comments: Patient reports mild cramping. Status post Cervidil x 1 now oral Cytotec 50 mcg x 2. Last Cytotec given recently. Patient is 3-4 /75 /mid/ -2 Pelvic Exam Dilation (cm): 3-4 station: -2 Amniotic membrane status: Intact Contractions Monitor mode: External Contraction frequency: 2-4 Contraction pattern: Coupling Contraction intensity: Mild Status status: Category l Assessment and Plan Assessment: induction ongoing Comments: Will AROM patient at lunchtime. Will place IUPC's. Epidural if needed. Patient Bhutanese-speaking only and the entire physical exam and interview is conducted with a interview service online.
--- NOTE | 2025-05-24 17:45 | PD.LDPN ---
Documentation for date of: 05/24/25 OB Labor Progress Note Pain Control Pain control: tolerating well Pelvic Exam Dilation (cm): 4 Effacement (%): 70 station: -2 Amniotic membrane status: Ruptured Comments: Amniotomy performed at 1632 Contractions Monitor mode: External Contraction frequency: 3-6 Contraction pattern: Coupling Contraction intensity: Moderate Status status: Category l Assessment and Plan Assessment: induction ongoing Plan OB labor note: continuous present management Comments: Will start Pitocin at 1830.
[2025-05-24] MEDS: OXYTOCIN in NS 30 units 30 UNIT/500 ML BAG IV (19:47)
[2025-05-24] MEDS: ceFAZolin/D5W 2 GM IV 2 GM/100 ML BAG IV (21:52)
[2025-05-24] MEDS: FAMOTIDINE INJ 10 MG/ML VIAL 2 ML 20 MG IV (21:53)
--- NOTE | 2025-05-24 21:55 | PD.LDPN ---
Documentation for date of: 05/24/25 OB Labor Progress Note Pain Control Pain control: epidural Pelvic Exam Dilation (cm): 4 Effacement (%): 70 station: -2 Amniotic membrane status: Ruptured Contractions Monitor mode: Internal Contraction frequency: 3 min Contraction intensity: Moderate Status status: Category l Assessment and Plan Assessment: induction ongoing Plan OB labor note: Comments: Patient has failed to make adequate progress for greater than 5 hours. At this point patient is consented for primary low-transverse section. The risks of the procedure discussed the patient through a seafood fisherman including the risk of bleeding, infection, blood transfusion, damage to bowel, bladder, blood vessels, other organs. Prolonged hospital stay and further surgery should any above occur. All questions were answered all consents were signed.
--- NOTE | 2025-05-24 23:41 | PD.GYNPROC ---
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 Merritt the morning of 05/23/2025 for an induction of labor. Patient had an elevated 1 hour glucose and a normal hemoglobin A1c she did not have a 3-hour glucose. She was managing her diabetes with diet. Patient was 2 to 3 cm thick and high on presentation .She had Cervidil followed by 3 doses of 50 mcg Cytotec orally. She had her membranes ruptured IUPC placed and Pitocin started. The patient failed to make progress post 4 cm dilation for greater than 6 hours and a primary was called. Pre-Op diagnosis: 1. IUP at 39-3/7 weeks 2. Arrest of dilation at 4 cm 3. Maternal BMI of 38 Post-Op diagnosis: Same Anesthesia type: Spinal Procedure description: Patient had epidural during labor. This was pulled and she had a spinal placed in the OR. Fluids: crystalloid Fluid amount (mL): 800 Urine output (mL): 100 Specimen: none Implants: None Estimated blood loss (ml): 500 Findings: Liveborn male in the OA presentation with no nuchal cord and meconium. Apgars were 9 and 9 weight was 7 pounds 8 ounces. The placenta was complete spontaneous grossly normal with the velamentous insertion. Patient's uterus fallopian tubes and ovaries appeared grossly normal. Complications: none Narrative: After obtaining informed consent, the patient was brought back to the operating room and her epidural catheter removed by anesthesia. She then had a spinal placed by anesthesia. She was then prepped and draped in the dorsal supine position with a leftward tilt in a normal sterile fashion. A Wilson catheter had been inserted during the patient's labor. A Pfannenstiel skin incision was made with a scalpel, and carried down to the underlying fascia. The fascia was incised in the midline and the fascial incision extended laterally using Lamb scissors. The superior aspect of the fascia was grasped with Marium clamps, and the underlying rectus muscles dissected off using blunt and sharp dissection. This was repeated in the inferior aspect of the incision. The rectus muscle were the midline, and the peritoneum was entered bluntly with the surgeon's fingers. This was extended superiorly and inferiorly with blunt dissection in a normal sterile fashion with good visualization of the bladder. The bladder blade was inserted and the uterus was incised in low transverse fashion with the scalpel above the bladder reflection. The uterine incision was extended laterally using blunt dissection with the surgeon's fingers. The bag dumont was ruptured and copious clear fluid noted. The bladder blade was removed, and the was delivered atraumatically. The cord was clamped and cut after waiting 2 minutes for delayed cord clamping. The was handed off to the waiting pediatric staff. Cord blood was collected. Cord gases were saved. The placenta was then manually removed, and the uterus was exteriorized and cleared of all clots and debris. The uterine incision was repaired using 0 Monocryl in a running locked fashion. Excellent hemostasis was noted. The uterus was returned to the patient's abdominal cavity, and copious irrigation carried out with warm normal saline. The uterine incision was reexamined and noted to be hemostatic. After ensuring the rectus muscles were hemostatic, these were reapproximated in the midline using a running suture of 0 Monocryl. The fascia was closed with 0 Vicryl in a running fashion. The subcutaneous tissues were irrigated and found to be hemostatic. These were reapproximated using a running suture of 2-0 plain. The skin was closed with subcuticular suture 4-0 Monocryl. The patient tolerated the procedure well, sponge, lap, needle, and instrument counts were correct x 2. The patient went to the recovery area awake and in stable condition. Pathology was none. Complications were none. Of note, the patient was given IM Methergine during the case his uterus was a little boggy and TXA. Surgical staff Curt Salomon, ARYAN Diez's GEOSPATIAL DEVELOPER Operation Date: 05/24/25 23:30 <No data on this case meets the specified criteria> Diagnosis Discharge Diagnosis (1) Obesity (BMI 35.0-39.9 without comorbidity): Status: Acute (2) Supervision of high risk , unspecified, third trimester: Status: Acute Problem details: Status post primary low-transverse section for arrest of dilation at 4 cm. Problem List Completed Was Problem List Reviewed/Reconciled?: Yes
--- NOTE | 2025-05-24 23:57 | PD.LDDELS ---
Data (Pérez) Data Hx Section: No Reason for Primary Section: Arrest of dilation at 4 to 5 cm Maternal Blood Type: A Pos Rubella Titre: Positive RPR: Non-reactive Labs: Negative: RPR, Hepatitis B, HIV, Chlamydia, Gonorrhea and Group Beta Strep : 1 Term: 0 : 0 Livin Abortions: Spontaneous & Theraputic: 0 Delivery Data (Pérez) Labor Data Initiation of labor: Induction Induction/Augmentation Agent: Cytotec-PO, Pitocin and Artificial ROM ROM date: 05/24/25 ROM time: 16:32 Amniotic membrane rupture type: Artificial Amniotic fluid description: Clear Delivery Data EDC: 05/28/25 EDC calculated by:: LMP/early US confirmation Date of arrival to unit: 05/23/25 Onset of labor date: 05/24/25 Onset of labor time: 16:32 Swink delivery date: 05/24/25 Swink delivery time: 22:50 Gestational age (weeks): 38 Gestational age (days): 6 Placenta delivery date: 05/24/25 Placenta delivery time: 22:51 Delivered by: BOKEN Delivery nurse: pamella Frazier nurse: LATASHA Odell Implementation Technician at delivery: No Support person(s) at delivery: Grandmother at [facility] Delivery Method Delivery method: Low Transverse Presentation: Vertex position: OA Anesthesia Type Anesthesia Type: Spinal and Epidural Anesthesia type: Spinal Delivery Room Medications Delivery room medications: Methergine 0.2 mg IM, Pitocin 20 u IV and other (TXA) Placenta Placenta delivery description: Manual Removal Cord blood sent to lab: Yes cord blood collection: Cord Blood Type Episiotomy Episiotomy description: None EBL Estimated blood loss (ml): 500 Umbilical Cord cord description: 3 Vessels Additional Procedures See op report for further details Complications Complications: None Data (Pérez) Swink Data order: 1 Swink's gender: Male Identification band number: [id number] weight (gms): 3410 g Weight (pounds): 7 lbs and 8.3 ozs length: 50.8 cm 1 minute: 9 5 minutes: 9
[2025-05-25] VITALS (12 sets, daily range): BP systolic 100–159; BP diastolic 64–86; PULSE 58–87; RESP 16–19; TEMP 36.5–37.3; O2SAT 93–98
[2025-05-25] MEDS: RINGERS LACTATED 1000 ML 1,000 ML 999 ML IV (00:30)
[2025-05-25] MEDS: ONDANSETRON INJ 2 MG/ML INJ 2 ML 4 MG IV (01:00)
[2025-05-25] MEDS: KETOROLAC INJ 30 MG/ML VIAL IVP ×3 (01:01→14:26)
[2025-05-25] MEDS: OXYTOCIN in NS 20 units 20 UNIT/1,000 ML BAG 125 UNIT IV ×2 (01:24→08:29)
[2025-05-25] MEDS: SIMETHICONE 80 MG CHEW PO (08:25)
[2025-05-25] MEDS: DOCUSATE SOD 100 MG CAPSULE PO (08:25)
--- NOTE | 2025-05-25 09:25 | PC.NURSE ---
Dressing removed by Dr. Ferreira
--- NOTE | 2025-05-25 10:01 | PD.LDPPPRG ---
Subjective Subjective Interval history: Patient doing well overall. Pain is controlled. Surgery was late last night at 2300. She has not yet ambulated, frias in place soon to be removed. Draining yellow-orange urine. Tolerating regular diet without nausea/vomiting. No fevers/chills, no CP/SOB. Exam Vital Signs Temp Pulse Resp BP Pulse Ox O2 Del Method 97.9 F 64 18 126/72 96 Room Air 05/25/25 07:40 05/25/25 07:40 05/25/25 07:40 05/25/25 07:40 05/25/25 07:40 05/25/25 07:40 Narrative Exam General: well developed, well nourished, no acute distress, conversant Cardiac: normal heart rate Lungs: breathing without distress Abdomen: soft, post-gravid, non-tender, no rebound or guarding, pfannenstiel incision covered by dry/clean/intact prineo bandage. Incision well reapproximated. No erythema, drainage or induration. Fundus firm at u-2cm. Extremities: no pain with palpation of calves, trace edema of BLE Objective Labs 05/23/25 08:36 Assessment & Plan Problem List (1) delivery delivered: Status: Acute Assessment and plan: Genesis is a 20yo G1 nowP1 s/p uncomplicated PLTCS for arrest of dilation when undergoing IOL for A1GDM in the setting of BMI 38, doing well on POD 1. Vitals wnl, benign exam. Hemodynamically stable with no evidence of infection. Initial Hgb 12.9. Patient was noted to have some oozing from site of epidural and then spinal, so TXA was given after delivery along with methergine and IV pitocin for mild atony. Plan: -Continue routine /post-op care -Due to void within 6 hours after frias removal -Regular diet -Toradol 30mg IV Q6hr x4 doses, then motrin 800mg PO Q8hr with norco 5/325mg PO Q6hr prn pain -Encourage ambulation and use of IS -Possible discharge home tomorrow if meeting all milestones (2) Arrest of dilation, delivered, current hospitalization: Status: Acute (3) Obesity (BMI 35.0-39.9 without comorbidity): Status: Acute (4) Supervision of high risk , unspecified, third trimester: Problem details: Status post primary low-transverse section for arrest of dilation at 4 cm. Status: Acute Time Spent With Patient Time: Total time spent is greater than 50% in coordination of care (as documented) at patient's floor/unit and/or counseling patient:
[2025-05-25 17:34] LABS: Basophils # (Auto) 0.0 Thou/mm3 (0.0-0.2); Basophils % (Auto) 0 % (0-2.5); Eosinophils # (Auto) 0.0 Thou/mm3 (0.0-0.5); Eosinophils % (Auto) 0 % (0-10); Hematocrit 33.5 % (36.0-46.0); Hemoglobin 11.1 g/dL (12.0-16.0); Immature Granulocytes Auto 0.07 Thou/mm3 (0.00-0.00); Lymphocytes # (Auto) 2.0 Thou/mm3 (1.0-4.8); Lymphocytes % (Auto) 13 % (10-50); Mean Corpuscular HGB Conc 33.1 g/dl (31.0-37.0); Mean Corpuscular Hemoglobin 29.1 pg (25.0-35.0); Mean Corpuscular Volume 88 fL (80-100); Monocytes # (Auto) 1.3 Thou/mm3 (0.0-0.8); Monocytes % (Auto) 8 % (0-12); Neutrophils # (Auto) 12.1 Thou/mm3 (1.8-7.7); Neutrophils % (Auto) 78 % (37-80); Nucleated Red Blood Cell # 0.00 Thou/mm3 (0.00-0.00); Nucleated Red Blood Cell % 0 /100 WBC (0); Platelet Count 132 Thou/mm3 (140-440); RDW Standard Deviation 42.7 fL (36.4-46.3); Red Blood Count 3.81 Miln/mm3 (4.00-5.20); White Blood Count 15.5 Thou/mm3 (3.6-11.0)
[2025-05-25] MEDS: IBUPROFEN TAB 400 MG TABLET 800 MG PO (22:32)
[2025-05-26 03:46] VITALS: BP 104/67; PULSE 77; RESP 16; TEMP 36.9; O2SAT 98
[2025-05-26] MEDS: IBUPROFEN TAB 400 MG TABLET 800 MG PO (05:54)
[2025-05-26 08:00] VITALS: BP 115/73; PULSE 91; RESP 16; TEMP 36.7; O2SAT 98
[2025-05-26] MEDS: DOCUSATE SOD 100 MG CAPSULE PO (08:24)
[2025-05-26] MEDS: DIPHTH,PERTUSS(ACELL),TET VAC 0.5 ML SYR- ADULT IMi (08:25)
[2025-05-26] MEDS: SIMETHICONE 80 MG CHEW PO (08:25)
[2025-05-26 11:00] VITALS: BP 104/63; PULSE 73; RESP 18; TEMP 37.1; O2SAT 98
--- NOTE | 2025-05-26 11:28 | ESDS_ITS ---
DS: Providers Provider Date of admission: 05/23/25 08:04 Primary care physician: Physician No Primary/Family Admitting Provider: Quoc Cristobal MD Attending Provider on Admission: Franca Ferreira MD Consults: 05/25/25 00:04 Referral Routine Comment: Attending Provider on DC: Franca Ferreira MD Discharging Provider: Franca Ferreira MD DS: Diagnosis Discharge Diagnosis (1) Arrest of dilation, delivered, current hospitalization: Status: Acute (2) delivery delivered: Status: Acute (3) Obesity (BMI 35.0-39.9 without comorbidity): Status: Acute (4) Supervision of high risk , unspecified, third trimester: Status: Acute Problem List Completed Was Problem List Reviewed/Reconciled?: Yes Summary/Hosp Course Brief History: Genesis Liu presents with significant discomfort, ongoing vaginal bleeding for 2 days, headaches, and cramping at 39 weeks and 2 days gestation. She is a presenting for induction of labor. Despite these symptoms, she reports adequate movements. The patient denies any visual changes or epigastric pain. Her has been significant for severe hyperemesis and gestational diabetes, which is currently diet-controlled with reported good glycemic control. Her due date was initially set for June 02 based on early ultrasound but was later updated to May 28, 2025, based on her last menstrual period. The patient has been receiving care at the [facility]. Her has been closely monitored, with labs reviewed and reported as reassuring. The patient's NIPT test results were negative, indicating a male fetus. She is a 37-year-old female with an obstetric history of A0 L0. She is currently on a clear liquid diet and has been given Cervidil for cervical ripening. ROS: Positive for discomfort, headaches, vaginal bleeding, and cramping. Negative for visual changes and epigastric pain, limited to pertinent complaints. - labs: - Hepatitis B: Negative - Hepatitis C: Negative - VDRL/RPR: Non-reactive - Rubella: Immune - Blood group: A-positive - Antibody screen: Negative - HIV: Negative - Gonorrhea: Negative - Chlamydia: Negative - NIPT: Negative, male fetus - Ultrasound (TueMay 23 2025): - Estimated weight: 3555 grams - Survey of overall anatomy: Within normal limits - presentation: Cephalic --- Genesis is a 20yo G1 now P1 s/p uncomplicated PLTCS for arrest of dilation when undergoing IOL for A1GDM in the setting of BMI 38, doing well on POD 2. Patient was noted to have some oozing from site of epidural and then spinal, so TXA was given after delivery along with methergine and IV pitocin for mild atony. She has had an uncomplicated post-operative course, meeting all milestones and feels ready for discharge home. She is ambulating without lightheadedness, tolerating regular diet no n/v, spontaneously voiding without issue. She has no chest pain or shortness of breath. No fevers or chills. Pain well controlled. Vitals normal, benign exam. Hemodynamically stable with no evidence of infection. Post- op Hgb 11.1 from 12.9. Peripartum Data Delivery Method: Low Transverse Episiotomy Description: None Procedures: Procedures Operation Date: 05/24/25 22:19 Actual Procedure Side Surgeon p in OR Bilateral Priya Jennings ([facility])MD Status at Discharge Functional status at discharge: independent ambulation Overall status at discharge: patient is back to baseline Time Spent with Patient Time attestation: Total time spent providing and/or coordinating discharge services: Exam Vital Signs Temp Pulse Resp BP Pulse Ox O2 Del Method 98.1 F 91 16 115/73 98 Room Air 05/26/25 08:00 05/26/25 08:00 05/26/25 08:00 05/26/25 08:00 05/26/25 08:00 05/26/25 08:00 Narrative Exam General: well developed, well nourished, no acute distress, conversant Cardiac: normal heart rate Lungs: breathing without distress Abdomen: soft, post-gravid, non-tender, no rebound or guarding, pfannenstiel incision covered by dry/clean/intact prineo bandage. Incision well reapproximated. No erythema, drainage or induration. Fundus firm at u-2cm. Extremities: no pain with palpation of calves, trace edema of BLE Discharge Plan Plan Patient Disposition: HOME (Self Care) Patient condition on transfer: Stable Prescriptions/Referrals Prescriptions/Med Rec: New hydrocodone-acetaminophen 5-325 mg Tablet 1 tab PO Q6H MDD 4 tablets PRN (Reason: Patient rated pain 7 to 8) 7 Days Qty: 10 0RF docusate sodium 100 mg Capsule 100 mg PO BID 10 Days Qty: 20 0RF ibuprofen 800 mg tablet 800 mg PO Q8HR 10 Days Qty: 30 0RF Continued omeprazole 40 mg capsule,delayed release(DR/EC) 40 mg PO QDAY 30 Days Qty: 30 4RF Vitamin Plus Low Iron 27 mg iron- 1 mg tablet 1 tab PO QDAY 90 Days Qty: 90 6RF Discontinued ferrous sulfate 300 mg (60 mg iron)/5 mL liquid 300 mg PO QDAY (DME) lancets 21 gauge misc See Rx Instructions .MEDSUPPLY Qty: 100 0RF Rx Instructions: As directed, 4 times a day (DME) Blood Glucose Test Strip See Rx Instructions .MEDSUPPLY Qty: 100 0RF Rx Instructions: As directed, 4 times a day (DME) blood-glucose meter Kit See Rx Instructions .MEDSUPPLY Qty: 1 0RF Rx Instructions: As directed, 4 times a day Referrals: No Primary/Family,Physician [Primary Care Provider] Patient/Caregiver Discharge Instructions Discharge Activity: activity as tolerated and other Other Discharge Activity Instructions:: vaginal rest and no heavy lifting more than 10 pounds for 6 weeks. keep incision clean and dry, do not submerge. no driving while taking narcotic. Descanzo vaginal no levantar mas de 10 libras por 6 semanas, mantener palencia incision limpia y seca no subergir en agua, no manejar mientras que audrey tomando narcoticos Other Discharge Diet Instructions: regular Education Materials: Breast Care After , C Section Dc Print Language: Czech Activity Restrictions/Additional Instructions: follow up with Dr. Cristobal in 1 to 2 weeks for incision check, call clinic for appointment Stand Alone Forms: Chelsea Award Info., Patient Portal Info Letter Discharge Order Discharge Orders: Discharge (Routine); Ordered 05/26/25 Ordered By: Franca Ferreira Planned Discharge Date 05/26/25
== END 2025-05-26 13:45 | disposition home or self-care (01) | DRG 540 ==
LOC: S4SX 05-24 21:51 → S4NX 05-24 22:21
PROVIDERS: Obstetrics & Gynecology; Admitting Provider Obstetrics & Gynecology; Visit Provider Obstetrics & Gynecology
PROC: (CPT 59514; principal; 2025-05-24 23:15)
DX: O62.0 Primary inadequate contractions (principal); O24.420 Gestational diabetes mellitus in childbirth, diet controlled; Z37.0 Single live birth; Z3A.39 39 weeks gestation of pregnancy; O99.214 Obesity complicating childbirth; O21.0 Mild hyperemesis gravidarum
CPT/HCPCS: 36415; 76805; 85025; 86780; 86850; 86900; 86901; 90715; A4217; A4314; A4649; J0689; J1100; J1885; J2210; J2274; J2371; J2405; J2590; J2795; J3010; J3490; J7120; A9270; J2270

== ENCOUNTER 2025-06-07 22:45 | Inpatient (IN) | payer MEDICAID, SELFPAY ==
[2025-06-07 22:46] VITALS: BMI 38.4
[2025-06-07 23:01] VITALS: BP 133/84; PULSE 79; RESP 19; TEMP 36.6; O2SAT 97
--- NOTE | 2025-06-07 23:06 | XR_ITS ---
EXAMINATION: PA chest single view TECHNIQUE: Upright PA chest single view Onset chest pain today FINDINGS: Normal heart size. Lungs are clear. Osseous structures are intact IMPRESSION: No active disease
--- NOTE | 2025-06-07 23:06 | EKG_ITS ---
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
[2025-06-07] MEDS: FAMOTIDINE 20 MG TABLET 40 MG PO (23:15)
[2025-06-07 23:31] LABS: Basophils # (Auto) 0.1 Thou/mm3 (0.0-0.2); Basophils % (Auto) 1 % (0-2.5); Eosinophils # (Auto) 0.1 Thou/mm3 (0.0-0.5); Eosinophils % (Auto) 1 % (0-10); Hematocrit 38.8 % (36.0-46.0); Hemoglobin 12.9 g/dL (12.0-16.0); Immature Granulocytes Auto 0.04 Thou/mm3 (0.00-0.00); Lymphocytes # (Auto) 2.5 Thou/mm3 (1.0-4.8); Lymphocytes % (Auto) 26 % (10-50); Mean Corpuscular HGB Conc 33.2 g/dl (31.0-37.0); Mean Corpuscular Hemoglobin 28.8 pg (25.0-35.0); Mean Corpuscular Volume 87 fL (80-100); Monocytes # (Auto) 0.6 Thou/mm3 (0.0-0.8); Monocytes % (Auto) 7 % (0-12); Neutrophils # (Auto) 6.1 Thou/mm3 (1.8-7.7); Neutrophils % (Auto) 65 % (37-80); Nucleated Red Blood Cell # 0.00 Thou/mm3 (0.00-0.00); Nucleated Red Blood Cell % 0 /100 WBC (0); Platelet Count 327 Thou/mm3 (140-440); RDW Standard Deviation 39.9 fL (36.4-46.3); Red Blood Count 4.48 Miln/mm3 (4.00-5.20); White Blood Count 9.4 Thou/mm3 (3.6-11.0)
[2025-06-07 23:46] LABS: Collection Type, Urine Clean Catch
[2025-06-07 23:47] LABS: D-Dimer 2300 ng/mL (<600)
[2025-06-07 23:48] LABS: INR 1.1 (0.9-1.3); Partial Thromboplastin Time 27.1 Seconds (22.0-36.0); Prothrombin Time 11.4 Seconds (9.0-12.2)
--- NOTE | 2025-06-07 23:50 | XR_ITS ---
Examination: CTA chest with intravenous contrast 2-D reconstructions 3-D reconstructions, vascular Date and time of exam: June 08, 2025, 0116 hours INDICATIONS: 2 weeks with chest back pain and shortness of breath today, clinical diagnosis pulmonary embolus CTDI: vol (mGy) 17.1 DLP: (mGycm) 459 Technique: Multiple axial sections of the thorax have been obtained. 3 mm slice thickness, from below the hemidiaphragms to above the apices of the lungs. Mediastinal and lung density settings have been obtained. 2-D sagittal and coronal reconstructions. 3-D angiographic renderings, 3-D volume renderings, 3D post processing, vascular maximum intensity projections obtained. Contrast administered is 100 cc Isovue-370 intravenous. Low dose protocols were performed. One or more of the following dose reduction techniques were used; automated exposure control, adjustment of the mA and/or KV according to patient size, use of iterative reconstruction technique. Findings: No thoracic aortic aneurysmal dilatation or dissection Pulmonary artery segments are not enlarged. No pulmonary artery emboli No mediastinal lymphadenopathy. No pneumonia or pulmonary edema No pleural disease Mild prominence left atrium The osseous structures are intact IMPRESSION: No thoracic aortic aneurysmal dilatation Negative for pulmonary artery emboli. No pneumonia, pulmonary edema or pleural disease
[2025-06-07 23:54] LABS: Bilirubin,Urine Negative (Negative); Blood,Urine Negative (Negative); Clarity,Urine Clear (Clear/Hazy); Color,Urine Yellow (Lt Yel-Yel); Culture Indicated,Urine Not Indicated; Glucose, Urine Negative (Negative); Ketones,Urine Negative (Negative); Leukocyte Esterase,Urine Positive (Negative); Nitrite,Urine Negative (Negative); PH,Urine 6.5 (5.0-7.0); Protein,Urine Negative (Neg - Trace); RBC,Urine 2 /hpf (0-3); Specific Gravity,Urine 1.021 (1.001-1.035); Squamous Epithelial Cell,Urine < 1 /hpf (0-5); Urobilinogen,Urine Negative mg/dL (0.0-1.0); WBC,Urine 4 /hpf (0-5)
--- NOTE | 2025-06-07 23:57 | PD.EDSOB ---
ED SOB =RME/HPI General Chief Complaint: Back Pain/Injury Stated Complaint: BACK PAIN SINCE 1700 Time Seen by Provider: 06/07/25 23:06 Arrival date/time: 06/07/25 22:45 20F with recent presents to ED with 1 day of upper back pain and SOB, especially when when taking a deep breath. Patient denies fall/trauma, URI symptoms, and dysuria. Limitations: no limitations Related Data Home Medications ?Medication ?Instructions ?Recorded ?Confirmed No Known Home Medications 06/08/25 06/08/25 Allergies Allergy/AdvReac Type Severity Reaction Status Date / Time No Known Allergies Allergy Verified 06/07/25 22:46 Review of Systems Review of Systems Systems Reviewed: All systems reviewed, normal except as documented Cardiovascular Cardiovascular: Reports dyspnea Respiratory Respiratory: Reports as per HPI and Reports dyspnea Musculoskeletal Musculoskeletal: Reports as per HPI and Reports back pain Past Medical History Past Medical History NEUROLOGIC: Negative Cerebrovascular Accident, Transient Ischemic Attacks (TIA), Dementia, Alzheimer's Disease, Parkinson's Disease, Brain Tumor, Meningitis, Seizures, Epilepsy, Multiple Sclerosis, Cerebral Palsy, Amyotrophic Lateral Sclerosis (ALS/Esperanza Gehrig's), Guillain-[place] Syndrome, Spina Bifida, Paralysis, Peripheral Neuropathy, Teixeira's Palsy, Subdural Hematoma, Migraine, Head Trauma, Spinal Cord Injury or Traumatic Brain Injury CARDIAC: Negative Cardiac Disorders, Myocardial Infarction, Cardiac Arrhythmia, Atrial Fibrillation, Angina, Heart Murmur, Coronary Artery Disease, Atherosclerotic Heart Disease, Peripheral Vascular Disease, Hypercholesterolemia, Aneurysm, Congestive Heart Failure, Congenital Heart Disease, Valvular Heart Disease, Rheumatic Fever, Cardiomyopathy, Edema, Pericarditis, Cellulitis, Hypertension, Hypotension or Varicose Veins RESPIRATORY: Negative Chronic Obstructive Pulmonary Disease (COPD), Asthma, Bronchitis, Emphysema, Pneumonia, Pulmonary Fibrosis, Tuberculosis, Pulmonary Embolism, Pulmonary Edema, Sleep Apnea, CPAP Dependent, Respiratory Aspiration, Dyspnea, Orthopnea, Cough, Sputum Production, Wheezing, Chest Deformities, Smoking, Smoking Cessation Counseling, Smoking Exposure, Tobacco Use, Clubbing, Exposure to Respiratory Irritants or Intubation GASTROINTESTINAL: Negative Gastrointestinal Disorders, Liver Cancer, Hepatitis, Cirrhosis, Pancreatic Cancer, Pancreatitis, Celiac Disease, Gall Bladder Disease, Gastrointestinal Bleed, Esophageal Varices, Justin's Esophagus, Colitis, Ulcerative Colitis, Diverticulitis, Diverticulosis, Ulcer, Colorectal Cancer, Irritable Bowel, Crohn's Disease, Obstructive Bowel, Hiatal Hernia, Hemorrhoids, Gastroesophageal Reflux Disease or Obesity GENITOURINARY: Negative Genitourinary Disorders, Renal Disease, Kidney Stones, Polycystic Kidney Disease, Neurogenic Bladder, Inguinal Hernia, Dialysis, Prostate Cancer or Benign Prostatic Hyperplasia REPRODUCTIVE: Negative Breast Cancer, Endometriosis, Fibroids, Genital Herpes, Gonorrhea, Pelvic Inflammatory Disease, Hx Polycystic Ovarian Syndrome, Previous Pregnancies, Syphilis, Testicular Cancer or Uterine Prolapse MUSCULOSKELETAL: Negative Musculoskeletal Disorders, Muscular Dystrophy, Myasthenia Gravis, Marfan's Syndrome, Bone Cancer, Arthritis, Rheumatoid Arthritis, Osteoporosis, Degenerative Disk Disease, Gout, Scoliosis, Carpal Tunnel Syndrome, Fibromyalgia, Fractures, Degenerative Joint Disease, Osteomyelitis or Poliovirus ENT: Negative Cataracts, Glaucoma, Blind, Retinal Detachment, Macular Degeneration, Ear Infection, Deafness, Head Trauma or Eye Prosthesis ENDOCRINE: Positive Diabetes Mellitus Type 2 (parents of pt); Negative Diabetes Mellitus Type 1, Hypoglycemia, Ching's Syndrome, Art's Disease, Hyperthyroidism, Hypothyroidism, Thyroid Cancer, Parathyroid Disease, Pituitary Disease, Systemic Lupus Erythematosus, Syndrome of Inappropriate Antidiuretic Hormone (SIADH), Adrenal Disease or Graves' Disease HEMATOLOGIC: Positive Anemia and Sickle Cell Disease (mother); Negative Blood Disorders, Leukemia, Hemophilia, Thalassemia or Clotting Problems PSYCHO/SOCIAL: Positive Anxiety (as a teenager on medication); Negative Schizophrenia, Recreational Drug Use, Bipolar Disorder, Depression, Behavior Problems, Self-Mutilation, Attention Deficit Disorder, Attention Deficit Hyperactivity Disorder, Depression, Post Traumatic Stress Disorder or Eating Disorder OTHER HISTORY: Negative Hospitalization, Autoimmune Disease, Down Syndrome, Autism, Developmental Delay, Cosmetic Surgery, Shingles, Falls, Blood Transfusions, Blood Transfusion Reaction, Anesthesia Reactions, Organ Transplant, Chemotherapy, Radiation Therapy, Hyperbaric Therapy, MRSA, VRSA, Vancomycin-Resistant Enterococci, Human Immunodeficiency Virus (HIV), Chicken Pox, Measles, Mumps, Rubella ([place] Measles), Pertussis, Hx Klebsiella Pneumoniae Carbapenemase (KPC)-Producing Bacteria, Clostridium Difficile, Hepatitis A, Hepatitis B, Hepatitis C, Communicable Disease, Cancer, Breast Cancer, Cervical Cancer, Colorectal Cancer, Lung Cancer, Ovarian Cancer, Prostate Cancer or Testicular Cancer Family History FAMILY HISTORY: Negative Family Psychiatric Problems, Family Respiratory Disorders, Family Cardiac Disorders, Family Gastrointestinal Problems, Family Cancer, Family Surgery or Family Anesthesia Reaction Surgical History SURGICAL: Negative Coronary Artery Bypass Graft, Valve Replacement, Pacemaker, Carotid Endarterectomy, Thyroidectomy, Ear Surgery, Abdominal Surgery, Nephrectomy, Joint Replacement, Neurologic Surgery, Lumpectomy, Hysterectomy, Section or Organ Transplant Social History SMOKING STATUS: Never smoker SECOND HAND EXPOSURE: No ED Exam General Limitations: Present no limitations General appearance: Present alert and in no apparent distress Head Head exam: Present atraumatic Neck Neck exam: Present normal inspection, full ROM and trachea midline Chest Chest inspection: Present normal inspection and symmetric chest wall rise Back Exam Back exam: Present normal inspection and full ROM Neurological Exam Neurological exam: Present alert and oriented X3 Psychiatric Psychiatric exam: Present normal affect and normal mood Skin Skin exam: Present warm, dry, intact and normal color Course Quality Measures none Orders Category Date Time Status CT Screening NOW Care 06/07/25 23:[address] Screening NOW Care 06/08/25 00:22 Completed EKG (ED ONLY) *Do not use* NOW Care 06/07/25 23:06 Completed Insert IV NOW Care 06/07/25 23:50 Active MRI Screening NOW Care 06/08/25 03:[address] abdomen pelvis w con Stat Exams 06/08/25 00:[address] angio chest Stat Exams 06/07/25 23:50 Completed EKG (ED Only) Stat Exams 06/07/25 23:06 Draft MR MRCP Stat Exams 06/08/25 Completed US gall bladder Stat Exams 06/08/25 00:22 Completed XR chest 1V portable Stat Exams 06/07/25 23:06 Completed BNP [B-Type Natriuretic Peptide] Stat Lab 06/08/25 02:56 Completed Blood Culture (Lab) Stat Lab 06/08/25 02:56 Results CBC Stat Lab 06/07/25 23:23 Completed Comprehensive Metabolic Panel Stat Lab 06/07/25 23:23 Completed D-Dimer Stat Lab 06/07/25 23:23 Completed Drug Screen,Urine Stat Lab 06/07/25 23:41 Completed ESR [Sed Rate (ESR)] Stat Lab 06/08/25 02:56 Completed Lactate (Lactic Acid) Stat Lab 06/08/25 02:56 Completed Lipase Stat Lab 06/07/25 23:23 Completed Liver Panel Stat Lab 06/08/25 02:56 Completed Partial Thromboplastin Time Stat Lab 06/07/25 23:23 Completed Procalcitonin Stat Lab 06/08/25 02:56 Completed Prothrombin Time with INR Stat Lab 06/07/25 23:23 Completed Triglycerides Stat Lab 06/08/25 00:29 Completed Troponin I Stat Lab 06/07/25 23:23 Completed Troponin I Stat Lab 06/08/25 02:56 Completed Urinalysis, C/S if Indicated Stat Lab 06/07/25 23:41 Completed Famotidine [Pepcid] Med 06/07/25 23:07 Discontinued 40 mg PO X1 ONE HYDROcodone*/APAP 5/325 [[place] 5/325] Med 06/08/25 09:48 Discontinued 1 tab PO X1 ONE Piper/Tazo 3.375 gm Premix [Zosyn] Med 06/08/25 02:53 Discontinued 3.375 gm in 50 ml IV X1 Ringers Lactated 1000 ml [Lactated Ringers] 1,000 ml Med 06/08/25 00:40 Discontinued IV 250 mls/hr Vital Signs Vital signs: Vital Signs Temperature 97.9 F 06/07/25 23:01 Pulse Rate 79 06/07/25 23:01 Respiratory Rate 19 06/07/25 23:01 Blood Pressure 133/84 H 06/07/25 23:01 Pulse Oximetry (%) 97 06/07/25 23:01 Oxygen Delivery Method Room Air 06/07/25 23:01 O2 at 97% on RA and WNLs Shortness of Breath / Dyspnea MDM Narrative MDM Narrative:: 20F with recent presents to ED with 1 day of upper back pain and SOB, especially when when taking a deep breath. Patient denies fall/trauma, URI symptoms, and dysuria. Physical exam reveals clear lungs and normal WOB. No back tenderness. Patient is afebrile, calm, and alert. EKG is NSR. CXR unremarkable. Normal inital trop. D-dimer elevated. CMP unremarkable except for mildly elevated LFTs, but normal bili. Lipase significantly elevated. Triglycerides normal. Coags normal. UA/tox normal. Telerad CT angio shows no PE, but possibly dilated L atrium (likely physiologic from ). BNP normal. Repeat trop also normal. Telerad CT ab/pelvis shows pancreatitis with possible cholecystitis (but Telerad US states no signs of cholecystitis with normal CBD). There is also a large lower anterior ab wall fluid collection, possibly an abscess. Finally, there appears to be gastritis, which is likely why the Pepcid improved symptoms. Upon reassessment, no RUQ, epigastric, or lower ab tenderness. In addition, no discharge, redness, or swelling around site. Repeat LFTs show increase overall and there is now bili elevation. Procal/lactate normal. ESR/CRP mildly elevated. Care signed out to Dr. Dawn pending MRCP and dispo. Patient eventually admitted. Patient data External records reviewed:: [facility] previous records Clinical information provided by:: patient Social determinants that could affect healthcare access:: none Patient has the following chronic illnesses:: none How is presenting disease/condition affected by chronic disease/condition?: no chronic disease Evaluation data The following diagnostics were reviewed and interpreted by me:: lab results, radiology exam(s) and EKG tracing(s) Lab and/or radiology exams considered but not ordered:: ordered Interpretation Summary: above Medications / Prescriptions Medications or Prescriptions considered but not ordered:: ordered Medication administrations:: Medication Administration History Acetaminophen (Acetaminophen 325 Mg Tablet) 650 mg PO Q6H PRN; Protocol PRN Reason: PAIN OR FEVER > 101 Stop: 07/08/25 12:59 Last Admin: 06/09/25 15:55 Dose: 650 mg Documented By: SUNSHINE Hydrocodone Bitart/Acetaminophen (Hydrocodone/Apap 5/325 Tablet) 1 tab PO Q4HR PRN PRN Reason: PAIN SCALE 4-6 (Moderate Stop: 06/13/25 12:59 Last Admin: 06/11/25 18:06 Dose: 1 tab Documented By: Admin: 06/09/25 21:02 Dose: 1 tab Documented By: Admin: 06/09/25 07:53 Dose: 1 tab Documented By: Admin: 06/08/25 16:43 Dose: 1 tab Documented By: MARTY Enoxaparin Sodium (Enoxaparin Sod Inj 40 Mg/0.4 Ml Syringe) 40 mg SC QDAY SINDHU On Hold: 06/10/25 11:25 Stop: 06/23/25 08:59 Last Admin: 06/09/25 08:18 Dose: 40 mg Documented By: SUNSHINE Famotidine (Famotidine 20 Mg Tablet) 20 mg PO QDAY SINDHU Stop: 07/09/25 08:59 Last Admin: 06/11/25 08:55 Dose: Not Given Documented By: MARTY Non-Admin Reason: NPO Admin: 06/10/25 08:16 Dose: 20 mg Documented By: Admin: 06/09/25 08:18 Dose: 20 mg Documented By: SUNSHINE Lactated Ringer's (Lactated Ringers) 1,000 mls @ 100 mls/hr IV .Q10H SINDHU Stop: 07/09/25 08:14 Last Admin: 06/11/25 02:19 Dose: 100 mls/hr Documented By: Infusion: 06/10/25 18:16 Dose: Infused Documented By: Admin: 06/10/25 08:16 Dose: 100 mls/hr Documented By: Infusion: 06/10/25 08:15 Dose: Infused Documented By: Admin: 06/09/25 22:15 Dose: 100 mls/hr Documented By: Infusion: 06/09/25 21:55 Dose: Infused Documented By: Admin: 06/09/25 11:55 Dose: 100 mls/hr Documented By: Infusion: 06/09/25 11:55 Dose: Infused Documented By: Admin: 06/09/25 08:17 Dose: 100 mls/hr Documented By: SUNSHINE Morphine Sulfate (Morphine Sulf Inj 4 Mg/Ml Vial) 2 mg IVP Q4HR PRN PRN Reason: PAIN SCALE 7-10 (Severe Stop: 06/13/25 12:59 Ondansetron HCl (Ondansetron Inj 2 Mg/Ml Inj 2 Ml) 4 mg IVP Q6H PRN; Protocol PRN Reason: NAUSEA OR VOMITING Stop: 07/08/25 12:59 Polyethylene Glycol (Polyethylene Glycol 17 Gm Packet) 17 gm PO QDAY PRN PRN Reason: CONSTIPATION Stop: 07/10/25 08:59 Last Admin: 06/09/25 13:24 Dose: 17 gm Documented By: SUNSHINE Sennosides (Senna Tablet) 1 tab PO QDAY SINDHU; Protocol Stop: 07/09/25 08:59 Last Admin: 06/11/25 08:55 Dose: Not Given Documented By: MARTY Non-Admin Reason: NPO Admin: 06/10/25 08:16 Dose: 1 tab Documented By: Admin: 06/09/25 08:18 Dose: 1 tab Documented By: SUNSHINE Discontinued Medications Hydrocodone Bitart/Acetaminophen (Hydrocodone/Apap 5/325 Tablet) 1 tab PO X1 ONE Stop: 06/08/25 09:49 Last Admin: 06/08/25 09:53 Dose: 1 tab Documented By: DB Bupivacaine HCl (Bupivacaine Mpf 0.5% 30 Ml Vial) Confirm Administered Dose 30 ml .ROUTE .[facility] ONE Stop: 06/11/25 11:18 Dexamethasone Sodium Phosphate (Dexamethasone Sod Phos Inj 10 Mg/Ml Vial) Confirm Administered Dose 10 mg .ROUTE .[facility] ONE Stop: 06/11/25 11:30 Enoxaparin Sodium (Enoxaparin Sod Inj 30 Mg/0.3 Ml Syringe) 30 mg SC X1 ONE Stop: 06/10/25 11:27 Last Admin: 06/10/25 12:36 Dose: 30 mg Documented By: VL Famotidine (Famotidine 20 Mg Tablet) 40 mg PO X1 ONE Stop: 06/07/25 23:08 Last Admin: 06/07/25 23:15 Dose: 40 mg Documented By: BD Fentanyl Citrate (Fentanyl Cit Inj 50 Mcg/Ml Amp 2ml) Confirm Administered Dose 100 mcg .ROUTE .[facility] ONE Stop: 06/11/25 11:30 Fentanyl Citrate (Fentanyl Cit Inj 50 Mcg/Ml Amp 2ml) 25 mcg IVP Q5M PRN; Protocol PRN Reason: PAIN SCALE 7-10 (Severe Stop: 06/11/25 14:10 Fentanyl Citrate (Fentanyl Cit Inj 50 Mcg/Ml Amp 2ml) 25 mcg IVP Q5M PRN; Protocol PRN Reason: PAIN SCALE 4-6 (Moderate Stop: 06/11/25 14:10 Fentanyl Citrate (Fentanyl Cit Inj 50 Mcg/Ml Amp 2ml) 25 mcg IVP Q5M PRN; Protocol PRN Reason: PAIN SCALE 1-3 (mild Stop: 06/11/25 14:11 Hydromorphone HCl (Hydromorphone Inj 2 Mg/Ml Vial) Confirm Administered Dose 2 mg .ROUTE .[facility] ONE Stop: 06/11/25 11:58 Lactated Ringer's (Lactated Ringers) 1,000 mls @ 250 mls/hr IV .Q4H ONE Stop: 06/08/25 04:39 Last Infusion: 06/08/25 05:30 Dose: Infused Documented By: Admin: 06/08/25 00:49 Dose: 250 mls/hr Documented By: IRA Piperacillin/Tazobactam/Dextrose (Zosyn) 3.375 gm in 50 mls @ 100 mls/hr IV X1 ONE; Protocol Stop: 06/08/25 03:22 Last Infusion: 06/08/25 03:58 Dose: Infused Documented By: Admin: 06/08/25 03:27 Dose: 100 mls/hr Documented By: WALTER Lactated Ringer's (Lactated Ringers) 1,000 mls @ 250 mls/hr IV .Q4H SINDHU Stop: 07/08/25 12:59 Last Admin: 06/09/25 05:44 Dose: 250 mls/hr Documented By: Infusion: 06/09/25 05:44 Dose: Infused Documented By: Admin: 06/09/25 01:52 Dose: 250 mls/hr Documented By: Infusion: 06/09/25 01:38 Dose: Infused Documented By: Admin: 06/08/25 21:38 Dose: 250 mls/hr Documented By: Infusion: 06/08/25 20:43 Dose: Infused Documented By: Admin: 06/08/25 16:43 Dose: 250 mls/hr Documented By: Infusion: 06/08/25 16:43 Dose: Infused Documented By: Admin: 06/08/25 13:20 Dose: 250 mls/hr Documented By: BD Piperacillin Sod/Tazobactam (Sod 4.5 gm/ Sodium Chloride) 100 mls @ 200 mls/hr IV Q8HR [facility]; Protocol Stop: 06/17/25 13:59 Last Admin: 06/11/25 14:16 Dose: Not Given Documented By: MARTY Non-Admin Reason: Not In Room Admin: 06/11/25 05:17 Dose: 200 mls/hr Documented By: Infusion: 06/10/25 22:30 Dose: Infused Documented By: Admin: 06/10/25 22:00 Dose: 200 mls/hr Documented By: Infusion: 06/10/25 15:25 Dose: Infused Documented By: Admin: 06/10/25 14:55 Dose: 200 mls/hr Documented By: MARCELLE Acetaminophen (Ofirmev Inj) Confirm Administered Dose 100 mls @ ud IV .STK-MED ONE Stop: 06/11/25 11:30 Lidocaine HCl (Lidocaine Inj Pf 1% 2 Ml Vial) Confirm Administered Dose 2 ml .ROUTE .STK-MED ONE Stop: 06/11/25 11:30 Midazolam HCl (Midazolam Inj 1 Mg/Ml Vial 2 Ml) Confirm Administered Dose 2 mg .ROUTE .STK-MED ONE Stop: 06/11/25 11:30 Ondansetron HCl (Ondansetron Inj 2 Mg/Ml Inj 2 Ml) Confirm Administered Dose 4 mg .ROUTE .STK-MED ONE Stop: 06/11/25 11:30 Ondansetron HCl (Ondansetron Inj 2 Mg/Ml Inj 2 Ml) 4 mg IVP X1 ONE Stop: 06/11/25 12:11 Last Admin: 06/11/25 13:20 Dose: 4 mg Documented By: DI Propofol (Propofol Inj 10 Mg/Ml Vial 20 Ml) Confirm Administered Dose 200 mg IV .STK-MED ONE Stop: 06/11/25 11:30 Rocuronium Cato (Rocuronium Inj 10 Mg/Ml Vial 10 Ml) Confirm Administered Dose 100 mg .ROUTE .STK-MED ONE Stop: 06/11/25 11:30 Sugammadex Sodium (Sugammadex Inj 100 Mg/Ml 2ml Vial) Confirm Administered Dose 400 mg .ROUTE .STK-MED ONE Stop: 06/11/25 12:10 above Consultations Consultation(s) initiated? (list below): Yes Diagnosis Shortness of Breath Differential Diagnosis: acute exacerbation of chronic obstructive airways disease, congestive heart failure, community acquired pneumonia, asthma with exacerbation, pulmonary embolism and other (back pain, UTI, pyelo, pancreatitis, cholecystitis, ab wall abscess) Most likely diagnosis given after review of the tests above:: pancreatitis Admission Indicated Admission indicated?: not indicated Admission Request Was there a request for admission?: No Disposition Plan Disposition Plan: Admit Discharge Plan Plan Patient Disposition: Admit Acute Care w/in Hospital Problem List Clinical Impression: Pancreatitis Patient/Caregiver Discharge Instructions Other Activity Instructions:: You may resume showering in 2 days, on 06/13 It is okay to get incisions wet at that time, pat them dry after Avoid bathing or swimming for 2 weeks Avoid lifting objects greater than 10 pounds for 6 weeks During the surgery we fill your abdomen with air in order to see the structures. Some of this air tends to linger and cause pain that is referred to the shoulder as well as pain with deep breaths. This will get better with time. Being out of bed and walking will help the air to absorb faster If you develop worsening pain, nausea/vomiting, fever or signs of jaundice please seek care in ER
[2025-06-08] VITALS (13 sets, daily range): BP systolic 98–135; BP diastolic 61–87; PULSE 63–90; RESP 16–99; TEMP 36.2–37.2; O2SAT 97–99; BMI 38.4
[2025-06-08] LABS: Amphetamine/Methamp Scrn,U Negative (Negative); Barbiturate Screen,Urine Negative (Negative); Benzodiazepines Screen,Urine Negative (Negative); Benzoylecgonine Screen, Ur Negative (Negative); Fentanyl Screen,Urine Negative (Negative); Opiate Screen,Urine Negative (Negative); THC Screen,Urine Negative (Negative)
--- NOTE | 2025-06-08 | XR_ITS ---
MRI abdomen, without contrast. MRCP Date and time of exam: June 08, 2025, 0752 hours INDICATIONS: Epigastric pain beginning yesterday, cholelithiasis on gallbladder sonogram today Technique: Multiple axial and coronal images of the abdomen have been obtained with the Siemens 1.5T MRI scanner. Images obtained included T1 weighted transverse images, T2-weighted transverse images, T2-weighted transverse images fat-suppressed, T2 weighted haste fat suppressed transverse images, T1 weighted images, in and out of phase images, T2-weighted coronal images, breath hold, T2 weighted haze coronal images as well as T2 weighted coronal thick slab images, MRCP. Findings: No intrahepatic biliary tract dilatation or focal liver lesion Multiple gallstones Suspicious for minimal edema involving the gallbladder wall Common bile duct Common hepatic duct normal in size with no stones Severe acute pancreatitis, no pancreatic pseudocyst Spleen is not enlarged No hydronephrosis Aorta normal size IMPRESSION: Cholelithiasis There is mild edema around the gallbladder Severe acute pancreatitis, the edema involving the pancreas likely is accounting for the mild fluid around the gallbladder Normal common hepatic common bile duct
[2025-06-08 00:08] LABS: Alanine Aminotransferase 164 U/L (10-49); Albumin, Serum 4.1 gm/dL (3.5-5.0); Albumin/Globulin Ratio 1.5 (1.2-2.2); Alkaline Phosphatase 286 U/L (46-116); Anion Gap 10 (7-16); Aspartate Amino Transferase 178 U/L (0-34); BUN/Creatinine Ratio 13 Ratio (12-20); Bilirubin,Total 0.9 mg/dL (0.3-1.2); Blood Urea Nitrogen 10 mg/dL (9-23); Calcium 9.5 mg/dL (8.3-10.6); Calcium (Corrected) 9.5 mg/dL (8.5-10.1); Carbon Dioxide 29.9 mMol/L (20.0-31.0); Chloride 104 mMol/L (98-107); Creatinine (Component) 0.8 mg/dL (0.6-1.3); Estimated Creatinine Clearance 127.9 mL/min (>60); Globulin 2.7 gm/dL (2.3-3.5); Glucose 121 mg/dL (74-106); Osmolality,Calculated 286 (275-295); Potassium 4.0 mMol/L (3.4-5.1); Sodium 144 mMol/L (136-145); Total Protein 6.8 gm/dL (5.7-8.2); Troponin I < 0.002 ng/mL (0.0-0.045); eGFR > 60 See Note
--- NOTE | 2025-06-08 00:22 | XR_ITS ---
Examination: Abdomen sonogram, Limited Date and time of exam: June 08, 2025, 0137 hours INDICATIONS: Onset epigastric pain today Technique: Real-time solis scale transabdominal sonographic images of the upper abdomen obtained. Findings: Multiple gallstones Gallbladder wall 0.2 cm no edema Common bile duct 0.4 cm no stones Pancreatic head 2.5 cm Liver 16.9 cm no focal liver lesions Normal hepatopetal portal venous flow Patent IVC IMPRESSION: Cholelithiasis, negative for cholecystitis
--- NOTE | 2025-06-08 00:22 | XR_ITS ---
Examination: CT abdomen with intravenous contrast CT pelvis with intravenous contrast 2-D coronal reconstructions 2-D sagittal reconstructions Date and time of exam: June 08, 2025, 0116 hours INDICATIONS: 2 weeks with upper back and abdominal pain today. CTDI: vol (mGy) 11.3 DLP: (mGycm) 684 Technique: Multiple axial sections of the abdomen and pelvis have been obtained. 64 slice high-resolution scanner used. 3 mm axial sections have been obtained, post intravenous injection 60 cc [id number] 2-D sagittal, coronal reconstructions obtained. Low dose protocols were performed. One or more of the following dose reduction techniques were used; automated exposure control, adjustment of the mA and/or KV according to patient size, use of iterative reconstruction technique. Findings: Mild thickening of the gastric mucosa No visualized liver or splenic lesion Gallstones Gallbladder wall appears thickened Significant edema surrounding the pancreas, no pseudocyst No renal or ureteral calculi. Normal appendix No bowel obstruction Enlarged uterus, no pelvic mass No bladder mass Small fluid collections in the subcutaneous fat of the lower anterior abdominal wall, consider hematoma, seroma, less likely abscess IMPRESSION: Suspicious for gastritis Recommend MRCP follow-up to confirm acute calculus cholecystitis Acute pancreatitis Mild fluid collections in the subcutaneous fatty tissue of the lower abdominal wall, consider hematoma, seroma, less likely abscess
[2025-06-08 00:24] LABS: Lipase > 3500 U/L (12-53)
[2025-06-08] MEDS: RINGERS LACTATED 1000 ML 1,000 ML 250 ML IV ×4 (00:49→21:38)
[2025-06-08 01:20] LABS: Triglycerides 112 mg/dL (30-150)
--- NOTE | 2025-06-08 02:37 | PRELIM_ITS ---
CT angiogram of the chest with intravenous contrast (axial sections with sagittal and coronal reformats) June 08, 2025 0116 hours Clinical History: Rule out pulmonary thromboembolism. Technique:Helical axial sections with sagittal and coronal reformats of the chest were obtained with intravenous contrast. Iterative reconstruction technique was employed to reduce patient radiation exposure. 3D/MIP reconstructed images were also provided. Comparison: None available at the time of this report. Findings: There is no filling defect within the pulmonary artery divisions to suggest pulmonary thromboembolism. The mediastinum demonstrates no evidence of mass or lymphadenopathy. The thoracic aorta is unremarkable. There is no pericardial effusion. The lungs are clear. No evidence of pleural effusion or pneumothorax. The osseous structures are unremarkable. Please, see separate report for description of the abdominal findings. Dilated left atrium. Impression: No CT evidence of pulmonary thromboembolism or other acute intrathoracic pathology. Dilated left atrium. Report Electronically Signed By: Noel Knutson 06/08/2025 2:37:21 AM [EST]
--- NOTE | 2025-06-08 02:38 | PRELIM_ITS ---
Gallbladder ultrasound with Doppler and wave Doppler spectral analysis. June 08, 2025 0137 hours Clinical history: Upper back pain, elevated LFTs Comparison: None available at the time of this report. Findings: Hepatomegaly. Mildly increased echogenicity of the liver. Gallstones. Gallbladder sludge. No gallbladder wall thickening or pericholecystic fluid is identified. The common duct is normal in caliber at 3.5 mm. No free fluid is demonstrated on the submitted images. The portal vein is patent with hepatopetal flow and normal wave Doppler spectral analysis. The hepatic veins are patent with normal wave Doppler spectral analysis. The IVC is patent with normal wave Doppler spectral analysis. Zee sign is not available at the time of this report. Impression: Hepatomegaly associated with liver steatosis, suspicious for steatohepatitis. Gallstones without evidence of acute cholecystitis. Report Electronically Signed By: Noel Knutson 06/08/2025 2:37:52 AM [EST]
--- NOTE | 2025-06-08 02:44 | PRELIM_ITS ---
CT scan of the abdomen and pelvis with intravenous contrast (axial sections with sagittal and coronal reformats) June 08, 2025 0116 hours Clinical History: Upper back pain. Comparison: None available at the time of this report. Findings: The lung bases are clear. The liver, spleen, kidneys and adrenals are unremarkable. Gallstones. Prominent gallbladder wall. Prominent gastric wall. Peripancreatic fat stranding. No pancreatic duct dilation. No collections. No evidence of bowel obstruction. The appendix is within normal limits. There is no mesenteric or retroperitoneal adenopathy. The urinary bladder is unremarkable. There is no free fluid or free air. The osseous structures are unremarkable. The uterus and ovaries are within normal limits. Collection in the subcutaneous fat of the lower anterior abdominal wall measures 2.1 x 9.5 x 2.4 cm. Impression: Acute pancreatitis. Gallstones and prominent gallbladder wall suspicious for acute cholecystitis, consider correlation with right upper quadrant ultrasound. Possible gastritis. Abscess in the subcutaneous fat of the lower anterior abdominal wall. Surgical consult is recommended. Report Electronically Signed By: Noel Knutson 06/08/2025 2:44:02 AM [EST]
[2025-06-08 03:05] LABS: Lactate (Lactic Acid) 1.3 mMol/L (0.4-2.0)
[2025-06-08 03:08] LABS: Sed Rate (ESR) 32 mm/hr (0-20)
[2025-06-08 03:25] LABS: B-Type Natriuretic Peptide < 20 pg/mL (0-100)
[2025-06-08] MEDS: PIPER/TAZO 3.375 GM PREMIX 3.375 GM/50 ML BAG IV (03:27)
[2025-06-08 03:46] LABS: Alanine Aminotransferase 254 U/L (10-49); Albumin, Serum 3.9 gm/dL (3.5-5.0); Alkaline Phosphatase 298 U/L (46-116); Aspartate Amino Transferase 284 U/L (0-34); Bilirubin,Direct 0.7 mg/dL (0.0-0.3); Bilirubin,Total 1.3 mg/dL (0.3-1.2); Procalcitonin 0.06 ng/ml (0.0-0.49); Total Protein 6.9 gm/dL (5.7-8.2); Troponin I < 0.002 ng/mL (0.0-0.045)
--- NOTE | 2025-06-08 06:34 | PD.EDADDENDU ---
Emergency Room Addendum Addendum Narrative: 0600: Care assumed from Don Pacheco. Past medical, surgical, social and family history reviewed. Vitals and home medications reviewed. I will assume the care of the patient at this time, pending MRCP and final disposition. Please refer to the emergency department record for history and examination from initial visit.? Physical exam by me shows patient under no acute distress at this time. 1300: Discussed test HPI, PMHx, lab, radiology results and/or management with resident working with the hospitalist. Will admit for further evaluation and management. Accepts patient for admission. Diagnosis: Pancreatitis Results Objective Laboratory: Laboratory Last Values WBC 9.4 Thou/mm3 (3.6-11.0) 06/07/25 23:23 RBC 4.48 Miln/mm3 (4.00-5.20) 06/07/25 23:23 Hgb 12.9 g/dL (12.0-16.0) 06/07/25 23:23 Hct 38.8 % (36.0-46.0) 06/07/25 23:23 MCV 87 fL (80-100) 06/07/25 23:23 MCH 28.8 pg (25.0-35.0) 06/07/25 23:23 MCHC 33.2 g/dl (31.0-37.0) 06/07/25 23:23 RDW Std Deviation 39.9 fL (36.4-46.3) 06/07/25 23:23 Plt Count 327 Thou/mm3 (140-440) D 06/07/25 23:23 Neut % (Auto) 65 % (37-80) 06/07/25 23:23 Lymph % (Auto) 26 % (10-50) 06/07/25 23:23 [place] % (Auto) 7 % (0-12) 06/07/25 23:23 Eos % (Auto) 1 % (0-10) 06/07/25 23:23 Baso % (Auto) 1 % (0-2.5) 06/07/25 23:23 Neut # (Auto) 6.1 Thou/mm3 (1.8-7.7) 06/07/25 23:23 Lymph # (Auto) 2.5 Thou/mm3 (1.0-4.8) 06/07/25 23:23 [place] # (Auto) 0.6 Thou/mm3 (0.0-0.8) 06/07/25 23:23 Eos # (Auto) 0.1 Thou/mm3 (0.0-0.5) 06/07/25 23:23 Baso # (Auto) 0.1 Thou/mm3 (0.0-0.2) 06/07/25 23:23 Immature Gran # (Auto) 0.04 Thou/mm3 (0.00-0.00) H 06/07/25 23:23 Absolute Nucleated RBC 0.00 Thou/mm3 (0.00-0.00) 06/07/25 23:23 Immature Gran % 0 % (0-0) 06/07/25 23:23 Nucleated RBC % 0 /100 WBC (0) 06/07/25 23:23 ESR 32 mm/hr (0-20) H 06/08/25 02:56 PT 11.4 Seconds (9.0-12.2) 06/07/25 23:23 INR 1.1 (0.9-1.3) 06/07/25 23:23 APTT 27.1 Seconds (22.0-36.0) 06/07/25 23:23 D-Dimer 2300 ng/mL (<600) H 06/07/25 23:23 Sodium 144 mMol/L (136-145) 06/07/25 23:23 Potassium 4.0 mMol/L (3.4-5.1) 06/07/25 23:23 Chloride 104 mMol/L (98-107) 06/07/25 23:23 Carbon Dioxide 29.9 mMol/L (20.0-31.0) 06/07/25 23:23 Anion Gap 10 (7-16) 06/07/25 23:23 BUN 10 mg/dL (9-23) 06/07/25 23:23 Creatinine 0.8 mg/dL (0.6-1.3) 06/07/25 23:23 Estim Creat Clear Calc 127.9 mL/min (>60) 06/07/25 23:23 eGFR > 60 See Note (60-) 06/07/25 23:23 BUN/Creatinine Ratio 13 Ratio (12-20) 06/07/25 23:23 Glucose 121 mg/dL (74-106) H 06/07/25 23:23 Calculated Osmolality 286 (275-295) 06/07/25 23:23 Lactic Acid 1.3 mMol/L (0.4-2.0) 06/08/25 02:56 Calcium 9.5 mg/dL (8.3-10.6) 06/07/25 23:23 Corrected Calcium 9.5 mg/dL (8.5-10.1) 06/07/25 23:23 Total Bilirubin 1.3 mg/dL (0.3-1.2) H 06/08/25 02:56 Direct Bilirubin 0.7 mg/dL (0.0-0.3) H 06/08/25 02:56 AST 284 U/L (0-34) H 06/08/25 02:56 ALT 254 U/L (10-49) H 06/08/25 02:56 Alkaline Phosphatase 298 U/L (46-116) H 06/08/25 02:56 Troponin I < 0.002 ng/mL (0.0-0.045) 06/08/25 02:56 C-Reactive Prot, Quant Cancelled 06/08/25 02:56 B-Natriuretic Peptide < 20 pg/mL (0-100) 06/08/25 02:56 Total Protein 6.9 gm/dL (5.7-8.2) 06/08/25 02:56 Albumin 3.9 gm/dL (3.5-5.0) 06/08/25 02:56 Globulin 2.7 gm/dL (2.3-3.5) 06/07/25 23:23 Albumin/Globulin Ratio 1.5 (1.2-2.2) 06/07/25 23:23 Triglycerides 112 mg/dL (30-150) 06/07/25 23:23 Lipase > 3500 U/L (12-53) H* 06/07/25 23:23 Procalcitonin 0.06 ng/ml (0.0-0.49) 06/08/25 02:56 Ur Collection Type Clean Catch 06/07/25 23:41 Urine Color Yellow (Lt Yel-Yel) 06/07/25 23:41 Urine Clarity Clear (Clear/Hazy) 06/07/25 23:41 Urine pH 6.5 (5.0-7.0) 06/07/25 23:41 Ur Specific [place] 1.021 (1.001-1.035) 06/07/25 23:41 Urine Protein Negative (Neg - Trace) 06/07/25 23:41 Urine Glucose (UA) Negative (Negative) 06/07/25 23:41 Urine Ketones Negative (Negative) 06/07/25 23:41 Urine Blood Negative (Negative) 06/07/25 23:41 Urine Nitrite Negative (Negative) 06/07/25 23:41 Urine Bilirubin Negative (Negative) 06/07/25 23:41 Urine Urobilinogen (Auto) Negative mg/dL (0.0-1.0) 06/07/25 23:41 Ur Leukocyte Esterase Positive (Negative) 06/07/25 23:41 Urine RBC 2 /hpf (0-3) 06/07/25 23:41 Urine WBC 4 /hpf (0-5) 06/07/25 23:41 Ur Squamous Epith Cells < 1 /hpf (0-5) 06/07/25 23:41 Urine Bacteria None (None) 06/07/25 23:41 Ur Culture Indicated? Not Indicated 06/07/25 23:41 Urine Opiates Screen Negative (Negative) 06/07/25 23:41 Urine Fentanyl Screen Negative (Negative) 06/07/25 23:41 Ur Barbiturates Screen Negative (Negative) 06/07/25 23:41 U Amphetamin/Meth Scrn Negative (Negative) 06/07/25 23:41 U Benzodiazepines Scrn Negative (Negative) 06/07/25 23:41 U Cocaine Metab Screen Negative (Negative) 06/07/25 23:41 U Marijuana (THC) Screen Negative (Negative) 06/07/25 23:41 Imaging: Procedure(s): MR MRCP Accession Number(s): [id number] cc: Rufus Anaya MD; NO PRIMARY/FAMILY,PHYSICIAN; Don Pacheco PA-C~ MRI abdomen, without contrast. MRCP Date and time of exam: June 08, 2025, 0752 hours INDICATIONS: Epigastric pain beginning yesterday, cholelithiasis on gallbladder sonogram today Technique: Multiple axial and coronal images of the abdomen have been obtained with the Siemens 1.5T MRI scanner. Images obtained included T1 weighted transverse images, T2-weighted transverse images, T2-weighted transverse images fat-suppressed, T2 weighted haste fat suppressed transverse images, T1 weighted images, in and out of phase images, T2-weighted coronal images, breath hold, T2 weighted haze coronal images as well as T2 weighted coronal thick slab images, MRCP. Findings: No intrahepatic biliary tract dilatation or focal liver lesion Multiple gallstones Suspicious for minimal edema involving the gallbladder wall Common bile duct Common hepatic duct normal in size with no stones Severe acute pancreatitis, no pancreatic pseudocyst Spleen is not enlarged No hydronephrosis Aorta normal size IMPRESSION: Cholelithiasis There is mild edema around the gallbladder Severe acute pancreatitis, the edema involving the pancreas likely is accounting for the mild fluid around the gallbladder Normal common hepatic common bile duct Dictated By: Rufus Anaya MD
--- NOTE | 2025-06-08 08:20 | PC.NURSE ---
Patient return from MRI,, patient now sitting up using breastpump. No apparent distress.
[2025-06-08] MEDS: HYDROcodone/APAP 5/325 TABLET 1 TAB PO ×2 (09:53→16:43)
--- NOTE | 2025-06-08 13:31 | ESHP_ITS ---
<Statement entered by John Mcfarland MD - 06/09/25 12:43> I have discussed and was present for the essential components of the history, physical examination, diagnosis, and treatment plan with the resident. I agree with the patient's care as documented by the resident and amended herein by me. John Mcfarland MD FACP. Documentation for date of: 06/08/25 HPI History of Present Illness History of present illness: 20-year-old female without significant past medical history presented to ED with chief complaints of severe upper abdominal pain that was radiating to the back. Patient recently had a on 05/24/2025 without any complications. Patient was complaining of 8 out of 10 severe abdominal pain that started yesterday, progressively got worse associated with nausea and vomiting physical exam was noticeable for upper lower quadrants tenderness. Patient denies any chest pain, shortness of breath, dysuria, constipation, fever, or any other associated symptoms. On presentation patient was hemodynamically stable, however labs revealed severely elevated lipase above 3500, T. bili was 1.3, AST ALT above 200, ALP 298. Further imaging CT abdomen/pelvis showed suspicious for gastritis, acute pancreatitis. Gallbladder ultrasound revealed cholelithiasis, negative for cholecystitis. MRCP revealed cholelithiasis, mild edema around the gallbladder. Severe acute pancreatitis the edema involving the pancreas likely is accounting for the mild fluid around the gallbladder, normal common bile duct, no stones. Patient in ED received opioids and IV fluids and was admitted for acute pancreatitis secondary due to cholelithiasis treatment and management. Medical history none Past surgical history recent Medications vitamins Social history lives with her , has 1 kid, denies, recreational drug use Review of Systems Review of Systems Systems Reviewed: All systems reviewed, normal except as documented Exam Vital Signs Temp Pulse Resp BP Pulse Ox O2 Del Method 98.8 F 74 16 127/78 97 Room Air 06/08/25 12:14 06/08/25 13:16 06/08/25 13:16 06/08/25 12:14 06/08/25 12:14 06/08/25 12:14 Narrative Exam GENERAL: no acute distress, AAO x3, well nourished. HEENT: Head AT/ NC. Mucous membranes moist. PERRL. NECK: Supple, no lymphadenopathy, no carotid bruits. CARDIOVASCULAR: RRR. Normal S1/S2, No m/r/g. No pitting edema of bilateral LEs. RESPIRATORY: CTAB. No wheezing, rhonchi, crackles. GASTROINTESTINAL: Abdomen soft, mild tenderness in epigastric area , no palpable masses. scar noted, dressing is clean and dry. Bowel sounds present in all 4 quadrants. MUSCULOSKELETAL:? No cyanosis or edema, no visible joint swelling. NEUROLOGICAL: CN II-XII grossly intact. No focal deficits. Sensation intact, symmetric. PSYCHIATRIC: Awake and alert, not agitated, normal mood and affect. INTEGUMENTARY: No obvious rashes, no jaundice, normal turgor. Results: Labs 06/07/25 23:23 06/07/25 23:23 Labs: Short CBC 06/07/25 Range/Units 23:23 WBC 9.4 (3.6-11.0) Thou/mm3 Hgb 12.9 (12.0-16.0) g/dL Hct 38.8 (36.0-46.0) % Plt Count 327 D (140-440) Thou/mm3 BMP 06/07/25 23:23 Sodium 144 Potassium 4.0 Chloride 104 Carbon Dioxide 29.9 BUN 10 Creatinine 0.8 Glucose 121 H Calcium 9.5 Cardiac Enzymes 06/07/25 06/08/25 Range/Units 23:23 02:56 Troponin I < 0.002 < 0.002 (0.0-0.045) ng/mL Liver Function 06/07/25 06/08/25 Range/Units 23:23 02:56 Total Bilirubin 0.9 1.3 H (0.3-1.2) mg/dL Direct Bilirubin 0.7 H (0.0-0.3) mg/dL AST 178 H 284 H (0-34) U/L ALT 164 H 254 H (10-49) U/L Alkaline Phosphatase 286 H 298 H (46-116) U/L Albumin 4.1 3.9 (3.5-5.0) gm/dL Urine 06/07/25 Range/Units 23:41 Urine Color Yellow (Lt Yel-Yel) Urine Clarity Clear (Clear/Hazy) Urine pH 6.5 (5.0-7.0) Ur Specific [place] 1.021 (1.001-1.035) Urine Protein Negative (Neg - Trace) Urine Glucose (UA) Negative (Negative) Quality Measures Quality Measures none Medications Home Medications and Allergies Allergies Allergy/AdvReac Type Severity Reaction Status Date / Time No Known Allergies Allergy Verified 06/07/25 22:46 Visit Medications Acetaminophen (Acetaminophen 325 Mg Tablet) 650 mg PO Q6H PRN PRN Reason: PAIN OR FEVER > 101 Stop: 07/08/25 12:59 Hydrocodone Bitart/Acetaminophen (Hydrocodone/Apap 5/325 Tablet) 1 tab PO Q4HR PRN PRN Reason: PAIN SCALE 4-6 (Moderate Stop: 06/13/25 12:59 Enoxaparin Sodium (Enoxaparin Sod Inj 40 Mg/0.4 Ml Syringe) 40 mg SC QDAY SINDHU Stop: 06/23/25 08:59 Lactated Ringer's (Lactated Ringers) 1,000 mls @ 250 mls/hr IV .Q4H SINDHU Stop: 07/08/25 12:59 Last Admin: 06/08/25 13:20 Dose: 250 mls/hr Morphine Sulfate (Morphine Sulf Inj 4 Mg/Ml Vial) 2 mg IVP Q4HR PRN PRN Reason: PAIN SCALE 7-10 (Severe Stop: 06/13/25 12:59 Ondansetron HCl (Ondansetron Inj 2 Mg/Ml Inj 2 Ml) 4 mg IVP Q6H PRN; Protocol PRN Reason: NAUSEA OR VOMITING Stop: 07/08/25 12:59 Sennosides (Senna Tablet) 1 tab PO QDAY SINDHU; Protocol Stop: 07/09/25 08:59 Discontinued Medications Hydrocodone Bitart/Acetaminophen (Hydrocodone/Apap 5/325 Tablet) 1 tab PO X1 ONE Stop: 06/08/25 09:49 Last Admin: 06/08/25 09:53 Dose: 1 tab Famotidine (Famotidine 20 Mg Tablet) 40 mg PO X1 ONE Stop: 06/07/25 23:08 Last Admin: 06/07/25 23:15 Dose: 40 mg Lactated Ringer's (Lactated Ringers) 1,000 mls @ 250 mls/hr IV .Q4H ONE Stop: 06/08/25 04:39 Last Infusion: 06/08/25 05:30 Dose: Infused Piperacillin/Tazobactam/Dextrose (Zosyn) 3.375 gm in 50 mls @ 100 mls/hr IV X1 ONE; Protocol Stop: 06/08/25 03:22 Last Infusion: 06/08/25 03:58 Dose: Infused Assessment & Plan Plan 20-year-old female without significant past was admitted for gallstone pancreatitis treatment with manage #Gallstone pancreatitis #Abdominal pain secondary due to above #Cholelithiasis Presented with chief complaints of abdominal pain mainly located on epigastric area that will radiate to the back. CT abdomen/pelvis showed suspicious for gastritis, acute pancreatitis. Gallbladder ultrasound revealed cholelithiasis, negative for cholecystitis. MRCP revealed cholelithiasis, mild edema around the gallbladder. Severe acute pancreatitis the edema involving the pancreas likely is accounting for the mild fluid around the gallbladder, normal common bile duct, no stones. In ED patient received IVF, along with pain management -Continue symptomatic management with IV fluids -Pain control as needed with [place] and morphine -Monitor urine output -Keep n.p.o. 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 Bartolo Buchanan MD PGY-3 I have carefully reviewed this document. Due to imperfections in the voice software, there could be grammatical errors including phonetic/typographic errors. This in no way compromises the medical care the patient is receiving
--- NOTE | 2025-06-08 17:09 | PC.NURSE ---
Per Nelda in pharmacy dumping of breast milk needs to continue for [address] contrast infusion.
[2025-06-09] VITALS (9 sets, daily range): BP systolic 116–143; BP diastolic 61–90; PULSE 79–98; RESP 15–98; TEMP 36.3–37.7; O2SAT 95–98
[2025-06-09] MEDS: RINGERS LACTATED 1000 ML 1,000 ML 250 ML IV ×2 (01:52→05:44)
[2025-06-09 05:59] LABS: Basophils # (Auto) 0.1 Thou/mm3 (0.0-0.2); Basophils % (Auto) 1 % (0-2.5); Eosinophils # (Auto) 0.1 Thou/mm3 (0.0-0.5); Eosinophils % (Auto) 1 % (0-10); Hematocrit 37.7 % (36.0-46.0); Hemoglobin 12.4 g/dL (12.0-16.0); Immature Granulocytes Auto 0.03 Thou/mm3 (0.00-0.00); Lymphocytes # (Auto) 1.8 Thou/mm3 (1.0-4.8); Lymphocytes % (Auto) 18 % (10-50); Mean Corpuscular HGB Conc 32.9 g/dl (31.0-37.0); Mean Corpuscular Hemoglobin 28.8 pg (25.0-35.0); Mean Corpuscular Volume 88 fL (80-100); Monocytes # (Auto) 0.4 Thou/mm3 (0.0-0.8); Monocytes % (Auto) 4 % (0-12); Neutrophils # (Auto) 7.7 Thou/mm3 (1.8-7.7); Neutrophils % (Auto) 76 % (37-80); Nucleated Red Blood Cell # 0.00 Thou/mm3 (0.00-0.00); Nucleated Red Blood Cell % 0 /100 WBC (0); Platelet Count 276 Thou/mm3 (140-440); RDW Standard Deviation 41.0 fL (36.4-46.3); Red Blood Count 4.31 Miln/mm3 (4.00-5.20); White Blood Count 10.1 Thou/mm3 (3.6-11.0)
[2025-06-09 06:30] LABS: Alanine Aminotransferase 452 U/L (10-49); Albumin, Serum 3.5 gm/dL (3.5-5.0); Albumin/Globulin Ratio 1.5 (1.2-2.2); Alkaline Phosphatase 309 U/L (46-116); Anion Gap 11 (7-16); Aspartate Amino Transferase 244 U/L (0-34); BUN/Creatinine Ratio 10 Ratio (12-20); Bilirubin,Total 0.7 mg/dL (0.3-1.2); Blood Urea Nitrogen 6 mg/dL (9-23); Calcium 8.5 mg/dL (8.3-10.6); Calcium (Corrected) 8.9 mg/dL (8.5-10.1); Carbon Dioxide 27.4 mMol/L (20.0-31.0); Cardiac Risk Estimate 3.1 RATIO (3.7-5.6); Chloride 104 mMol/L (98-107); Cholesterol 135 mg/dL (132-200); Creatinine (Component) 0.6 mg/dL (0.6-1.3); Estimated Creatinine Clearance 170.6 mL/min (>60); Globulin 2.4 gm/dL (2.3-3.5); Glucose 98 mg/dL (74-106); HDL Cholesterol 43 mg/dL (40-60); LDL Cholesterol,Calculated 76 mg/dL (0-130); Magnesium 1.6 mg/dL (1.6-2.6); Osmolality,Calculated 280 (275-295); Phosphorous 3.7 mg/dL (2.4-5.1); Potassium 3.6 mMol/L (3.4-5.1); Sodium 142 mMol/L (136-145); Thyroid Stimulating Hormone 1.47 uIU/mL (0.55-4.78); Total Protein 5.9 gm/dL (5.7-8.2); Triglycerides 78 mg/dL (30-150); eGFR > 60 See Note
[2025-06-09] MEDS: HYDROcodone/APAP 5/325 TABLET 1 TAB PO ×2 (07:53→21:02)
[2025-06-09] MEDS: RINGERS LACTATED 1000 ML 1,000 ML 100 ML IV ×3 (08:17→22:15)
[2025-06-09] MEDS: FAMOTIDINE 20 MG TABLET PO (08:18)
[2025-06-09] MEDS: ENOXAPARIN SOD INJ 40 MG/0.4 ML SYRINGE SC (08:18)
--- NOTE | 2025-06-09 11:31 | PD.SURCONS ---
HPI Consult details History of present illness: 20F s/p on 05/24/25 who presented to ER with epigastric pain radiating to the back. Patient reports she has had this pain on and off for the last few months, she was initially treated for gastritis and the medication did help but for the past few days she is having worsening of this pain associated with nausea and vomiting. In ER she underwent CT showing signs of acute pancreatitis as well as gallbladder ultrasound showing cholelithiasis and lipase was significantly elevated. As of today patient reports feeling much better, her pain has significantly decreased and she is tolerating clear liquids. Her main complaint is constipation, she has not had a bowel movement for the last few days PMH: None PSH: Meds: vitamins Allergies: NKDA Social history: No smoking, no alcohol use, is currently breast-feeding Review of Systems Review of Systems ROS Unobtainable: All systems reviewed & no additional complaints except as documented Meds Home Medications and Allergies Home Medications ?Medication ?Instructions ?Recorded ?Confirmed ?Type No Known Home Medications 06/08/25 06/08/25 History Allergies Allergy/AdvReac Type Severity Reaction Status Date / Time No Known Allergies Allergy Verified 06/07/25 22:46 Exam Vital Signs Temp Pulse Resp BP Pulse Ox O2 Del Method 98.8 F 98 16 121/65 97 Room Air 06/09/25 07:38 06/09/25 07:38 06/09/25 07:38 06/09/25 07:38 06/09/25 07:38 06/09/25 07:38 Constitutional Constitutional: no acute distress Routine Respiratory Exam Respiratory: Present no resp distress Routine Abdominal Exam Abdominal: Present soft; Absent tenderness or distended Results Results: Laboratory Laboratory results: results reviewed Results: Imaging Imaging narrative: MRCP reviewed CT scan - abdomen: report reviewed and image reviewed US - abdomen: report reviewed Assessment & Plan Plan 20F s/p on 05/24/25 who presented to ER with epigastric pain radiating to the back, nausea and vomiting with signs and symptoms of pancreatitis likely related to gallstones. I explained that cholecystectomy is recommended during this admission to prevent future episodes of gallstone pancreatitis and enumerated risks of surgery including need for conversion to open, bleeding, infection, and injury to nearby structures requiring further procedures or a major reconstructive surgery which would require transfer to another hospital. All questions were answered and patient is agreeable to proceeding FLD Miralax prn NPO after midnight for laparoscopic cholecystectomy, possible open tomorrow 06/10/25
--- NOTE | 2025-06-09 12:12 | ESPR_ITS ---
<Statement entered by John Mcfarland MD - 06/09/25 12:44> I have discussed and was present for the essential components of the history, physical examination, diagnosis, and treatment plan with the resident. I agree with the patient's care as documented by the resident and amended herein by me. John Mcfarland MD FACP. Documentation for date of: 06/09/25 Subjective Subjective Interval history: Patient seen and examined at bedside. No acute overnight events, labs were reviewed, leukocytosis from 20 up from 9.4-10.1, however stable, normal range. ALT down trended to 244, however ALT and ALP still elevated. Blood cultures negative in 24 hours. Patient still on IV fluids, decrease rate to 100 cc/h, start clear liquid diet, tolerated well, for bowel regimen will give MiraLAX as needed, patient will continue clear liquid diet, IV fluids, pain management as needed, general surgery evaluated the patient patient will have surgery tomorrow. N.p.o. after midnight. Exam Vital Signs Temp Pulse Resp BP Pulse Ox O2 Del Method 98.8 F 98 16 121/65 97 Room Air 06/09/25 07:38 06/09/25 07:38 06/09/25 07:38 06/09/25 07:38 06/09/25 07:38 06/09/25 07:38 Narrative Exam GENERAL: no acute distress, AAO x3, well nourished. HEENT: Head AT/ NC. Mucous membranes moist. PERRL. NECK: Supple, no lymphadenopathy, no carotid bruits. CARDIOVASCULAR: RRR. Normal S1/S2, No m/r/g. No pitting edema of bilateral LEs. RESPIRATORY: CTAB. No wheezing, rhonchi, crackles. GASTROINTESTINAL: Abdomen soft, mild tenderness in epigastric area , no palpable masses. scar noted, dressing is clean and dry. Bowel sounds present in all 4 quadrants. MUSCULOSKELETAL:? No cyanosis or edema, no visible joint swelling. NEUROLOGICAL: CN II-XII grossly intact. No focal deficits. Sensation intact, symmetric. PSYCHIATRIC: Awake and alert, not agitated, normal mood and affect. INTEGUMENTARY: No obvious rashes, no jaundice, normal turgor. Objective Labs 06/09/25 04:29 06/09/25 04:29 Labs: Laboratory Results - last 24 hr 06/09/25 04:29 WBC 10.1 RBC 4.31 Hgb 12.4 Hct 37.7 MCV 88 MCH 28.8 MCHC 32.9 RDW Std Deviation 41.0 Plt Count 276 D Neut % (Auto) 76 Lymph % (Auto) 18 [place] % (Auto) 4 Eos % (Auto) 1 Baso % (Auto) 1 Neut # (Auto) 7.7 Lymph # (Auto) 1.8 [place] # (Auto) 0.4 Eos # (Auto) 0.1 Baso # (Auto) 0.1 Immature Gran # (Auto) 0.03 H Absolute Nucleated RBC 0.00 Immature Gran % 0 Nucleated RBC % 0 Sodium 142 Potassium 3.6 Chloride 104 Carbon Dioxide 27.4 Anion Gap 11 BUN 6 L Creatinine 0.6 Estim Creat Clear Calc 170.6 eGFR > 60 BUN/Creatinine Ratio 10 L Glucose 98 Calculated Osmolality 280 Calcium 8.5 Corrected Calcium 8.9 Phosphorus 3.7 Magnesium 1.6 Total Bilirubin 0.7 D AST 244 H ALT 452 H Alkaline Phosphatase 309 H Total Protein 5.9 Albumin 3.5 Globulin 2.4 Albumin/Globulin Ratio 1.5 Triglycerides 78 Cholesterol 135 LDL Cholesterol, Calc 76 HDL Cholesterol 43 Cholesterol/HDL Ratio 3.1 L TSH 1.47 Quality Measures Quality Measures none Assessment & Plan Assessment Current Active Medications: Generic Name Dose Route Start Last Admin Trade Name Freq PRN Reason Stop Dose Admin Acetaminophen 650 mg 06/08/25 13:00 Acetaminophen 325 Mg Tablet PO 07/08/25 12:59 Q6H PRN PAIN OR FEVER > 101 Protocol Hydrocodone Bitart/Acetaminophen 1 tab 06/08/25 13:00 06/09/25 07:53 Hydrocodone/Apap 5/325 Tablet PO 06/13/25 12:59 1 tab Q4HR PRN Administration PAIN SCALE 4-6 (Moderate Enoxaparin Sodium 40 mg 06/09/25 09:00 06/09/25 08:18 Enoxaparin Sod Inj 40 Mg/0.4 Ml Syringe SC 06/23/25 08:59 40 mg QDAY SINDUH Administration Famotidine 20 mg 06/09/25 09:00 06/09/25 08:18 Famotidine 20 Mg Tablet PO 07/09/25 08:59 20 mg QDAY SINDHU Administration Lactated Ringer's 1,000 mls @ 100 mls/hr 06/09/25 08:15 06/09/25 11:55 Lactated Ringers IV 07/09/25 08:14 100 mls/hr .Q10H SINDHU Administration Morphine Sulfate 2 mg 06/08/25 13:00 Morphine Sulf Inj 4 Mg/Ml Vial IVP 06/13/25 12:59 Q4HR PRN PAIN SCALE 7-10 (Severe Ondansetron HCl 4 mg 06/08/25 13:00 Ondansetron Inj 2 Mg/Ml Inj 2 Ml IVP 07/08/25 12:59 Q6H PRN NAUSEA OR VOMITING Protocol Polyethylene Glycol 17 gm 06/09/25 11:27 Polyethylene Glycol 17 Gm Packet PO 07/10/25 08:59 QDAY PRN CONSTIPATION Sennosides 1 tab 06/09/25 09:00 06/09/25 08:18 Senna Tablet PO 07/09/25 08:59 1 tab QDAY SINDHU Administration Protocol Plan 20-year-old female without significant past was admitted for gallstone pancreatitis treatment with manage #Gallstone pancreatitis #Abdominal pain secondary due to above #Cholelithiasis Presented with chief complaints of abdominal pain mainly located on epigastric area that will radiate to the back. CT abdomen/pelvis showed suspicious for gastritis, acute pancreatitis. Gallbladder ultrasound revealed cholelithiasis, negative for cholecystitis. MRCP revealed cholelithiasis, mild edema around the gallbladder. Severe acute pancreatitis the edema involving the pancreas likely is accounting for the mild fluid around the gallbladder, normal common bile duct, no stones. In ED patient received IVF, along with pain management -Continue symptomatic management with IV fluids -Pain control as needed with [place] and morphine -Monitor urine output -Keep n.p.o. -General Surgery evaluated the patient, continue clear liquid diet, n.p.o. after midnight, surgery tomorrow #Transaminitis Continue IV fluids -Follow-up with daily CMP #Status post Follow-up outpatient with [employer]AL[employer]ANCE Disposition: MedSurg DVT prophylaxis: Lovenox holding , pending surgery tomorrow GI prophylaxis: famotidine Diet: Clear liquid diet, n.p.o. after midnight Lines: PIV CODE STATUS:Full code Patient care was discussed with attending physician Dr. Bartolo Buchanan MD PGY-3 I have carefully reviewed this document. Due to imperfections in the voice software, there could be grammatical errors including phonetic/typographic errors. This in no way compromises the medical care the patient is receiving
--- NOTE | 2025-06-09 12:23 | PC.SS ---
Patient is a 20 year old female presenting to the hospital for pancreatitis. STRAW HAT BRIM RAISER OPERATOR made face to face contact with patient and patient father at bedside. Patient gave consent for father to remain in the room. Patient stated she lives at home with mother and father. Patient stated that in case she is unable to make medical decisions on her own she would like her father to make them Martin [phone]. Patient stated she does not use any DME. Patient stated she arrived to the last year and does not have PCP but has been seeing OB doctor at [place]. Her last appointment was in April 2025. [facility]. Patient stated that once medically clear she will return home and her father will provide transportation. STRAW HAT BRIM RAISER OPERATOR provided resources for local clinics. PCP: none Decision maker: Micah Sierra, father [phone] D/c: home
[2025-06-09] MEDS: POLYETHYLENE GLYCOL 17 GM PACKET PO (13:24)
[2025-06-09] MEDS: ACETAMINOPHEN 325 MG TABLET 650 MG PO (15:55)
[2025-06-10] VITALS (7 sets, daily range): BP systolic 131–152; BP diastolic 79–95; PULSE 97–112; RESP 18–97; TEMP 36.2–38.1; O2SAT 95–97
[2025-06-10 05:41] LABS: Basophils # (Auto) 0.1 Thou/mm3 (0.0-0.2); Basophils % (Auto) 1 % (0-2.5); Eosinophils # (Auto) 0.1 Thou/mm3 (0.0-0.5); Eosinophils % (Auto) 1 % (0-10); Hematocrit 34.3 % (36.0-46.0); Hemoglobin 11.5 g/dL (12.0-16.0); Immature Granulocytes Auto 0.03 Thou/mm3 (0.00-0.00); Lymphocytes # (Auto) 1.9 Thou/mm3 (1.0-4.8); Lymphocytes % (Auto) 17 % (10-50); Mean Corpuscular HGB Conc 33.5 g/dl (31.0-37.0); Mean Corpuscular Hemoglobin 29.2 pg (25.0-35.0); Mean Corpuscular Volume 87 fL (80-100); Monocytes # (Auto) 0.7 Thou/mm3 (0.0-0.8); Monocytes % (Auto) 6 % (0-12); Neutrophils # (Auto) 8.3 Thou/mm3 (1.8-7.7); Neutrophils % (Auto) 75 % (37-80); Nucleated Red Blood Cell # 0.00 Thou/mm3 (0.00-0.00); Nucleated Red Blood Cell % 0 /100 WBC (0); Platelet Count 244 Thou/mm3 (140-440); RDW Standard Deviation 40.5 fL (36.4-46.3); Red Blood Count 3.94 Miln/mm3 (4.00-5.20); White Blood Count 11.1 Thou/mm3 (3.6-11.0)
[2025-06-10 06:06] LABS: Alanine Aminotransferase 236 U/L (10-49); Albumin, Serum 3.6 gm/dL (3.5-5.0); Albumin/Globulin Ratio 1.6 (1.2-2.2); Alkaline Phosphatase 223 U/L (46-116); Anion Gap 9 (7-16); Aspartate Amino Transferase 65 U/L (0-34); BUN/Creatinine Ratio 8 Ratio (12-20); Bilirubin,Total 0.8 mg/dL (0.3-1.2); Blood Urea Nitrogen 5 mg/dL (9-23); Calcium 8.7 mg/dL (8.3-10.6); Calcium (Corrected) 9.0 mg/dL (8.5-10.1); Carbon Dioxide 27.4 mMol/L (20.0-31.0); Chloride 105 mMol/L (98-107); Creatinine (Component) 0.6 mg/dL (0.6-1.3); Estimated Creatinine Clearance 170.6 mL/min (>60); Globulin 2.3 gm/dL (2.3-3.5); Glucose 89 mg/dL (74-106); Magnesium 1.7 mg/dL (1.6-2.6); Osmolality,Calculated 277 (275-295); Phosphorous 3.8 mg/dL (2.4-5.1); Potassium 3.6 mMol/L (3.4-5.1); Sodium 141 mMol/L (136-145); Total Protein 5.9 gm/dL (5.7-8.2); eGFR > 60 See Note
[2025-06-10 07:46] LABS: HCG,Qualitative Serum Negative
[2025-06-10] MEDS: FAMOTIDINE 20 MG TABLET PO (08:16)
[2025-06-10] MEDS: RINGERS LACTATED 1000 ML 1,000 ML 100 ML IV (08:16)
--- NOTE | 2025-06-10 11:29 | PC.SS ---
Follow up note: Surgery with Dr. Mills. On IV fluids. Pt will return home upon dc.
--- NOTE | 2025-06-10 11:57 | PD.RESPRO ---
Documentation for date of: 06/10/25 Subjective Subjective Interval history: Labs reviewed and patient examined at the bedside. Overnight patient had a spike of fever of 100.5 F. Currently suspecting cholecystitis. Patient was scheduled for cholecystectomy today. However currently on hold because of the fever. Patient had on 05/24/2025. Per DRAW STRING KNOTTER, wound is healing well and there are no concerns obstetric-related infection. The patient has started on Zosyn 4.5 g IV Q8HR. Lovenox 30 mg SC x 1 has been given. Currently on LR IVF 100 mL/HR. Blood culture is negative for 48hrs x2. Patient's LFTs are downtrending. AST is 65 from 244. ALT is 236 from 452. ALP is 223 from 309. During admission the patient had epigastric pain, however, today the patient complains of left upper quadrant pain on palpation. Denies chest pain, palpation, SOB, N/V, fevers or chills. Exam Vital Signs Temp Pulse Resp BP Pulse Ox O2 Del Method 97.8 F 100 19 131/87 H 95 Room Air 06/10/25 08:00 06/10/25 08:00 06/10/25 08:00 06/10/25 08:00 06/10/25 08:00 06/10/25 08:00 Narrative Exam General: No acute distress, well nourished, AAO x3 Eye: PERRL, EOMI, normal conjunctiva, no scleral icterus HENT: Normocephalic, atraumatic, hearing intact to conversation at normal volume, moist oral mucosa Neck: Supple, non-tender, no JVD, no lymphadenopathy Lungs: Non-labored respirations, symmetric chest rise, Clear to auscultate bilaterally, No wheezing, rhonchi, crackles Heart: Peripheral pulses intact bilaterally, Regular Rate and Rhythm. Abdomen: Soft, non-distended, no palpable masses, LUQ pain on palpation. Musculoskeletal: Normal range of motion and strength, No cyanosis or edema, No visible joint swelling Skin: Skin is warm, dry, no rashes or lesions. Psychiatric: Cooperative, appropriate mood and affect, Awake and alert, not agitated Neuro: Cranial nerves II-XII grossly intact.Sensations intact to light touch. Objective Labs 06/11/25 05:14 06/11/25 05:14 Labs: Laboratory Results - last 24 hr 06/10/25 04:55 WBC 11.1 H RBC 3.94 L Hgb 11.5 L Hct 34.3 L MCV 87 MCH 29.2 MCHC 33.5 RDW Std Deviation 40.5 Plt Count 244 D Neut % (Auto) 75 Lymph % (Auto) 17 Gonzales % (Auto) 6 Eos % (Auto) 1 Baso % (Auto) 1 Neut # (Auto) 8.3 H Lymph # (Auto) 1.9 Gonzales # (Auto) 0.7 Eos # (Auto) 0.1 Baso # (Auto) 0.1 Immature Gran # (Auto) 0.03 H Absolute Nucleated RBC 0.00 Immature Gran % 0 Nucleated RBC % 0 Sodium 141 Potassium 3.6 Chloride 105 Carbon Dioxide 27.4 Anion Gap 9 BUN 5 L Creatinine 0.6 Estim Creat Clear Calc 170.6 eGFR > 60 BUN/Creatinine Ratio 8 L Glucose 89 Calculated Osmolality 277 Calcium 8.7 Corrected Calcium 9.0 Phosphorus 3.8 Magnesium 1.7 Total Bilirubin 0.8 AST 65 H ALT 236 H Alkaline Phosphatase 223 H D Total Protein 5.9 Albumin 3.6 Globulin 2.3 Albumin/Globulin Ratio 1.6 HCG, Qual Negative Quality Measures Quality Measures none Assessment & Plan Assessment Current Active Medications: Generic Name Dose Route Start Last Admin Trade Name Freq PRN Reason Stop Dose Admin Acetaminophen 650 mg 06/08/25 13:00 06/09/25 15:55 Acetaminophen 325 Mg Tablet PO 07/08/25 12:59 650 mg Q6H PRN Administration PAIN OR FEVER > 101 Protocol Hydrocodone Bitart/Acetaminophen 1 tab 06/08/25 13:00 06/09/25 21:02 Hydrocodone/Apap 5/325 Tablet PO 06/13/25 12:59 1 tab Q4HR PRN Administration PAIN SCALE 4-6 (Moderate Enoxaparin Sodium 40 mg 06/09/25 09:00 06/09/25 08:18 Enoxaparin Sod Inj 40 Mg/0.4 Ml Syringe SC 06/23/25 08:59 40 mg On Hold: 06/10/25 11:25 QDAY SINDHU Administration Famotidine 20 mg 06/09/25 09:00 06/10/25 08:16 Famotidine 20 Mg Tablet PO 07/09/25 08:59 20 mg QDAY SINDHU Administration Lactated Ringer's 1,000 mls @ 100 mls/hr 06/09/25 08:15 06/10/25 08:16 Lactated Ringers IV 07/09/25 08:14 100 mls/hr .Q10H SINDHU Administration Piperacillin Sod/Tazobactam 100 mls @ 200 mls/hr 06/10/25 14:00 Sod 4.5 gm/ Sodium Chloride IV 06/17/25 13:59 Q8HR SINDHU Protocol Morphine Sulfate 2 mg 06/08/25 13:00 Morphine Sulf Inj 4 Mg/Ml Vial IVP 06/13/25 12:59 Q4HR PRN PAIN SCALE 7-10 (Severe Ondansetron HCl 4 mg 06/08/25 13:00 Ondansetron Inj 2 Mg/Ml Inj 2 Ml IVP 07/08/25 12:59 Q6H PRN NAUSEA OR VOMITING Protocol Polyethylene Glycol 17 gm 06/09/25 11:27 06/09/25 13:24 Polyethylene Glycol 17 Gm Packet PO 07/10/25 08:59 17 gm QDAY PRN Administration CONSTIPATION Sennosides 1 tab 06/09/25 09:00 06/10/25 08:16 Senna Tablet PO 07/09/25 08:59 1 tab QDAY SINDHU Administration Protocol Plan 20-year-old female with PMH of on 05/24/2025 was admitted for management of gallstone pancreatitis. #Gallstone pancreatitis #Cholelithiasis #Cholecystitis -Presented with chief complaints of abdominal pain mainly located on epigastric area that will radiate to the back. -Patient's LFTs are downtrending. AST is 65 from 244. ALT is 236 from 452. ALP is 223 from 309. -Patient had a spike of fever of 100.5 F on 06/10 morning. Currently suspecting cholecystitis. -CT abdomen/pelvis showed suspicious for gastritis, acute pancreatitis. -Gallbladder ultrasound revealed cholelithiasis, negative for cholecystitis. -MRCP revealed cholelithiasis, mild edema around the gallbladder. Severe acute pancreatitis the edema involving the pancreas likely is accounting for the mild fluid around the gallbladder, normal common bile duct, no stones. -In ED patient received IVF, along with pain management -Blood culture is negative for 48hrs x2. Plan: -On LR IVF 100 mL/HR. -Started on Zosyn 4.5 g IV Q8HR.(10/13-) -Pain control as needed with Addison and morphine -Monitor urine output -Keep n.p.o. -Patient was scheduled for cholecystectomy today. However currently on hold because of the fever. #Transaminitis -Continue IV fluids -Patient's LFTs are downtrending. AST is 65 from 244. ALT is 236 from 452. ALP is 223 from 309. -Follow-up with daily CMP #Status post (05/24/2025) -Consulted OBGYN. -Per OBGYN, no concerns regarding pfannenstiel wound healing and no concerns for endometritis or other obstetric-related infection Disposition: MedSurg DVT prophylaxis: Lovenox holding , pending surgery tomorrow GI prophylaxis: famotidine Diet: Clear liquid diet, n.p.o. after midnight Lines: PIV CODE STATUS:Full code Assessment and plan discussed with my attending physician Dr. Lala Tiwari (PGY-1) - Internal medicine resident Attending Provider Attestation/Addendum I reviewed labs, imaging, EKG, home medications and prior available records. Face to face evaluation was performed by me. I have personally examined the patient and discussed assessment and plan with the IM team. I reviewed the resident note and agree with the plan with exceptions as below. Acute pancreatitis Cholelithiasis Transaminitis Status post Patient spiked a fever and she was tachycardic. Surgery deferred cholecystectomy till 06/11 Continue IV Zosyn Monitor LFTs Consulted PAIRING MACHINE OPERATOR: No concern for infection related to or PAIRING MACHINE OPERATOR related complications
[2025-06-10] MEDS: ENOXAPARIN SOD INJ 30 MG/0.3 ML SYRINGE SC (12:36)
--- NOTE | 2025-06-10 13:14 | PD.GYNCONS ---
SOCKET PULLER HPI Data of Consult Requesting Physician: Anand Reeves MD Primary Care Provider: Physician No Primary/Family Consult Narrative History of present illness: Genesis is a 20yo s/p uncomplicated PLTCS on 05/24 for arrest of dilation currently admitted (hospital day 4) for pancreatitis. On admission lipase was >3500, LFTs elevated, and imaging supported diagnosis along with cholelithiasis and gallbladder wall edema. She has been evaluated by General Surgery and plan is for cholecystectomy during current admission. However, patient had a fever to 100.5F at 0400 this morning, so cholecystectomy was held off, and I was consulted by IM to ensure incision is well appearing and there is no concern for gynecologic source of infection. Genesis was up and walking when I saw her. She noted no further nausea/vomiting. She states lochia is very minimal at this point, only sees a bit of pink/red when she voids. No lower abdominal pain. No concerns regarding incision. cc:: cc: Anand Reeves MD Review of Systems Review of Systems Narrative Review of Systems: Review of Systems Systems Reviewed: All systems reviewed, normal except as documented Constitutional Constitutional: Denies body ache(s), Denies chills, Denies fever(s) and Denies headache(s) ENT Ears, Nose, Mouth, and Throat: Denies headache(s) and Denies vertigo Cardiovascular Cardiovascular: Denies chest pain, Denies palpitations, Denies dyspnea and Denies syncope Respiratory Respiratory: Denies cough, Denies dyspnea Gastrointestinal Gastrointestinal: Denies nausea and Denies vomiting Neurologic Neurologic: Denies convulsions, Denies headache(s), Denies other visual disturbances, Denies syncope and Denies vertigo Past Medical History Family History OTHER FAMILY HX: non-contributory Surgical History SURGICAL: Positive Section (x1) Social History SOCIAL: No tobacco/ETOH/illicit drugs Past Medical History Comments PMH COMMENT: Current BMI 38.4 Hx of A1GDM with recent as well as severe hyperemesis Meds Home Medications and Allergies Home Medications ?Medication ?Instructions ?Recorded ?Confirmed ?Type No Known Home Medications 06/08/25 06/08/25 History Allergies Allergy/AdvReac Type Severity Reaction Status Date / Time No Known Allergies Allergy Verified 06/07/25 22:46 Exam - SOCKET PULLER Vital Signs Temp Pulse Resp BP Pulse Ox O2 Del Method 98.1 F 103 H 18 131/80 H 97 Room Air 06/10/25 12:00 06/10/25 12:00 06/10/25 12:00 06/10/25 12:00 06/10/25 12:00 06/10/25 12:00 Narrative Exam General: well developed, well nourished, no acute distress, conversant Cardiac: normal heart rate Lungs: breathing without distress Abdomen: soft, non-tender, no rebound or guarding, pfannenstiel incision is sealed, well-healing. No erythema, drainage or induration. Uterus within pelvis. Extremities: no pain with palpation of calves SOCKET PULLER - Results Labs 06/10/25 04:55 06/10/25 04:55 Labs: Short CBC 06/10/25 Range/Units 04:55 WBC 11.1 H (3.6-11.0) Thou/mm3 Hgb 11.5 L (12.0-16.0) g/dL Hct 34.3 L (36.0-46.0) % Plt Count 244 D (140-440) Thou/mm3 BMP 06/10/25 04:55 Sodium 141 Potassium 3.6 Chloride 105 Carbon Dioxide 27.4 BUN 5 L Creatinine 0.6 Glucose 89 Calcium 8.7 Liver Function 06/10/25 Range/Units 04:55 Total Bilirubin 0.8 (0.3-1.2) mg/dL AST 65 H (0-34) U/L ALT 236 H (10-49) U/L Alkaline Phosphatase 223 H D (46-116) U/L Albumin 3.6 (3.5-5.0) gm/dL Impressions Impression: Examination: CT abdomen with intravenous contrast CT pelvis with intravenous contrast 2-D coronal reconstructions 2-D sagittal reconstructions Date and time of exam: June 08, 2025, 0116 hours INDICATIONS: 2 weeks with upper back and abdominal pain today. CTDI: vol (mGy) 11.3 DLP: (mGycm) 684 Technique: Multiple axial sections of the abdomen and pelvis have been obtained. 64 slice high-resolution scanner used. 3 mm axial sections have been obtained, post intravenous injection 60 cc [id number] 2-D sagittal, coronal reconstructions obtained. Low dose protocols were performed. One or more of the following dose reduction techniques were used; automated exposure control, adjustment of the mA and/or KV according to patient size, use of iterative reconstruction technique. Findings: Mild thickening of the gastric mucosa No visualized liver or splenic lesion Gallstones Gallbladder wall appears thickened Significant edema surrounding the pancreas, no pseudocyst No renal or ureteral calculi. Normal appendix No bowel obstruction Enlarged uterus, no pelvic mass No bladder mass Small fluid collections in the subcutaneous fat of the lower anterior abdominal wall, consider hematoma, seroma, less likely abscess IMPRESSION: Suspicious for gastritis Recommend MRCP follow-up to confirm acute calculus cholecystitis Acute pancreatitis Mild fluid collections in the subcutaneous fatty tissue of the lower abdominal wall, consider hematoma, seroma, less likely abscess -- Examination: Abdomen sonogram, Limited Date and time of exam: June 08, 2025, 0137 hours INDICATIONS: Onset epigastric pain today Technique: Real-time solis scale transabdominal sonographic images of the upper abdomen obtained. Findings: Multiple gallstones Gallbladder wall 0.2 cm no edema Common bile duct 0.4 cm no stones Pancreatic head 2.5 cm Liver 16.9 cm no focal liver lesions Normal hepatopetal portal venous flow Patent IVC IMPRESSION: Cholelithiasis, negative for cholecystitis -- MRI abdomen, without contrast. MRCP Date and time of exam: June 08, 2025, 0752 hours INDICATIONS: Epigastric pain beginning yesterday, cholelithiasis on gallbladder sonogram today Technique: Multiple axial and coronal images of the abdomen have been obtained with the Siemens 1.5T MRI scanner. Images obtained included T1 weighted transverse images, T2-weighted transverse images, T2-weighted transverse images fat-suppressed, T2 weighted haste fat suppressed transverse images, T1 weighted images, in and out of phase images, T2-weighted coronal images, breath hold, T2 weighted haze coronal images as well as T2 weighted coronal thick slab images, MRCP. Findings: No intrahepatic biliary tract dilatation or focal liver lesion Multiple gallstones Suspicious for minimal edema involving the gallbladder wall Common bile duct Common hepatic duct normal in size with no stones Severe acute pancreatitis, no pancreatic pseudocyst Spleen is not enlarged No hydronephrosis Aorta normal size IMPRESSION: Cholelithiasis There is mild edema around the gallbladder Severe acute pancreatitis, the edema involving the pancreas likely is accounting for the mild fluid around the gallbladder Normal common hepatic common bile duct -- Examination: CTA chest with intravenous contrast 2-D reconstructions 3-D reconstructions, vascular Date and time of exam: June 08, 2025, 0116 hours INDICATIONS: 2 weeks with chest back pain and shortness of breath today, clinical diagnosis pulmonary embolus CTDI: vol (mGy) 17.1 DLP: (mGycm) 459 Technique: Multiple axial sections of the thorax have been obtained. 3 mm slice thickness, from below the hemidiaphragms to above the apices of the lungs. Mediastinal and lung density settings have been obtained. 2-D sagittal and coronal reconstructions. 3-D angiographic renderings, 3-D volume renderings, 3D post processing, vascular maximum intensity projections obtained. Contrast administered is 100 cc Isovue-370 intravenous. Low dose protocols were performed. One or more of the following dose reduction techniques were used; automated exposure control, adjustment of the mA and/or KV according to patient size, use of iterative reconstruction technique. Findings: No thoracic aortic aneurysmal dilatation or dissection Pulmonary artery segments are not enlarged. No pulmonary artery emboli No mediastinal lymphadenopathy. No pneumonia or pulmonary edema No pleural disease Mild prominence left atrium The osseous structures are intact IMPRESSION: No thoracic aortic aneurysmal dilatation Negative for pulmonary artery emboli. No pneumonia, pulmonary edema or pleural disease Assessment and Plan Assessment and plan (1) Pancreatitis: Status: Acute Assessment and plan: Genesis is a 20yo s/p uncomplicated PLTCS on 05/24 for arrest of dilation currently admitted (hospital day 4) for pancreatitis. On admission lipase was >3500, LFTs elevated, and imaging supported diagnosis along with cholelithiasis and gallbladder wall edema. She has been evaluated by General Surgery and plan is for cholecystectomy during current admission. -From OBGYN perspective, patient is healing well day 17 post- with no concerns regarding pfannenstiel wound healing and no concerns for endometritis or other obstetric-related infection -Will sign off for now. Please re-engage if any further concerns. Franca Ferreira MD phone: [phone] (2) delivery delivered: Status: Acute (3) Obesity (BMI 35.0-39.9 without comorbidity): Status: Acute (4) Gestational diabetes: Status: Acute (1) Pancreatitis Qualifiers: Chronicity: acute Pancreatitis type: unspecified pancreatitis type Acute pancreatitis complication: no infection or necrosis Qualified Code(s): K85.90 - Acute pancreatitis without necrosis or infection, unspecified (4) Gestational diabetes Qualifiers: Gestational diabetes mellitus control: diet-controlled Trimester: unspecified trimester Qualified Code(s): O24.410 - Gestational diabetes mellitus in , diet controlled
--- NOTE | 2025-06-10 14:22 | PD.SURPROG ---
Documentation for date of: 06/10/25 Subjective Subjective Brief History: 20F s/p on 05/24/25 who presented to ER with epigastric pain radiating to the back. Patient reports she has had this pain on and off for the last few months, she was initially treated for gastritis and the medication did help but for the past few days she is having worsening of this pain associated with nausea and vomiting. In ER she underwent CT showing signs of acute pancreatitis as well as gallbladder ultrasound showing cholelithiasis and lipase was significantly elevated. As of today patient reports feeling much better, her pain has significantly decreased and she is tolerating clear liquids. Her main complaint is constipation, she has not had a bowel movement for the last few days PMH: None PSH: Meds: vitamins Allergies: NKDA Social history: No smoking, no alcohol use, is currently breast-feeding Narrative: Tmax 100.5 this am, it resolved without medications and pt states she feels overall well but still having some pain with deep breaths. Her LFTs are downtrending and she denies any nausea Exam Vital Signs Temp Pulse Resp BP Pulse Ox O2 Del Method 98.1 F 103 H 18 131/80 H 97 Room Air 06/10/25 12:00 06/10/25 12:00 06/10/25 12:00 06/10/25 12:00 06/10/25 12:00 06/10/25 12:00 Constitutional Constitutional: no acute distress Routine Respiratory Exam Respiratory: Present no resp distress Routine Abdominal Exam Abdominal: Present soft and tenderness (mild epigastric tenderness); Absent distended, rebound or guarding Results Results: Laboratory Laboratory results: results reviewed Assessment & Plan Plan 20F s/p on 05/24/25 who presented to ER with epigastric pain radiating to the back, nausea and vomiting with signs and symptoms of pancreatitis likely related to gallstones. I explained that cholecystectomy is recommended during this admission to prevent future episodes of gallstone pancreatitis and enumerated risks of surgery including need for conversion to open, bleeding, infection, and injury to nearby structures requiring further procedures or a major reconstructive surgery which would require transfer to another hospital. All questions were answered and patient is agreeable to proceeding. Given her fever and mild tenderness this morning I opted to delay the case in the hopes of minimizing complications, and will reevaluate for possible surgery as early as tomorrow am at 630 CLD, NPO after MN If pt remains afebrile with pain controlled will pursue surgery tomorrow at 630am
[2025-06-10] MEDS: PIPER/TAZO INJ 4.5 GM in SODIUM CHLORIDE 0.9% (POP) 100 ML IV ×2 (14:55→22:00)
[2025-06-11] VITALS (13 sets, daily range): BP systolic 117–148; BP diastolic 71–92; PULSE 63–110; RESP 17–24; TEMP 36.3–36.6; O2SAT 94–100
[2025-06-11] MEDS: RINGERS LACTATED 1000 ML 1,000 ML 100 ML IV ×2 (02:19→23:18)
[2025-06-11] MEDS: PIPER/TAZO INJ 4.5 GM in SODIUM CHLORIDE 0.9% (POP) 100 ML IV (05:17)
[2025-06-11 05:30] LABS: Basophils # (Auto) 0.1 Thou/mm3 (0.0-0.2); Basophils % (Auto) 1 % (0-2.5); Eosinophils # (Auto) 0.1 Thou/mm3 (0.0-0.5); Eosinophils % (Auto) 1 % (0-10); Hematocrit 35.4 % (36.0-46.0); Hemoglobin 11.5 g/dL (12.0-16.0); Immature Granulocytes Auto 0.06 Thou/mm3 (0.00-0.00); Lymphocytes # (Auto) 2.2 Thou/mm3 (1.0-4.8); Lymphocytes % (Auto) 21 % (10-50); Mean Corpuscular HGB Conc 32.5 g/dl (31.0-37.0); Mean Corpuscular Hemoglobin 28.3 pg (25.0-35.0); Mean Corpuscular Volume 87 fL (80-100); Monocytes # (Auto) 0.7 Thou/mm3 (0.0-0.8); Monocytes % (Auto) 6 % (0-12); Neutrophils # (Auto) 7.6 Thou/mm3 (1.8-7.7); Neutrophils % (Auto) 71 % (37-80); Nucleated Red Blood Cell # 0.00 Thou/mm3 (0.00-0.00); Nucleated Red Blood Cell % 0 /100 WBC (0); Platelet Count 257 Thou/mm3 (140-440); RDW Standard Deviation 40.0 fL (36.4-46.3); Red Blood Count 4.07 Miln/mm3 (4.00-5.20); White Blood Count 10.7 Thou/mm3 (3.6-11.0)
[2025-06-11 06:26] LABS: Alanine Aminotransferase 164 U/L (10-49); Albumin, Serum 3.7 gm/dL (3.5-5.0); Albumin/Globulin Ratio 1.4 (1.2-2.2); Alkaline Phosphatase 201 U/L (46-116); Anion Gap 10 (7-16); Aspartate Amino Transferase 37 U/L (0-34); BUN/Creatinine Ratio 8 Ratio (12-20); Bilirubin,Total 0.7 mg/dL (0.3-1.2); Blood Urea Nitrogen < 5 mg/dL (9-23); Calcium 8.7 mg/dL (8.3-10.6); Calcium (Corrected) 8.9 mg/dL (8.5-10.1); Carbon Dioxide 26.6 mMol/L (20.0-31.0); Chloride 105 mMol/L (98-107); Creatinine (Component) 0.6 mg/dL (0.6-1.3); Estimated Creatinine Clearance 170.6 mL/min (>60); Globulin 2.7 gm/dL (2.3-3.5); Glucose 98 mg/dL (74-106); Magnesium 1.6 mg/dL (1.6-2.6); Osmolality,Calculated 280 (275-295); Phosphorous 4.0 mg/dL (2.4-5.1); Potassium 3.5 mMol/L (3.4-5.1); Sodium 142 mMol/L (136-145); Total Protein 6.4 gm/dL (5.7-8.2); eGFR > 60 See Note
--- NOTE | 2025-06-11 10:52 | CHAP ---
Patient was visited by a Spiritual Care Volunteer on 06/11/2025 between 0930 and 1000 and received comfort, encouragement and/or prayer.
--- NOTE | 2025-06-11 13:00 | SUR.PHASEI ---
pt received from OR in recovery bay 4. pt obtunded, breathing unlabored on oxymask 8l, oral airway in place. v/s stable. pt dressing to abd x4 dermabond cdi. report received from Dr. Klein and Gloria PAGAN.
--- NOTE | 2025-06-11 13:04 | PD.SUROPNT ---
Date of Procedure 06/11/25 Pre Op Diagnosis Gallstone pancreatitis Post Op Diagnosis Same Procedure Laparoscopic cholecystectomy Findings Gallbladder with stones Procedure Description After discussion of risks and benefits, patient was brought to the operating room, SCDs were placed and general anesthesia was induced. She received preoperative antibiotics and was prepped and draped in usual sterile fashion. After timeout a supraumbilical incision was made with a #15 blade and the skin was elevated with towel clamps. A Veress needle was placed and proper positioning was confirmed with a drop test at which point the abdomen was insufflated to 15 mmHg. The Veress was then exchanged for a 5 mm camera using a Visiport technique. There were no signs of injury from the point of entry. 3 additional ports were placed under direct vision, one 12 mm at the epigastrium, one 5 mm right subcostal and one 5 mm at the anterior axillary line. Patient was placed in reverse Trendelenburg. The fundus of the gallbladder was grasped retracted cephalad and the infundibulum was grasped retracted laterally. The hepatocystic triangle was cleared of all fat and fibrous tissue using blunt dissection and the lower third of the gallbladder was from the gallbladder bed using electrocautery. Using blunt dissection, the critical view of safety was achieved and the cystic duct and cystic artery were clipped and transected in the usual fashion. The gallbladder was removed from the gallbladder bed using electrocautery. Hemostasis of the gallbladder bed was achieved with electrocautery and reinforced with Surgicel powder. The specimen was removed in an Endo Catch bag via the epigastric port and the epigastric fascia was closed with a 0 Vicryl suture using a Aaron-Juan. Counts were confirmed correct. Pneumoperitoneum was released and ports were removed under direct vision. Incisions were irrigated and infiltrated with half percent Marcaine for a total of 30 cc. Incisions were closed with 4 Monocryl and reinforced with Dermabond. Patient was extubated and brought to PACU in stable condition Pathology / specimen Other (Gallbladder) Estimated Blood Loss 50 Surgeon Jeanine Mills MD Surgical Staff Operation Date: 06/11/25 11:00 Case Staff Anesthesiologist: Rick Klein RN First Assistant: Calli Sarmiento
[2025-06-11] MEDS: ONDANSETRON INJ 2 MG/ML INJ 2 ML 4 MG IVP (13:20)
--- NOTE | 2025-06-11 14:08 | ESPR_ITS ---
Documentation for date of: 06/11/25 Subjective Subjective Interval history: No Overnight events. Labs reviewed and patient examined at the bedside. Today, patient received cholecystectomy. Patient feels slightly nauseated and mild abdominal pain. But does not have any new symptoms to report. Patient will be watched for 1 more day and will be discharged by tomorrow when her labs and symptoms are stable. Denies chest pain, palpation, SOB, fevers or chills. Exam Vital Signs Temp Pulse Resp BP Pulse Ox O2 Del Method O2 Flow Rate 97.6 F 68 20 140/92 H 99 Room Air 2 06/11/25 14:00 06/11/25 14:00 06/11/25 14:00 06/11/25 14:00 06/11/25 14:00 06/11/25 08:00 06/11/25 14:00 Narrative Exam General: No acute distress, well nourished, AAO x3 Eye: PERRL, EOMI, normal conjunctiva, no scleral icterus HENT: Normocephalic, atraumatic, hearing intact to conversation at normal volume, moist oral mucosa Neck: Supple, non-tender, no JVD, no lymphadenopathy Lungs: Non-labored respirations, symmetric chest rise, Clear to auscultate bilaterally, No wheezing, rhonchi, crackles Heart: Peripheral pulses intact bilaterally, Regular Rate and Rhythm. Abdomen: Soft, non-distended, no palpable masses, LUQ pain on palpation. Musculoskeletal: Normal range of motion and strength, No cyanosis or edema, No visible joint swelling Skin: Skin is warm, dry, no rashes or lesions. Psychiatric: Cooperative, appropriate mood and affect, Awake and alert, not agitated Neuro: Cranial nerves II-XII grossly intact.Sensations intact to light touch. Objective Labs 06/12/25 05:26 06/12/25 05:26 Labs: Laboratory Results - last 24 hr 06/11/25 05:14 WBC 10.7 RBC 4.07 Hgb 11.5 L Hct 35.4 L MCV 87 MCH 28.3 MCHC 32.5 RDW Std Deviation 40.0 Plt Count 257 Neut % (Auto) 71 Lymph % (Auto) 21 [place] % (Auto) 6 Eos % (Auto) 1 Baso % (Auto) 1 Neut # (Auto) 7.6 Lymph # (Auto) 2.2 [place] # (Auto) 0.7 Eos # (Auto) 0.1 Baso # (Auto) 0.1 Immature Gran # (Auto) 0.06 H Absolute Nucleated RBC 0.00 Immature Gran % 1 H Nucleated RBC % 0 Sodium 142 Potassium 3.5 Chloride 105 Carbon Dioxide 26.6 Anion Gap 10 BUN < 5 L Creatinine 0.6 Estim Creat Clear Calc 170.6 eGFR > 60 BUN/Creatinine Ratio 8 L Glucose 98 Calculated Osmolality 280 Calcium 8.7 Corrected Calcium 8.9 Phosphorus 4.0 Magnesium 1.6 Total Bilirubin 0.7 AST 37 H ALT 164 H Alkaline Phosphatase 201 H D Total Protein 6.4 Albumin 3.7 Globulin 2.7 Albumin/Globulin Ratio 1.4 Quality Measures Quality Measures none Assessment & Plan Assessment Current Active Medications: Generic Name Dose Route Start Last Admin Trade Name Freq PRN Reason Stop Dose Admin Acetaminophen 650 mg 06/08/25 13:00 06/09/25 15:55 Acetaminophen 325 Mg Tablet PO 07/08/25 12:59 650 mg On Hold: 06/11/25 12:12 Q6H PRN Administration Resume: 06/11/25 14:11 PAIN OR FEVER > 101 Protocol Hydrocodone Bitart/Acetaminophen 1 tab 06/08/25 13:00 06/09/25 21:02 Hydrocodone/Apap 5/325 Tablet PO 06/13/25 12:59 1 tab On Hold: 06/11/25 12:12 Q4HR PRN Administration Resume: 06/11/25 14:11 PAIN SCALE 4-6 (Moderate Enoxaparin Sodium 40 mg 06/09/25 09:00 06/09/25 08:18 Enoxaparin Sod Inj 40 Mg/0.4 Ml Syringe SC 06/23/25 08:59 40 mg On Hold: 06/10/25 11:25 QDAY SINDHU Administration Famotidine 20 mg 06/09/25 09:00 06/11/25 08:55 Famotidine 20 Mg Tablet PO 07/09/25 08:59 Not Given QDAY SINDHU Fentanyl Citrate 25 mcg 06/11/25 12:10 Fentanyl Cit Inj 50 Mcg/Ml Amp 2ml IVP 06/11/25 14:10 Q5M PRN PAIN SCALE 7-10 (Severe Protocol Fentanyl Citrate 25 mcg 06/11/25 12:10 Fentanyl Cit Inj 50 Mcg/Ml Amp 2ml IVP 06/11/25 14:10 Q5M PRN PAIN SCALE 4-6 (Moderate Protocol Fentanyl Citrate 25 mcg 06/11/25 12:10 Fentanyl Cit Inj 50 Mcg/Ml Amp 2ml IVP 06/11/25 14:11 Q5M PRN PAIN SCALE 1-3 (mild Protocol Lactated Ringer's 1,000 mls @ 100 mls/hr 06/09/25 08:15 06/11/25 02:19 Lactated Ringers IV 07/09/25 08:14 100 mls/hr .Q10H SINDHU Administration Piperacillin Sod/Tazobactam 100 mls @ 200 mls/hr 06/10/25 14:00 06/11/25 05:17 Sod 4.5 gm/ Sodium Chloride IV 06/17/25 13:59 200 mls/hr Q8HR SINDHU Administration Protocol Morphine Sulfate 2 mg 06/08/25 13:00 Morphine Sulf Inj 4 Mg/Ml Vial IVP 06/13/25 12:59 On Hold: 06/11/25 12:12 Q4HR PRN Resume: 06/11/25 14:11 PAIN SCALE 7-10 (Severe Ondansetron HCl 4 mg 06/08/25 13:00 Ondansetron Inj 2 Mg/Ml Inj 2 Ml IVP 07/08/25 12:59 Q6H PRN NAUSEA OR VOMITING Protocol Polyethylene Glycol 17 gm 06/09/25 11:27 06/09/25 13:24 Polyethylene Glycol 17 Gm Packet PO 07/10/25 08:59 17 gm QDAY PRN Administration CONSTIPATION Sennosides 1 tab 06/09/25 09:00 06/11/25 08:55 Senna Tablet PO 07/09/25 08:59 Not Given QDAY SINDHU Protocol Plan 20-year-old female with PMH of on 05/24/2025 was admitted for management of gallstone pancreatitis. #Gallstone pancreatitis #Cholelithiasis #Cholecystitis -Presented with chief complaints of abdominal pain mainly located on epigastric area that will radiate to the back. -Patient's LFTs are downtrending. AST is 65 from 244. ALT is 236 from 452. ALP is 223 from 309. -Patient had a spike of fever of 100.5 F on 06/10 morning. Currently suspecting cholecystitis. -CT abdomen/pelvis showed suspicious for gastritis, acute pancreatitis. -Gallbladder ultrasound revealed cholelithiasis, negative for cholecystitis. -MRCP revealed cholelithiasis, mild edema around the gallbladder. Severe acute pancreatitis the edema involving the pancreas likely is accounting for the mild fluid around the gallbladder, normal common bile duct, no stones. -In ED patient received IVF, along with pain management -Blood culture is negative for 48hrs x2. Plan: -Started on Zosyn 4.5 g IV Q8HR.(06/10-) -Pain control as needed with [place] and morphine -Monitor urine output -Keep n.p.o. -Received cholecystectomy. #Transaminitis -Patient's LFTs are downtrending. -Follow-up with daily CMP #Status post (05/24/2025) -Consulted OBGYN. -Per OBGYN, no concerns regarding pfannenstiel wound healing and no concerns for endometritis or other obstetric-related infection Disposition: MedSurg DVT prophylaxis: Lovenox holding , pending surgery tomorrow GI prophylaxis: famotidine Diet: Clear liquid diet Lines: PIV CODE STATUS:Full code Assessment and plan discussed with my attending physician Dr. Lala Tiwari (PGY-1) - Internal medicine resident Attending Provider Attestation/Addendum I reviewed labs, imaging, EKG, home medications and prior available records. Face to face evaluation was performed by me. I have personally examined the patient and discussed assessment and plan with the IM team. I reviewed the resident note and agree with the plan with exceptions as below. Acute pancreatitis Cholelithiasis Transaminitis Status post Patient spiked a fever and she was tachycardic. Surgery deferred cholecystectomy till 06/11 She is status post laparoscopic cholecystectomy on 06/11 Discussed with surgery: Okay to discharge once symptoms improve and diet is tolerated No need for IV Zosyn upon discharge Monitor LFTs: Downtrending Consulted CLINICAL PRODUCT MANAGER: No concern for infection related to or CLINICAL PRODUCT MANAGER related complications
--- NOTE | 2025-06-11 14:20 | SUR.PHASEI ---
pt asleep but responds to voice, breathing unlabored on 2l nc. v/s stable. pt dressing to abd dermabond x4 cdi. report called to Jennifer Up.
[2025-06-11] MEDS: HYDROcodone/APAP 5/325 TABLET 1 TAB PO ×2 (18:06→21:49)
[2025-06-11] MEDS: ACETAMINOPHEN 325 MG TABLET 650 MG PO (21:00)
[2025-06-12] VITALS: BP 122/70; PULSE 60; RESP 18; TEMP 36.5; O2SAT 96
[2025-06-12 04:00] VITALS: BP 126/72; PULSE 54; RESP 16; TEMP 37.1; O2SAT 99
[2025-06-12 05:57] LABS: Basophils # (Auto) 0.0 Thou/mm3 (0.0-0.2); Basophils % (Auto) 0 % (0-2.5); Eosinophils # (Auto) 0.0 Thou/mm3 (0.0-0.5); Eosinophils % (Auto) 0 % (0-10); Hematocrit 38.7 % (36.0-46.0); Hemoglobin 12.7 g/dL (12.0-16.0); Immature Granulocytes Auto 0.05 Thou/mm3 (0.00-0.00); Lymphocytes # (Auto) 1.5 Thou/mm3 (1.0-4.8); Lymphocytes % (Auto) 12 % (10-50); Mean Corpuscular HGB Conc 32.8 g/dl (31.0-37.0); Mean Corpuscular Hemoglobin 28.5 pg (25.0-35.0); Mean Corpuscular Volume 87 fL (80-100); Monocytes # (Auto) 0.3 Thou/mm3 (0.0-0.8); Monocytes % (Auto) 3 % (0-12); Neutrophils # (Auto) 10.2 Thou/mm3 (1.8-7.7); Neutrophils % (Auto) 85 % (37-80); Nucleated Red Blood Cell # 0.00 Thou/mm3 (0.00-0.00); Nucleated Red Blood Cell % 0 /100 WBC (0); Platelet Count 253 Thou/mm3 (140-440); RDW Standard Deviation 39.6 fL (36.4-46.3); Red Blood Count 4.46 Miln/mm3 (4.00-5.20); White Blood Count 12.0 Thou/mm3 (3.6-11.0)
[2025-06-12 06:18] LABS: Alanine Aminotransferase 162 U/L (10-49); Albumin, Serum 3.6 gm/dL (3.5-5.0); Albumin/Globulin Ratio 1.4 (1.2-2.2); Alkaline Phosphatase 198 U/L (46-116); Anion Gap 9 (7-16); Aspartate Amino Transferase 63 U/L (0-34); BUN/Creatinine Ratio 13 Ratio (12-20); Bilirubin,Total 0.5 mg/dL (0.3-1.2); Blood Urea Nitrogen 5 mg/dL (9-23); Calcium 8.9 mg/dL (8.3-10.6); Calcium (Corrected) 9.2 mg/dL (8.5-10.1); Carbon Dioxide 25.7 mMol/L (20.0-31.0); Chloride 106 mMol/L (98-107); Creatinine (Component) 0.4 mg/dL (0.6-1.3); Estimated Creatinine Clearance 255.8 mL/min (>60); Globulin 2.6 gm/dL (2.3-3.5); Glucose 136 mg/dL (74-106); Magnesium 1.8 mg/dL (1.6-2.6); Osmolality,Calculated 280 (275-295); Phosphorous 4.6 mg/dL (2.4-5.1); Potassium 4.3 mMol/L (3.4-5.1); Sodium 141 mMol/L (136-145); Total Protein 6.2 gm/dL (5.7-8.2); eGFR > 60 See Note
[2025-06-12] MEDS: FAMOTIDINE 20 MG TABLET PO (08:07)
[2025-06-12 08:10] VITALS: BP 119/79; PULSE 52; RESP 16; TEMP 36.4; O2SAT 99
--- NOTE | 2025-06-12 08:25 | PD.RESDS ---
Planned Discharge Date 06/12/25 DS: Providers Provider Date of admission: 06/08/25 13:00 Primary care physician: Physician No Primary/Family Admitting Provider: John Mcfarland MD Attending Provider on Admission: Quoc Cristobal MD Consults: 06/08/25 13:07 Consult to General Surgery Stat Comment: gallstone pancreatitis. Consulting Provider: Jeanine Mills 06/10/25 10:11 Consult to Gynecology Routine Comment: 05/26. Fever, Leukocytosis Consulting Provider: Franca Ferreira Attending Provider on DC: Kranthi Tiwari DO Discharging Provider: Kranthi Tiwari DO DS: Diagnosis Problem List Completed Was Problem List Reviewed/Reconciled?: Yes Hospital Course Hospital Course Hospital course: Summary: 20-year-old female, with PMH of on 05/24/2025, presented to ED on 06/08/2025 with chief complaints of severe upper abdominal pain that was radiating to the back. Imaging showed acute pancreatitis with cholelithiasis. Patient received cholecystectomy on 06/11. She was discharged the next day on 06/12. ED Course: On presentation patient was hemodynamically stable, however labs revealed severely elevated lipase above 3500, T. bili was 1.3, AST ALT above 200, ALP 298. Further imaging CT abdomen/pelvis showed suspicious for gastritis, acute pancreatitis. Gallbladder ultrasound revealed cholelithiasis, negative for cholecystitis. MRCP revealed cholelithiasis, mild edema around the gallbladder. Severe acute pancreatitis the edema involving the pancreas likely is accounting for the mild fluid around the gallbladder, normal common bile duct, no stones. Patient in ED received opioids and IV fluids and was admitted for acute pancreatitis secondary due to cholelithiasis treatment and management. Hospital Course: Upon admission patient received IVF and pain control medication as [place] and morphine as needed. General surgery has been consulted and cholecystectomy has been scheduled. During the stay patient had a spike of fever of 100.5 F on 06/10, so her surgery has been delayed and STE[employer] AND G[employer] TURBINE ASSEMBLER has been consulted because patient had a on 05/24/2025 and per STEAM AND GAS TURBINE ASSEMBLER perspective, patient's wound is healing well and has no concerns for obstetric related infection. Patient was given IV Zosyn 4.5 g every 8 HR and continued on IVF LR at 100 mL/h. Blood culture was negative for 48 hours x 2. Patient's LFTs were downtrending. Patient received cholecystectomy on 06/11. Today, 06/12, patient is doing well with mild abdominal pain on the surgical site. The wound is healing well without any erythema or drainage on examination. Patient's vital stable, afebrile with 97.6 F. WBC count increased to 12.0 from 10.7, likely due to cholecystectomy she received. She was discharged with instructions to follow up with general surgeon, Dr. Mills, within 2 weeks of discharge. STABLE to discharge to HOME Instructions: Take [id number] Tylenol for pain as needed Follow-up with your PCP within 1 week of discharge or follow-up at the [address] [place] [address] Follow-up with general surgeon, Dr. Mills, within 2 weeks of discharge If your pain worsens or if you start to develop new chest pain, shortness of breath, fever/chills or bleeding - please come back to the ED immediately You may resume showering in 2 days, on 06/13 It is okay to get incisions wet at that time, pat them dry after Avoid bathing or swimming for 2 weeks Avoid lifting objects greater than 10 pounds for 6 weeks During the surgery we fill your abdomen with air in order to see the structures. Some of this air tends to linger and cause pain that is referred to the shoulder as well as pain with deep breaths. This will get better with time. Being out of bed and walking will help the air to absorb faster If you develop worsening pain, nausea/vomiting, fever or signs of jaundice please seek care in ER #Gallstone pancreatitis #Cholelithiasis #Cholecystitis #Transaminitis #Status post (05/24/2025) Assessment and plan discussed with my attending physician Dr. Lala Tiwari (PGY-1) - Internal medicine resident Time Spent with Patient Time attestation: Total time spent providing and/or coordinating discharge services: Time spent: Greater than 30 minutes Exam Vital Signs Temp Pulse Resp BP Pulse Ox O2 Del Method O2 Flow Rate 97.6 F 52 L 16 119/79 99 Room Air 2 06/12/25 08:10 06/12/25 08:10 06/12/25 08:10 06/12/25 08:10 06/12/25 08:10 06/12/25 08:10 06/11/25 14:15 Narrative Exam General: No acute distress, well nourished, AAO x3 Eye: PERRL, EOMI, normal conjunctiva, no scleral icterus HENT: Normocephalic, atraumatic, hearing intact to conversation at normal volume, moist oral mucosa Neck: Supple, non-tender, no JVD, no lymphadenopathy Lungs: Non-labored respirations, symmetric chest rise, Clear to auscultate bilaterally, No wheezing, rhonchi, crackles Heart: Peripheral pulses intact bilaterally, Regular Rate and Rhythm. Abdomen: Soft, non-distended, no palpable masses, LUQ pain on palpation. Musculoskeletal: Normal range of motion and strength, No cyanosis or edema, No visible joint swelling Skin: Skin is warm, dry, no rashes or lesions. Psychiatric: Cooperative, appropriate mood and affect, Awake and alert, not agitated Neuro: Cranial nerves II-XII grossly intact.Sensations intact to light touch. Discharge Plan Plan Patient Disposition: HOME (Self Care) Care Plan Goals: Take [id number] Tylenol for pain as needed Follow-up with your primary care provider within 1 week of discharge or follow-up at the [address] [place] [address] Follow-up with general surgeon, Dr. Mills, within 2 weeks of discharge If your pain worsens or if you start to develop new chest pain, shortness of breath, fever/chills or bleeding - please come back to the ED immediately Prescriptions/Referrals Prescriptions/Med Rec: No Action No Known Home Medications Referrals: Jeanine Mills MD [Physician, General Surgery] Referral Note: You will receive a message to confirm a follow-up appt with me in 2 weeks No Primary/Family,Physician [Primary Care Provider] Patient/Caregiver Discharge Instructions Other Discharge Activity Instructions:: You may resume showering in 2 days, on 06/13 It is okay to get incisions wet at that time, pat them dry after Avoid bathing or swimming for 2 weeks Avoid lifting objects greater than 10 pounds for 6 weeks During the surgery we fill your abdomen with air in order to see the structures. Some of this air tends to linger and cause pain that is referred to the shoulder as well as pain with deep breaths. This will get better with time. Being out of bed and walking will help the air to absorb faster If you develop worsening pain, nausea/vomiting, fever or signs of jaundice please seek care in ER Education Materials: Preventing Surgical Site Infections Print Language: Yoruba Stand Alone Forms: [facility] Award Info., Patient Portal Info Letter Discharge Order Discharge Orders: Discharge (Routine); Ordered 06/12/25 Ordered By: Kranthi Tiwari Quality Discharge Quality Measures VTE prophylaxis Attestestation Attestation I reviewed labs, imaging, EKG, home medications and prior available records. Face to face evaluation was performed by me. I have personally examined the patient and discussed assessment and plan with the IM team. I reviewed the resident note and agree with the plan with exceptions as below. Acute pancreatitis Cholelithiasis Transaminitis Status post Patient spiked a fever and she was tachycardic. Surgery deferred cholecystectomy till 06/11 She is status post laparoscopic cholecystectomy on 06/11 Discussed with surgery: Okay to discharge once symptoms improve and diet is tolerated Symptoms improved on the morning of 06/12 and she was ready for discharge Okay to resume Monitor LFTs: Downtrending Consulted THERMOFORMING OPERATOR: No concern for infection related to or THERMOFORMING OPERATOR related complications Outpatient follow-up with THERMOFORMING OPERATOR Time spent is 35 minutes. More than 50% of the time was spent on patient education and coordination of care.
[2025-06-12] MEDS: RINGERS LACTATED 1000 ML 1,000 ML 100 ML IV (09:14)
== END 2025-06-12 11:55 | disposition home or self-care (01) | DRG 263 ==
LOC: SERX 06-08 12:08 → SERHOLD 06-08 13:35 → S3SX 06-08 14:47
PROVIDERS: Anesthesiology; Physician Assistant; Student in an Organized Health Care Education/Training Program; Surgery; Admitting Provider Internal Medicine; Emergency Provider Emergency Medicine; Visit Provider Obstetrics & Gynecology
PROC: 0FT44ZZ Resection of Gallbladder, Percutaneous Endoscopic Approach (ICD-10-PCS; CPT 47562; principal; 2025-06-11 11:00)
DX: K85.10 Biliary acute pancreatitis without necrosis or infection (principal); R74.01 Elevation of levels of liver transaminase levels; K59.00 Constipation, unspecified; E66.9 Obesity, unspecified; K80.10 Calculus of gallbladder with chronic cholecystitis without obstruction; Z68.38 Body mass index [BMI] 38.0-38.9, adult
CPT/HCPCS: 36415; 71045; 71275; 74177; 74181; 76705; 80053; 80061; 80076; 80307; 81001; 83605; 83690; 83735; 83880; 84100; 84145; 84443; 84478; 84484; 84703; 85025; 85379; 85610; 85652; 85730; 86140; 87040; 93005; 99285; A4217; A4649; J0131; J1100; J1171; J1650; J2250; J2405; J2543; J2704; J3010; J3490; J7120; Q9967; A9270

== ENCOUNTER 2025-07-01 10:00 | Outpatient (AMB) | payer MEDICAID, SELFPAY ==
[2025-07-01 10:09] VITALS: BP 121/70; PULSE 70; RESP 18; TEMP 36.1; O2SAT 97; BMI 34.2
--- NOTE | 2025-07-01 10:09 | GSCOFFNT_ITS ---
Vital Signs - [facility] 07/01/25 10:09 Height 1.63 m Height Method Measured Weight 90.86 kg Weight Measurement Method Standing Scale BMI 34.2 BP 121/70 Blood Pressure Source Automatic Cuff Blood Pressure Location Left Upper Arm Position Sitting Respiration 18 Pulse 70 Pulse Source Monitor Temp 96.9 F Temp Source Temporal Artery Scan Pulse Oximetry (%) 97 Oxygen Delivery Method Room Air Med/Allergies Allergies & Medications Allergies No Known Allergies Allergy (Verified 07/01/25 10:10) Medication Reconciliation No Known Home Medications 06/08/25 [History Confirmed 07/01/25] MA Intake Visit Data Collection New Patient or Established: Established Patient (seen at [facility] within 3 years) Seen by Clinical Staff ONLY (RN/MA): No Reason for Visit:: [facility] [place] F/U Pain Present Currently: No Pain scale:: 0 Pain Scale Used: Caceres-Lomas/Numerical Skimmer Required: Yes PCP or OBGYN visit in last 3 months: Yes Hx Now: No Do You Feel Safe at Home: Yes Authorities Contacted: N/A Smoking Status Smoking Status: Never smoker Immunization / Flu Flu Vaccine in the Last 12 Months: Yes Flu Vaccine Exclusion Criteria: Already Received Past Medical History Past Medical History NEUROLOGIC: Negative Cerebrovascular Accident, Transient Ischemic Attacks (TIA), Dementia, Alzheimer's Disease, Parkinson's Disease, Brain Tumor, Meningitis, Seizures, Epilepsy, Multiple Sclerosis, Cerebral Palsy, Amyotrophic Lateral Sclerosis (ALS/Esperanza Gehrig's), Guillain-[place] Syndrome, Spina Bifida, Paralysis, Peripheral Neuropathy, Teixeira's Palsy, Subdural Hematoma, Migraine, Head Trauma, Spinal Cord Injury or Traumatic Brain Injury CARDIAC: Negative Cardiac Disorders, Myocardial Infarction, Cardiac Arrhythmia, Atrial Fibrillation, Angina, Heart Murmur, Coronary Artery Disease, Atherosclerotic Heart Disease, Peripheral Vascular Disease, Hypercholesterolemia, Aneurysm, Congestive Heart Failure, Congenital Heart Disease, Valvular Heart Disease, Rheumatic Fever, Cardiomyopathy, Edema, Pericarditis, Cellulitis, Hypertension, Hypotension or Varicose Veins RESPIRATORY: Negative Chronic Obstructive Pulmonary Disease (COPD), Asthma, Bronchitis, Emphysema, Pneumonia, Pulmonary Fibrosis, Tuberculosis, Pulmonary Embolism, Pulmonary Edema, Sleep Apnea, CPAP Dependent, Respiratory Aspiration, Dyspnea, Orthopnea, Cough, Sputum Production, Wheezing, Chest Deformities, Smoking, Smoking Cessation Counseling, Smoking Exposure, Tobacco Use, Clubbing, Exposure to Respiratory Irritants or Intubation GASTROINTESTINAL: Negative Gastrointestinal Disorders, Liver Cancer, Hepatitis, Cirrhosis, Pancreatic Cancer, Pancreatitis, Celiac Disease, Gall Bladder Disease, Gastrointestinal Bleed, Esophageal Varices, Justin's Esophagus, Colitis, Ulcerative Colitis, Diverticulitis, Diverticulosis, Ulcer, Colorectal Cancer, Irritable Bowel, Crohn's Disease, Obstructive Bowel, Hiatal Hernia, Hem orrhoids, Gastroesophageal Reflux Disease or Obesity GENITOURINARY: Negative Genitourinary Disorders, Renal Disease, Kidney Stones, Polycystic Kidney Disease, Neurogenic Bladder, Inguinal Hernia, Dialysis, Prostate Cancer or Benign Prostatic Hyperplasia REPRODUCTIVE: Negative Breast Cancer, Endometriosis, Fibroids, Genital Herpes, Gonorrhea, Pelvic Inflammatory Disease, Hx Polycystic Ovarian Syndrome, Previous Pregnancies, Syphilis, Testicular Cancer or Uterine Prolapse MUSCULOSKELETAL: Negative Muscular Dystrophy, Myasthenia Gravis, Marfan's Syndrome, Bone Cancer, Arthritis, Rheumatoid Arthritis, Osteoporosis, Degenerative Disk Disease, Gout, Scoliosis, Carpal Tunnel Syndrome, Fibromyalgia, Fractures, Degenerative Joint Disease, Osteomyelitis or Poliovirus ENT: Negative Cataracts, Glaucoma, Blind, Retinal Detachment, Macular Degeneration, Ear Infection, Deafness, Head Trauma or Eye Prosthesis ENDOCRINE: Negative Diabetes Mellitus Type 1, Diabetes Mellitus Type 2, Hypoglycemia, Latrobe's Syndrome, Ray's Disease, Hyperthyroidism, Hypothyroidism, Thyroid Cancer, Parathyroid Disease, Pituitary Disease, Systemic Lupus Erythematosus, Syndrome of Inappropriate Antidiuretic Hormone (SIADH), Adrenal Disease or Graves' Disease HEMATOLOGIC: Positive Anemia; Negative Blood Disorders, Leukemia, Hemophilia, Thalassemia, Sickle Cell Disease or Clotting Problems PSYCHO/SOCIAL: Positive Anxiety; Negative Schizophrenia, Recreational Drug Use, Bipolar Disorder, Depression, Behavior Problems, Self-Mutilation, Attention Deficit Disorder, Attention Deficit Hyperactivity Disorder, Depression, Post Traumatic Stress Disorder or Eating Disorder OTHER HISTORY: Negative Hospitalization, Down Syndrome, Autism, Developmental Delay, Cosmetic Surgery, Shingles, Falls, Blood Transfusions, Blood Transfusion Reaction, Anesthesia Reactions, Organ Transplant, Chemotherapy, Radiation Therapy, Hyperbaric Therapy, MRSA, VRSA, Vancomycin-Resistant Enterococci, Human Immunodeficiency Virus (HIV), Chicken Pox, Measles, Mumps, Rubella (Chinese Measles), Pertussis, Hx Klebsiella Pneumoniae Carbapenemase (KPC)-Producing Bacteria, Clostridium Difficile, Hepatitis A, Hepatitis B, Hepatitis C, Communicable Disease, Cancer, Breast Cancer, Cervical Cancer, Colorectal Cancer, Lung Cancer, Ovarian Cancer, Prostate Cancer or Testicular Cancer Family History FAMILY HISTORY: Negative Family Psychiatric Problems, Family Respiratory Disorders, Family Cardiac Disorders, Family Gastrointestinal Problems, Family Cancer, Family Surgery or Family Anesthesia Reaction Surgical History SURGICAL: Positive Section (x1); Negative Coronary Artery Bypass Graft, Valve Replacement, Pacemaker, Carotid Endarterectomy, Thyroidectomy, Ear Surgery, Abdominal Surgery, Nephrectomy, Joint Replacement, Neurologic Surgery, Lumpectomy, Hysterectomy or Organ Transplant Social History SMOKING STATUS: Smoking status: Never smoker SECOND HAND EXPOSURE: second hand exposure: No ALCOHOL: Alcohol Intake: Never ALCOHOL FREQUENCY: Alcohol Intake Frequency: holidays/special occasions only HOUSING: Housing: Apartment LIVES WITH: Lives With: Family HPI HPI Narrative 20F s/p lap clayton 06/11/25 for gallstone pancreatitis here for planned follow up. Pt reports feeling very well overall; she has no pain, no nausea, is eating well and denies any fever or diarrhea ROS Constitutional Constitutional: Reports system reviewed and no additional complaints, except as documented Objective/Exam General General Appearance: alert, cooperative and well groomed Resp Respiratory exam: Absent respiratory distress Abdominal Abdominal exam: Present soft and incision (c/d/i, no erythema, no fluctuance or tenderness); Absent distention or tenderness Results Pathology of gallbladder reviewed Assessment & Plan Diagnosis / Problem List (1) Pancreatitis: Status: Acute Qualifiers: Chronicity: acute Pancreatitis type: unspecified pancreatitis type Acute pancreatitis complication: no infection or necrosis Qualified Code(s): K85.90 - Acute pancreatitis without necrosis or infection, unspecified Assessment & Plan: 20F s/p lap clayton 06/11/25 for gallstone pancreatitis here for planned follow up, recovering very well overall. I advised pt to avoid strenuous activity including lifting objects >10lbs for 6 weeks postop. All questions were answered and pt is encouraged to reach out as needed Office Procedures GNS Level of Care Nursing/Assessment Patient Status: Established Patient Nursing Assessment/Reassesment: Medication Reconciliation, Update PMH in EMR and Vital Signs Coordination of Care: Complex Care and Chronic Disease 1-5, Education Complex Pt/Fam, Consent,records obtained, informed consent, Results/Orders obtained and Staff clarify orders Special Needs: Language special needs Established Patient Charge Established Patient Point Assignment: 95 Established Patient Point Charge: Level 3 (80-115) Patient Portal Questionaires Social History Living Situation History Lives With: Family Housing: Apartment Tobacco History Smoking Status: Never smoker Second Hand Smoke Exposure: No Alcohol History Alcohol Intake: Never Alcohol Intake Frequency: holidays/special occasions only Substance Use History Substance Use: none Domestic Abuse History Do You Feel Safe at Home: Yes Review of Systems Report any current symptoms Only answer those that you have currently: Past Medical History Past Medical History Have you ever been diagnosed with any of the following: Neurological Problems Cerebrovascular Accident (CVA): No Transient Ischemic Attacks (TIA): No Dementia: No Alzheimer's Disease: No Parkinson's Disease: No Brain Tumor: No Meningitis: No Seizures: No Epilepsy: No Multiple Sclerosis: No Cerebral Palsy: No Amyotrophic Lateral Sclerosis (ALS/Esperanza Gehrig's): No Guillain-[place] Syndrome: No Spina Bifida: No Paralysis: No Peripheral Neuropathy: No Teixeira's Palsy: No Subdural Hematoma: No Migraine: No Head Trauma: No Spinal Cord Injury: No Traumatic Brain Injury: No Cardiology Problems Myocardial Infarction: No Cardiac Arrhythmia: No Atrial Fibrillation: No Angina: No Heart Murmur: No Coronary Artery Disease: No Atherosclerotic Heart Disease: No Peripheral Vascular Disease: No Hypercholesterolemia: No Aneurysm: No Congestive Heart Failure: No Congenital Heart Disease: No Valvular Heart Disease: No Rheumatic Fever: No Cardiomyopathy: No Edema: No Pericarditis: No Cellulitis: No Hypertension: No Hypotension: No Varicose Veins: No Respiratory Problems Chronic Obstructive Pulmonary Disease (COPD): No Asthma: No Bronchitis: No Emphysema: No Pneumonia: No Pulmonary Fibrosis: No Tuberculosis: No Pulmonary Embolism: No Pulmonary Edema: No Sleep Apnea: No CPAP Dependent: No Respiratory Aspiration: No Dyspnea: No Orthopnea: No Hx Cough: No Cough: No Wheezing: No Chest Deformities: No Smoking: No Smoking Cessation Counseling: No Smoking Exposure: No Tobacco Use: No Clubbing: No Exposure to Respiratory Irritants: No Intubation: No Stomache/Intestinal Problems Liver Cancer: No Hepatitis: No Cirrhosis: No Pancreatic Cancer: No Pancreatitis: No Celiac Disease: No Gall Bladder Disease: No Gastrointestinal Bleed: No Esophageal Varices: No Justin's Esophagus: No Colitis: No Ulcerative Colitis: No Diverticulitis: No Diverticulosis: No Ulcer: No Colorectal Cancer: No Irritable Bowel: No Crohn's Disease: No Obstructive Bowel: No Hiatal Hernia: No Hemorrhoids: No Gastroesophageal Reflux Disease: No Obesity: No Genital/Urinary Problems Renal Disease: No Kidney Stones: No Polycystic Kidney Disease: No Neurogenic Bladder: No Inguinal Hernia: No Dialysis: No Reproductive Problems Breast Cancer: No Endometriosis: No Fibroids: No Genital Herpes: No Gonorrhea: No Pelvic Inflammatory Disease: No Polycystic Ovarian Syndrome: No Previous Pregnancies: No Syphilis: No Uterine Prolapse: No Musculoskeletal Problems Muscular Dystrophy: No Myasthenia Gravis: No Marfan's Syndrome: No Bone Cancer: No Arthritis: No Rheumatoid Arthritis: No Osteoporosis: No Degenerative Disk Disease: No Gout: No Scoliosis: No Carpal Tunnel Syndrome: No Fibromyalgia: No Fractures: No Degenerative Joint Disease: No Osteomyelitis: No Poliovirus: No Head,Eye,Nose,Throat Problems Cataracts: No Glaucoma: No Blind: No Retinal Detachment: No Macular Degeneration: No Chronic Ear Infections: No Deafness: No Eye Prosthesis: No Endocrine Problems Diabetes Mellitus Type 1: No Diabetes Mellitus Type 2: No Hypoglycemia: No Ching's Syndrome: No Art's Disease: No Hyperthyroidism: No Hypothyroidism: No Thyroid Cancer: No Parathyroid Disease: No Pituitary Disease: No Systemic Lupus Erythematosus: No Syndrome of Inappropriate Antidiuretic Hormone: No Adrenal Disease: No Graves' Disease: No Blood Problems Anemia: Yes Leukemia: No Hemophilia: No Thalassemia: No Sickle Cell Disease: No Clotting Problems: No Psychologic Problems Schizophrenia: No Recreational Drug Use: No Bipolar Disorder: No Depression: No Anxiety: Yes Behavior Problems: No Self-Mutilation: No Attention Deficit Disorder: No Attention Deficit Hyperactivity Disorder: No Depression: No Post Traumatic Stress Disorder: No Eating Disorder: No Other Problems Hospitalization: No Down Syndrome: No Autism: No Developmental Delay: No Cosmetic Surgery: No Shingles: No Falls: No Blood Transfusions: No Blood Transfusion Reaction: No Anesthesia Reactions: No Organ Transplant: No Chemotherapy: No Radiation Therapy: No Hyperbaric Therapy: No MRSA: No VRSA: No Vancomycin-Resistant Enterococci: No Human Immunodeficiency Virus (HIV): No Chicken Pox: No Measles: No Mumps: No Rubella (Chinese Measles): No Pertussis: No Klebsiella Pneumoniae Carbapenemase Producing Bacteria: No Clostridium Difficile: No Hepatitis A: No Hepatitis B: No Hepatitis C: No Communicable Disease: No Cancer: No Cervical Cancer: No Lung Cancer: No Ovarian Cancer: No Surgical History Angioplasty: No Appendectomy: No Bariatric Surgery: No Breast Surgery: No Cancer Surgery: No Carotid Endarterectomy: No Cholecystectomy: No Colectomy: No Colostomy: No Coronary Artery Bypass Graft: No Valve Replacement: No Herniorrhaphy: No Total Hip Replacement: No Total Knee Replacement: No Hysterectomy: No Pacemaker: No Sinus Surgery: No Splenectomy: No TAHBSO-Total Abdominal Hysterectomy: No Thyroidectomy: No Ureter Stent: No
== END 2025-07-01 10:30 | disposition home or self-care (01) ==
LOC: HODSRG 10:00
PROVIDERS: Supervising Provider Surgery; Visit Provider Surgery
DX: Z48.815 Encounter for surgical aftercare following surgery on the digestive system (principal)
CPT/HCPCS: 99213; G0463